=== PATIENT | female | born 1955 | race African-American/Black ===

== ENCOUNTER 2018-01-09 15:57 | Emergency (ER) | payer MEDICARE ==
[2018-01-09] MEDS ORDERED: Oxymetazoline HCl 0.05% ( 15 ML ) ONE (16:37)
[2018-01-09 16:39] LABS: #Basophils 0.1 thou/uL (0.0-0.2); #Eosinphils 0.4 thou/uL (0.0-0.7); #Lymphocytes 4.1 thou/uL (1.20-3.40); #Monocytes 0.5 thou/uL (0.11-0.59); #Neutrophils 3.7 thou/uL (1.40-6.50); %Basophils 1.1 % (0.0-1.0); %Eosinophils 4.6 % (0.0-10.0); %Lymphocytes 46.8 % (21.0-51.0); %Monocytes 5.2 % (0.0-10.0); %Neutrophils 42.4 % (42.0-75.0); Hemoglobin 11.2 g/dL (12.0-16.0); Mean Corpuscular HGB CONC 32.5 g/dL (32.0-36.0); Mean Corpuscular Hemoglobin 26.6 pg (27.0-31.0); Mean Corpuscular Volume 81.9 fL (78.0-98.0); Mean Platelet Volume 8.8 fL (7.4-10.4); Platelet Count 299 thou/uL (130-400); RBC Distribution Width 13.2 % (11.5-14.5); Red Blood Cell (RBC) Count 4.22 mill/uL (4.20-5.40); White Blood Cell (WBC) Count 8.7 thou/uL (4.8-10.8)
[2018-01-09 17:03] LABS: ALT (SGPT) 26 U/L (8-55); AST (SGOT) 17 U/L (5-34); Albumin 4.1 g/dL (3.4-4.8); Alkaline Phosphatase 116 U/L (40-150); Anion Gap 14 mmol/L (10-20); BUN (Urea Nitrogen) 23 mg/dL (9.8-20.1); Bilirubin, Total 0.2 mg/dL (0.2-1.2); Calc. Creatinine Clearance 0 mL/min (70-130); Calcium 9.5 mg/dL (7.8-10.44); Carbon Dioxide 25 mmol/L (23-31); Chloride 104 mmol/L (98-107); Estimated GFR-MDRD 52; Globulin 3.1 g/dL (2.4-3.5); Glucose 126 mg/dL (80-115); Potassium 3.8 mmol/L (3.5-5.1); Protein, Total 7.2 g/dL (6.0-8.3); Sodium 139 mmol/L (136-145)
[2018-01-09 17:04] LABS: CKMB 1.8 ng/mL (0-6.6); Troponin I Less than 0.010 ng/mL (< 0.028)
--- NOTE | 2018-01-09 17:05 | CT ---
CT BRAIN WITHOUT CONTRAST: Date: 01/09/18 HISTORY: Dizziness. FINDINGS: Comparison made with exam dated 07/19/14. No evidence of acute infarct, hemorrhage, midline shift, or abnormal extra-axial fluid collections ar e seen. The ventricular size is normal and the basilar cisterns are patent. The bony calvarium is int act. The visualized paranasal sinuses and mastoid air cells are well aerated. IMPRESSION: No CT evidence of acute intracranial process. POS: [facility]
--- NOTE | 2018-01-13 23:33 | EKG ---
Test Reason : Blood Pressure : / mmHG Vent. Rate : 078 BPM Atrial Rate : 078 BPM P-R Int : 158 ms QRS Dur : 086 ms QT Int : 390 ms P-R-T Axes : 069 -02 022 degrees QTc Int : 444 ms Normal sinus rhythm Normal ECG Confirmed by CAITLYN DOWNS MD ([id number]), editor publications TRESA GUEVARA ([id number]) on 01/13/2018 11:33:33 PM Referred By: Confirmed By:CAITLYN DOWNS MD
== END 2018-01-09 19:55 | disposition home or self-care (01) ==
LOC: ERS 15:57
DX: R42 Dizziness and giddiness (principal); I10 Essential (primary) hypertension; F32.9 Major depressive disorder, single episode, unspecified; Z79.899 Other long term (current) drug therapy
CPT/HCPCS: 70450; 80053; 82553; 84484; 85025; 93005

== ENCOUNTER 2018-01-25 00:02 | Emergency (ER) | payer MEDICARE ==
[2018-01-25 00:35] LABS: #Basophils 0.1 thou/uL (0.0-0.2); #Eosinphils 0.2 thou/uL (0.0-0.7); #Lymphocytes 5.7 thou/uL (1.20-3.40); #Neutrophils 7.4 thou/uL (1.40-6.50); %Basophils 0.8 % (0.0-1.0); %Eosinophils 1.7 % (0.0-10.0); %Lymphocytes 39.3 % (21.0-51.0); %Monocytes 7.2 % (0.0-10.0); %Neutrophils 51.1 % (42.0-75.0); Hemoglobin 11.8 g/dL (12.0-16.0); Mean Corpuscular HGB CONC 32.4 g/dL (32.0-36.0); Mean Corpuscular Hemoglobin 26.4 pg (27.0-31.0); Mean Corpuscular Volume 81.5 fL (78.0-98.0); Mean Platelet Volume 8.2 fL (7.4-10.4); Platelet Count 308 thou/uL (130-400); RBC Distribution Width 13.7 % (11.5-14.5); Red Blood Cell (RBC) Count 4.46 mill/uL (4.20-5.40); White Blood Cell (WBC) Count 14.5 thou/uL (4.8-10.8)
[2018-01-25 00:53] LABS: ALT (SGPT) 40 U/L (8-55); AST (SGOT) 18 U/L (5-34); Albumin 4.2 g/dL (3.4-4.8); Alkaline Phosphatase 123 U/L (40-150); Anion Gap 13 mmol/L (10-20); BUN (Urea Nitrogen) 34 mg/dL (9.8-20.1); Bilirubin, Total 0.3 mg/dL (0.2-1.2); Calc. Creatinine Clearance 0 mL/min (70-130); Carbon Dioxide 24 mmol/L (23-31); Chloride 105 mmol/L (98-107); Estimated GFR-MDRD 47; Globulin 3.1 g/dL (2.4-3.5); Glucose 113 mg/dL (80-115); Potassium 4.1 mmol/L (3.5-5.1); Protein, Total 7.3 g/dL (6.0-8.3); Sodium 138 mmol/L (136-145)
[2018-01-25 00:56] LABS: CKMB 2.6 ng/mL (0-6.6); Troponin I Less than 0.010 ng/mL (< 0.028)
[2018-01-25] MEDS ORDERED: Aspirin 325 MG TAB ONE (01:52)
--- NOTE | 2018-01-25 07:50 | RAD ---
PORTABLE CHEST 1 VIEW: DATE: 01/15/2018. TIME: 12:28 a.m. HISTORY: Chest pain. FINDINGS: Exam is made with the exam of 01/11/2012. The heart size is normal. The aorta is tortuous. The lungs are expanded without focal areas of cons olidation, pneumothorax, or pleural effusions. IMPRESSION: No acute process. POS: [facility]
== END 2018-01-25 01:59 | disposition home or self-care (01) ==
LOC: ERS 00:02
DX: F41.0 Panic disorder [episodic paroxysmal anxiety] (principal); R07.89 Other chest pain; F32.9 Major depressive disorder, single episode, unspecified; I10 Essential (primary) hypertension; Z87.891 Personal history of nicotine dependence; Z79.899 Other long term (current) drug therapy
CPT/HCPCS: 36415; 71045; 80053; 82553; 83880; 84484; 85025; 93005

== ENCOUNTER 2018-07-29 13:09 | Inpatient (IN) | payer MEDICARE ==
[~2018-07-29 13:09] MED LIST: ISOVUE-370 76%-LOCM 1 ML ONE
[2018-07-29] MEDS ORDERED: Fleet Enema 133 ML BOT FS SCH (14:00)
[2018-07-29 14:20] LABS: Bilirubin Small (Negative); Blood, Urine Large (Negative); Clarity CLOUDY (Clear); Glucose, Urine (Dipstick) Negative (Negative); Leukocyte Large (Negative); Nitrite Negative (Negative); Protein, Urine (Dipstick) 100 mg/dL (Neg-Trace); Specific Gravity, Urine 1.025 (1.002-1.036); pH, Urine 5.5 (5.0-9.0)
[2018-07-29 14:23] LABS: Bacteria/HPF None Seen HPF (None Seen); Squamous Epithelial 0-3 HPF (0-3)
[2018-07-29 14:25] LABS: Yeast-AUWi Flag 97.1 (0-25.0)
[2018-07-29 14:36] LABS: RBC/HPF GREATER THAN 50-TNTC HPF (0-3)
[2018-07-29 14:37] LABS: Hyaline Casts/LPF 4-6 HYALINE CAST LPF (0-3 Hyaline); Other Casts/LPF 0-3 COARSE GRAN LPF (0-3 Hyaline); Renal Epithelial 0-3 HPF (0-3); Transitional Epithelial 0-3 HPF (0-3); Yeast-All Forms None Seen HPF (None Seen)
[2018-07-29 15:04] LABS: #Eosinphils 0.2 thou/uL (0.0-0.7); #Lymphocytes 2.5 thou/uL (1.20-3.40); #Monocytes 0.9 thou/uL (0.11-0.59); #Neutrophils 10.4 thou/uL (1.40-6.50); %Basophils 0.2 % (0.0-1.0); %Eosinophils 1.7 % (0.0-10.0); %Lymphocytes 17.6 % (21.0-51.0); %Monocytes 6.4 % (0.0-10.0); Hemoglobin 10.5 g/dL (12.0-16.0); Mean Corpuscular HGB CONC 31.8 g/dL (32.0-36.0); Mean Corpuscular Hemoglobin 24.8 pg (27.0-31.0); Mean Platelet Volume 8.3 fL (7.4-10.4); Platelet Count 291 thou/uL (130-400); Red Blood Cell (RBC) Count 4.25 mill/uL (4.20-5.40)
[2018-07-29 15:26] LABS: ALT (SGPT) 22 U/L (8-55); AST (SGOT) 22 U/L (5-34); Albumin 4.3 g/dL (3.4-4.8); Alkaline Phosphatase 151 U/L (40-150); Anion Gap 20 mmol/L (10-20); BUN (Urea Nitrogen) 30 mg/dL (9.8-20.1); Bilirubin, Total 0.2 mg/dL (0.2-1.2); Calc. Creatinine Clearance 0 mL/min (70-130); Calcium 10.2 mg/dL (7.8-10.44); Carbon Dioxide 21 mmol/L (23-31); Chloride 102 mmol/L (98-107); Estimated GFR-MDRD 34; Globulin 3.9 g/dL (2.4-3.5); Glucose 113 mg/dL (80-115); Lipase 16 U/L (8-78); Potassium 4.5 mmol/L (3.5-5.1); Protein, Total 8.2 g/dL (6.0-8.3); Sodium 138 mmol/L (136-145)
--- NOTE | 2018-07-29 16:00 | CT ---
CT ABDOMEN AND PELVIS WITH IV CONTRAST: Multiple axial tomograms obtained through the abdomen and pelvis with IV enhancement. INDICATION: Abdominal pain. Recently diagnosed with endometrial cancer. FINDINGS: Images through the lung bases reveal numerous pulmonary nodules in both lung bases consistent with me tastatic disease. These nodules measure up to 1 cm and are too numerous to count. The liver and spleen appear unremarkable. The pancreas is unremarkable. There are several large partially calcified gallstones seen in a contracted gallbladder. Evidence of gallbladder wall thickening without significant pericholecystic inflammation. Adrenal glands normal. Review of the kidneys shows a nonobstructing calculus measuring 5 mm in the lower pole collecting str uctures of the left kidney. Kidneys are otherwise unremarkable. No hydronephrosis. Small bowel loops appear normal caliber. The colon is unremarkable. Images through the pelvis reveal a significantly enlarged uterus with very prominent endometrial cavi ty which would correspond to the history of endometrial cancer. The bladder is mostly contracted. H eterogeneity in the uterine fundus suggests a coexisting fibroid as well. There is a 2.6 cm cyst in the left adnexa which appears to be ovarian. There is also 3.8 cm cyst in the right adnexa which appears to be ovarian. Numerous small nonspecific paraaortic lymph nodes. Osseous structures unremarkable. IMPRESSION: 1. Numerous pulmonary nodules seen in the lung bases consistent with metastatic disease. 2. Cholelithiasis with a contracted gallbladder and mildly thickened gallbladder wall. 3. Significantly enlarged uterus with a very pronounced endometrial cavity which corresponds to the known history of endometrial cancer. Probable coexisting uterine fibroid in the fundus. 4. Bilateral ovarian cyst as described. POS: [facility]
[2018-07-29] MEDS ORDERED: cefTRIAXone\\ROCEPHIN 2 GM VIAL ONE (16:01)
--- NOTE | 2018-07-29 16:28 | CT ---
CTA CHEST WITH CONTRAST: Technique: Multiple axial tomograms were obtained through the chest with IV enhancement following an angio protocol. Multiplanar reconstruction and 3D post processing. Indications: Shortness of breath. Recently diagnosed with endometrial cancer. FINDINGS: Pulmonary arteries show adequate opacification. There are numerous pulmonary emboli identified, primarily on the right. Embolus is seen into a right main upper lobe pulmonary artery. Numerous emboli are seen into left lower lobe pulmonary arteries. S mall emboli are seen in distal left lower lobe pulmonary arteries. Thoracic aorta unremarkable. Mediastinum otherwise unremarkable. Review of the lung hicks show numerous bilateral pulmonary nodules which are too numerous to count. These nodules measure up to 1.5 cm but mostly are subcentimeter. No effusion or infiltrate. Interstit ial prominence is seen which is suspicious for interstitial spread of neoplasm. IMPRESSION: 1. Bilateral pulmonary emboli. 2. Numerous bilateral pulmonary nodules consistent with metastatic disease. Findings relayed to refer ring physician. Code CR POS: [facility]
[2018-07-29] MEDS ORDERED: Enoxaparin Sodium 100 MG/ML SYRINGE ONE (16:53)
[2018-07-29] MEDS ORDERED: HYDROcodone/Acetaminophen 5/325 mg Tablet PO PRN ×2 (18:10)
[2018-07-29] MEDS ORDERED: Ondansetron PF 4 MG/2 ML Vial IVP PRN (18:10)
[2018-07-29] MEDS ORDERED: Ondansetron ODT 4 MG TAB SL PRN (18:10)
[2018-07-29] MEDS ORDERED: Sodium Chloride 0.9% 1,000 ML IV SCH (18:10)
[2018-07-29 18:27] VITALS: BMI 23.1
--- NOTE | 2018-07-29 19:19 | ULT ---
GALLBLADDER ULTRASOUND: History: Follow up from CT which demonstrated gallstones. FINDINGS: Gallbladder is contracted and filled with shadowing gallstones which corresponds to the findings on C T. No evidence of pericholecystic edema. Common bile duct is normal. The pancreas is obscured. The liver shows evidence of fatty infiltration. The right kidney is unremarkable. IMPRESSION: Gallbladder is contracted and filled with gallstones which corresponds to CT findings. POS: [facility]
[2018-07-29] MEDS ORDERED: Acetaminophen 325 MG TAB PO PRN (19:49)
[2018-07-29] MEDS ORDERED: hydrALAZINE 20 MG/ML VIAL SLOW IVP PRN (20:07)
--- NOTE | 2018-07-29 20:44 | HP ---
CHIEF COMPLAINT: Sick in nondenominational. HISTORY OF PRESENT ILLNESS: This is a 63-year-old female with recent diagnosis of endometrial cancer, starting the evaluation with MD Mclaughlin/Dr. Hong, hypertension, herniated cervical-spine disks, who presents to the emergency room with the above complaint. The patient reports that she has not been feeling well for at least a few weeks. Today, she specifically states that she had increasing back pain while sitting at nondenominational. She left nondenominational, went out to her car and took a [place] , and then experienced worsening associated with feeling sweaty, anxious, nauseous, and dizzy. She felt unsteady and went to the bathroom floor to lay down on the tile with improvement in her symptoms. She notes 2 other episodes of similar symptoms within the past 8 months. Because of these symptoms, the patient presented to the emergency room. The patient has been undergoing evaluation for abnormal uterine bleeding. She has been having intermittent abdominal cramping, constipation, night sweats, chills , and some intermittent diarrhea. She sees Dr. Mccormack/Driver License Technician at [facility], completed a CT scan and ultrasound which were abnormal. She was referred to MD Mclaughlin/Dr. Hong, and has a plan for evaluation and biopsy. The patient reports onset of menopause at age 51, and onset of abnormal uterine bleeding 3 months ago which she attributed to celebrex use. The patient does note a recent sinus infection and treatment with amoxicillin, and states that she was started on sulfamethoxazole, for what she thinks is a UTI, she has taken 1 dose of that. In the emergency room, the patient was found to have bilateral PE, worsening of her renal function, as well as metastatic disease, and hospitalist called for admission. She received Lovenox 100 mg subcutaneous, 2 g ceftriaxone, 1 L of IV fluids x2 , 1 Fleet enema, and vancomycin 1 g. ALLERGIES: CODEINE. CURRENT MEDICATIONS: Reconciled with the patient. 1. Lasix 20 mg daily. 2. Clonidine 0.1 mg b.i.d. 3. Celebrex 200 mg 1 or 2 times per day. 4. Sulfamethoxazole, she started that yesterday for 1 dose. 5. [place] 5/325 every 6 hours as needed. PAST MEDICAL HISTORY: 1. Hypertension. 2. Chronic back pain. 3. Herniated disks in her neck. PAST SURGICAL HISTORY: 1. Tonsillectomy. 2. Appendectomy. 3. Bilateral shoulders. 4. Tubal ligation. 5. Fistula repair. SOCIAL HISTORY: The patient lives alone, her daughter is her surrogate decision maker, named Thao. She denies any alcohol or tobacco. FAMILY HISTORY: Significant for cancer and heart disease. REVIEW OF SYSTEMS: Notable for constipation, chills, night sweats, intermittent abdominal cramping, abnormal uterine bleeding, nausea and vomiting, and productive cough. She was recently treated for a sinus infection. Negative for any fevers , headache, change in her vision. All remaining review of systems is reviewed and negative. PHYSICAL EXAMINATION: VITAL SIGNS: Blood pressure 173/77, pulse 53, temperature 98.4, respirations 20 , and sats 98% on room air. GENERAL: Awake, alert, responsive, in no apparent distress. Able to speak in full sentences. HEENT: Pupils equal and round. Oral mucosa pink and moist. NECK: Supple, nontender. LYMPHATICS: No palpable cervical or supraclavicular lymphadenopathy. LUNGS: Clear to auscultation bilateral with distant lung sounds on the left lower side. No audible wheezing, rhonchi, or rales. HEART: Normal S1 and S2. Regular rate and rhythm. No audible murmurs. ABDOMEN: Soft with present bowel sounds. No tenderness to palpation. EXTREMITIES: No clubbing, cyanosis, or edema. SKIN: No visible rashes. NEUROLOGIC: Moves arms and legs equally. No focal deficits. PSYCHIATRIC: Euthymic, linear, logical, goal directed thought process. LABORATORY AND DIAGNOSTIC DATA: Labs reviewed. CBC; 14, 10.5, 33.3, 291. Chemistry; 138, 4.5, 102, 21, 30, 1.84, 113. Lactic acid was 2.5, came down to 2.0. Calcium 10.2, total bilirubin 0.2, AST 22, ALT 22, alkaline phosphatase 151, total protein 8.2, and albumin 4.3. Urine shows present protein, trace ketones, large blood, small bilirubin, large leukocyte esterase, greater than 50 red blood cells and white blood cells. Abdominal ultrasound shows gallbladder contracted and filled with gallstones which corresponds to CT findings, fatty liver. CT angiogram of the chest shows numerous PE, primarily on the right; numerous pulmonary nodules consistent with metastatic disease, which are too numerous to count, measuring up to 1.[address] with IV contrast shows numerous pulmonary nodules in the lung bases, consistent with metastatic disease; cholelithiasis with a contracted gallbladder and mildly thickened gallbladder wall; significantly enlarged uterus with a very pronounced endometrial cavity, corresponds to the known history of endometrial cancer; probable coexisting uterine fibroid and bilateral ovarian cysts. EKG, personally reviewed, sinus rhythm, normal axis, QT corrected is 461, no ST changes. IMPRESSION: 1. Pulmonary emboli. 2. Metastatic cancer by history, consistent with endometrial cancer. However, no biopsy has been obtained. 3. Urinary tract infection with hematuria. 4. Cholelithiasis with mild gallbladder wall thickening, uncertain if the patient is symptomatic from this. 5. Chronic kidney disease based on chart review with an acute kidney injury. 6. History of hypertension, unknown control. 7. Anemia, appears chronic. 8. Constipation, likely secondary to uterine enlargement. PLAN: 1. Admission in the hospital. 2. IV fluid hydration as the patient did receive a contrast study and does have an acute kidney injury in the context of chronic kidney disease. 3. Consultation with Nephrology to monitor and manage renal function, as well as Oncology for both the PE as well as this new diagnosis of metastatic disease. 4. Continuing the Rocephin. Because of the renal function, we will hold vancomycin for now and add this if the patient becomes unstable, starts having fevers, or there are any other concerns. 5. Continuing the Lovenox, creatinine clearance is estimated in the 40s (based on weight from the ER), will use the b.i.d. dosing. We will request Pharmacy to follow along and adjust the dosing based on her renal function change. 6. Continuing her home clonidine with hold parameters for bradycardia, we will use p.r.n. hydralazine for significantly elevated blood pressures. 7. Monitoring on telemetry and we will order echocardiogram to evaluate for heart strain. If the patient is to undergo chemotherapy, this will be helpful as well. 8. Follow urine culture. Monitor hematuria, type and screen given that pt is now on full anticoagulation. 9. We will use stool softeners both scheduled and p.r.n. for constipation. 10. GI prophylaxis not indicated, the patient is written for regular diet. 11. Code status is full, and surrogate decision maker is the patient's daughter as noted above. 12. The patient is at high risk given age, comorbidities, and current presentation. 13. Reviewed the plan of care with the patient, who demonstrates understanding. No questions or further needs at the end of evaluation. Job ID: [id number] [facility]
[2018-07-29] MEDS: cloNIDine 0.1 MG TAB PO SCH (21:03)
[2018-07-29] MEDS: Senokot S 8.6-50 MG TAB PO SCH (22:26)
[2018-07-29] MEDS: HYDROcodone/Acetaminophen 5/325 mg Tablet PO PRN (22:26)
[2018-07-29] MEDS: Sodium Chloride 0.9% 1,000 ML IV SCH (22:36)
[2018-07-30] MEDS: Sodium Chloride 0.9% 1,000 ML IV SCH ×2 (05:28→16:48)
[2018-07-30] MEDS: Polyethylene Glycol 3350 17 GM Packet PO SCH ×2 (07:50→09:15)
[2018-07-30] MEDS: Senokot S 8.6-50 MG TAB PO SCH ×3 (07:50→19:38)
[2018-07-30] MEDS: cloNIDine 0.1 MG TAB PO SCH ×2 (07:53→07:55)
[2018-07-30] MEDS: Enoxaparin Sodium 100 MG/ML SYRINGE SC SCH ×2 (07:53→19:38)
[2018-07-30 07:55] LABS: #Eosinphils 0.2 thou/uL (0.0-0.7); #Lymphocytes 3.5 thou/uL (1.20-3.40); #Monocytes 0.7 thou/uL (0.11-0.59); #Neutrophils 5.7 thou/uL (1.40-6.50); %Basophils 0.4 % (0.0-1.0); %Eosinophils 2.4 % (0.0-10.0); %Lymphocytes 33.9 % (21.0-51.0); %Monocytes 7.1 % (0.0-10.0); %Neutrophils 56.1 % (42.0-75.0); Hemoglobin 10.2 g/dL (12.0-16.0); Mean Corpuscular HGB CONC 32.7 g/dL (32.0-36.0); Mean Corpuscular Hemoglobin 25.1 pg (27.0-31.0); Mean Corpuscular Volume 76.8 fL (78.0-98.0); Mean Platelet Volume 8.5 fL (7.4-10.4); Platelet Count 294 thou/uL (130-400); RBC Distribution Width 14.1 % (11.5-14.5); Red Blood Cell (RBC) Count 4.09 mill/uL (4.20-5.40); White Blood Cell (WBC) Count 10.2 thou/uL (4.8-10.8)
[2018-07-30 08:16] LABS: Anion Gap 15 mmol/L (10-20); BUN (Urea Nitrogen) 21 mg/dL (9.8-20.1); Calc. Creatinine Clearance 79 mL/min (70-130); Calcium 9.9 mg/dL (7.8-10.44); Carbon Dioxide 20 mmol/L (23-31); Chloride 108 mmol/L (98-107); Estimated GFR-MDRD 52; Glucose 101 mg/dL (80-115); Potassium 4.3 mmol/L (3.5-5.1); Sodium 139 mmol/L (136-145)
[2018-07-30] MEDS ORDERED: Enoxaparin Sodium 60 MG/0.6 ML SYRINGE SC SCH (09:00)
--- NOTE | 2018-07-30 10:06 | PDOC.PN ---
- Subjective Encounter Start Date: 07/30/18 Encounter Start Time: 10:03 Ms. Farley was seen today in follow-up of PE and metastatic Endometrial cancer. She does not have any chest pain or shortness of breath. - Objective Resuscitation Status - Order Detail: 07/29/18 19:49 Resuscitation Status Routine Resuscitation Status: FULL: Full Resuscitation MAR Reviewed: Yes Vital Signs & Weight: Vital Signs (12 hours) Temp Pulse Resp BP BP Pulse Ox 07/30/18 07:55 154/82 H 07/30/18 07:47 98.3 F 63 20 134/67 98 07/30/18 07:20 98 07/30/18 03:06 98.6 F 61 18 146/68 H 97 Weight Weight 238 lb 6.4 oz I&O: 07/29/18 07/30/18 07/31/18 06:59 06:59 06:59 Intake Total 1800 300 Balance 1800 300 Result Diagrams: 07/30/18 07:22 07/30/18 07:22 Phys Exam - Physical Examination HEENT: PERRLA, sclera anicteric Respiratory: no wheezing, no rales, no rhonchi, clear to auscultation bilateral Cardiovascular: RRR, no significant murmur, no rub Gastrointestinal: soft, non-tender, no distention, positive bowel sounds Musculoskeletal: no edema, pulses present + varicose veins Dx/Plan (1) Pulmonary emboli Code(s): I26.99 - OTHER PULMONARY EMBOLISM WITHOUT ACUTE COR PULMONALE Status : Acute (2) Endometrial cancer Code(s): C54.1 - MALIGNANT NEOPLASM OF ENDOMETRIUM Status: Acute (3) [id number] kidney injury Code(s): N17.9 - ACUTE KIDNEY FAILURE, UNSPECIFIED; N18.9 - CHRONIC KIDNEY DISEASE, UNSPECIFIED Status: Acute (4) Hypertension Code(s): I10 - ESSENTIAL (PRIMARY) HYPERTENSION Status: Chronic - Plan * Bilateral Pulmonary Emboli- Will continue Lovenox for now. She is hemodynamically stable. Echo has been ordered * HTN- blood pressure is stable * Acute on chronic kidney injury- improved with hydration * Endometrial cancer- she has not yet had an endometrial biopsy- will discuss with her Physician at [facility] as to what would be the best approach to her continued care. She may rquire transfer to [facility].
[2018-07-30] MEDS: HYDROcodone/Acetaminophen 5/325 mg Tablet PO PRN ×3 (12:34→21:01)
--- NOTE | 2018-07-30 13:32 | CON ---
DATE OF CONSULTATION: HISTORY OF PRESENT ILLNESS: Ms. Farley is a 63-year-old black female, who was initially admitted due to complains of unwellness. She had a recent diagnosis of pulmonary metastasis secondary to a presumed spread from her underlying endometrial cancer. She actually is supposed to follow up with Dr. Hong today for further evaluation. We are being consulted for acute kidney injury. Please note that her home medications included Celebrex, Bactrim as well as some furosemide. REVIEW OF SYSTEMS: Positive for generalized malaise. Positive for nausea, but no vomiting. Positive for diaphoresis and anxiety. The patient denies any chest pain. No shortness of breath. No gross hematuria. No dysuria or urinary frequency. MEDICATIONS: Her medications include the following; 1. Ceftriaxone 2 g IV q.24 hours. 2. Catapres 0.1 mg p.o. b.i.d. 3. Lovenox 100 mg subcu q.12. 4. Hydralazine 10 mg IV q.4 p.r.n. 5. MiraLAX 17 g daily. 6. Normal saline 100 mL/h. PAST MEDICAL HISTORY: Includes; 1. Endometrial cancer. 2. Recent diagnosis of pulmonary metastasis. 3. Hypertension. 4. DJD. 5. Recent diagnosis of pulmonary embolism. 6. Chronic low back pain. 7. Herniated disk on her neck. PAST SURGICAL HISTORY: Status post tubal ligation, status post fistula repair, status post bilateral shoulder joint repair, status post appendectomy, and status post tonsillectomy. SOCIAL HISTORY: The patient currently lives alone. She is , 2 children. Currently lives in [place], but have another home address in [place]. Did use marijuana for about 10 years. Occasional alcohol. 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 ALLERGIES: CONTRAST, ADVERSE REACTION TO CODEINE. TRAUMA: None. IMMUNIZATIONS: Not up-to-date. HOSPITALIZATIONS: Please see past medical history. FAMILY HISTORY: No family history of ESRD. PHYSICAL EXAMINATION: VITAL SIGNS: Blood pressure is 154/82, heart rate 63, respiratory rate 20, temperature 98.3, and pulse ox 98%. GENERAL: The patient is awake, alert, comfortable, not in overt distress. SKIN: Adequate turgor. HEENT: Pinkish conjunctivae. Anicteric sclerae. NECK: No neck mass. No carotid bruits. No JVD. CHEST: No deformities. LUNGS: Clear breath sounds. No wheezing. No crackles. HEART: Normal sinus rhythm. No murmur. No gallops. No rubs. ABDOMEN: Globular, soft, and nontender. No masses. EXTREMITIES: No edema. No deformities. NEUROLOGICAL: Awake and oriented to 3 spheres. Moving all extremities. No tremors. No asterixis. LABORATORY DATA: Laboratories of July 30, 2018; white count 10.2, hemoglobin 10.2. Sodium 139, potassium 4.3, chloride 108, carbon dioxide 20, BUN 21, creatinine 1.26, glucose 101, and calcium 9.9. Lactic acid is 2.0. Troponin I less than 0.010. On July 29, 2018, creatinine 1.84. On January 25, 2018, creatinine 1.37. Urinalysis of July 29, 2018, specific gravity 1.025, rbc greater than 50, wbc greater than 50, 0 to 3 coarse granular casts. IMAGING DATA: Chest x-ray shows multiple pulmonary nodules. CT of the chest and thorax - pulmonary nodules and bilateral pulmonary emboli. CT scan of the abdomen and pelvis shows the kidney has no obstruction or no masses. finding of cholelithiasis with contracted gallbladder, significantly enlarged uterus with increased endometrial cavity, which corresponds to a known history of endometrial cancer. ASSESSMENT AND PLAN: 1. Acute kidney injury - consider hemodynamically-mediated renal dysfunction. Renal function is improved with IV hydration already. Please note, she did show some activity in the urine sediment suggesting some superimposed mild tubular injury. Agree with current management. Continue current IV hydration. There is no indication for any dialytic intervention. 2. Pulmonary metastasis - Oncology referral will be done. She follows up with an oncologist back at [facility]. Overall agree with current management. Recheck basic metabolic panel and CBC in a.m. Job ID: [id number] [facility]
[2018-07-30] MEDS: cefTRIAXone\\ROCEPHIN 2 GM in Sodium Chloride 0.9% 100 ML IVPB SCH (17:18)
[2018-07-30] MEDS: CLONIDINE 0.1 MG TAB PO SCH (19:37)
[2018-07-31] MEDS: Sodium Chloride 0.9% 1,000 ML IV SCH ×2 (00:46→15:06)
[2018-07-31] MEDS: HYDROcodone/Acetaminophen 5/325 mg Tablet PO PRN ×4 (00:52→17:53)
[2018-07-31 07:00] LABS: #Eosinphils 0.3 thou/uL (0.0-0.7); #Lymphocytes 2.3 thou/uL (1.20-3.40); #Monocytes 0.9 thou/uL (0.11-0.59); #Neutrophils 4.6 thou/uL (1.40-6.50); %Basophils 0.5 % (0.0-1.0); %Eosinophils 3.7 % (0.0-10.0); %Lymphocytes 27.9 % (21.0-51.0); %Monocytes 10.8 % (0.0-10.0); %Neutrophils 57.1 % (42.0-75.0); Hemoglobin 9.2 g/dL (12.0-16.0); Mean Corpuscular Hemoglobin 24.8 pg (27.0-31.0); Mean Corpuscular Volume 77.5 fL (78.0-98.0); Mean Platelet Volume 8.7 fL (7.4-10.4); Platelet Count 265 thou/uL (130-400); RBC Distribution Width 14.2 % (11.5-14.5); White Blood Cell (WBC) Count 8.1 thou/uL (4.8-10.8)
[2018-07-31 07:21] LABS: Anion Gap 13 mmol/L (10-20); BUN (Urea Nitrogen) 15 mg/dL (9.8-20.1); Calc. Creatinine Clearance 102 mL/min (70-130); Calcium 9.2 mg/dL (7.8-10.44); Carbon Dioxide 18 mmol/L (23-31); Chloride 109 mmol/L (98-107); Estimated GFR-MDRD 70; Glucose 95 mg/dL (80-115); Potassium 4.1 mmol/L (3.5-5.1); Sodium 136 mmol/L (136-145)
[2018-07-31] MEDS: Senokot S 8.6-50 MG TAB PO SCH ×2 (09:00→09:01)
[2018-07-31] MEDS: Polyethylene Glycol 3350 17 GM Packet PO SCH (09:01)
[2018-07-31] MEDS: CLONIDINE 0.1 MG TAB PO SCH ×2 (09:01→20:10)
[2018-07-31] MEDS: Enoxaparin Sodium 100 MG/ML SYRINGE SC SCH ×2 (09:21→21:37)
--- NOTE | 2018-07-31 09:51 | PRG ---
DATE OF SERVICE: 07/31/2018 SUBJECTIVE: Ms. Farley is a 63-year-old black female, who was admitted due to a pulmonary mets from a presumptive endometrial cancer. We were consulted for her acute kidney injury. Renal function is much improved with IV hydration and discontinuation of the nephrotoxic drugs-Celebrex, Bactrim, and furosemide. She is feeling better. No new complaints. OBJECTIVE: VITAL SIGNS: Blood pressure is 167/73, heart rate 58, respiratory rate 18, temperature 97.9, and pulse ox 97%. GENERAL: Awake, alert, comfortable, not in distress. SKIN: Adequate turgor. HEENT: She has pinkish conjunctivae. Anicteric sclerae. NECK: No neck mass. No carotid bruits. No JVD. CHEST: No deformities. LUNGS: Clear breath sounds. HEART: Normal sinus rhythm. No murmur. No gallops. No rubs. ABDOMEN: Globular. Soft. Nontender. No masses. EXTREMITIES: No edema. No deformities. MEDICATIONS: Medications of July 31, 2018, reviewed. LABORATORY DATA: On July 31, 2018, white count 8.1, hemoglobin 9.2, sodium 136, potassium 4.1, chloride 109, carbon dioxide 18, BUN 15, creatinine 0.98, glucose 95. GFR 70 mL/minute. Calcium 9.2. ASSESSMENT AND PLAN: 1. Acute kidney injury-much improved renal function with IV hydration. Off furosemide, celecoxib, and Bactrim. Continue current IV hydration for the moment. There is no indication for any dialytic intervention. 2. Pulmonary metastasis secondary from endometrial cancer ?. Plan is for her to eventually have a biopsy of the pulmonary lesions. This will be done at [facility]. Overall, agree with current management. Due to the improved renal function, we will be signing off. Please recall if needed. Job ID: [id number]
--- NOTE | 2018-07-31 10:36 | PDOC.PN ---
- Subjective Encounter Start Date: 07/31/18 Encounter Start Time: 10:33 Ms. Farley was seen today in follow-up of PE and Endometrial cancer. She does not have any chest pain or difficulty breathing. - Objective Resuscitation Status - Order Detail: 07/29/18 19:49 Resuscitation Status Routine Resuscitation Status: FULL: Full Resuscitation MAR Reviewed: Yes Vital Signs & Weight: Vital Signs (12 hours) Temp Pulse Resp BP Pulse Ox 07/31/18 09:01 100 07/31/18 08:58 98.0 F 54 L 18 161/75 H 100 07/31/18 03:11 97.9 F 58 L 18 167/73 H 97 07/31/18 00:02 98.1 F 97 18 148/71 H 97 Weight Weight 238 lb 6.4 oz I&O: 07/30/18 07/31/18 08/01/18 06:59 06:59 06:59 Intake Total 1800 1380 Balance 1800 1380 Result Diagrams: 07/31/18 06:48 07/31/18 06:48 Phys Exam - Physical Examination HEENT: PERRLA Respiratory: no wheezing, no rales, no rhonchi, clear to auscultation bilateral Cardiovascular: RRR, no significant murmur, no rub Gastrointestinal: soft, non-tender, no distention, positive bowel sounds Musculoskeletal: no edema, pulses present Dx/Plan (1) Pulmonary emboli Code(s): I26.99 - OTHER PULMONARY EMBOLISM WITHOUT ACUTE COR PULMONALE Status : Acute (2) Endometrial cancer Code(s): C54.1 - MALIGNANT NEOPLASM OF ENDOMETRIUM Status: Acute (3) Jmjbs-pc-gbswrve kidney injury Code(s): N17.9 - ACUTE KIDNEY FAILURE, UNSPECIFIED; N18.9 - CHRONIC KIDNEY DISEASE, UNSPECIFIED Status: Acute (4) Hypertension Code(s): I10 - ESSENTIAL (PRIMARY) HYPERTENSION Status: Chronic - Plan * PE- continue Lovenox SQ * Endometrial cancer- this is suspected from prior CT scan. She has not yet had a tissue diagnosis. I spoke with IR, and they feels the pulmonary nodules are too small to biopsy. I have explained this to the patient, and will consult the [facility] Hospitalist to see if they are able to get a biopsy * .Acute Kidney injury- renal function is improving * HTN- her blood pressure has been a bit elevated- will add PRN Hydralazine and continue Clonidine
[2018-07-31] MEDS ORDERED: hydrALAZINE 25 MG TAB PO PRN (10:39)
--- NOTE | 2018-07-31 14:48 | CON ---
DATE OF CONSULTATION: 07/30/2018 HISTORY OF PRESENT ILLNESS: Ms. Farley is a 63-year-old female, who recently was diagnosed with an endometrial mass as well as probable pulmonary metastases. She was seen at [facility] and was attempted to be sent to [place], at which time she refused and she was referred to [facility]. She has seen Dr. Hong there and he has recommended a biopsy of the endometrium as well as scheduled a PET scan for later this week. Unfortunately, she got dizzy and somewhat lightheaded following advent on the day of admission and came to the emergency room because of being presyncopal as well as having palpitations. She was found to have not only pulmonary metastases on CT scan, but also a pulmonary embolism. She is now on anticoagulation and is resting more comfortably. She states she has a PET scan scheduled for later this week in [place] and she has not yet had the endometrial biopsy. She does admit to vaginal bleeding, but no other signs of bleeding at this time. Her palpitations have resolved and she denies any pleurisy at this time. PAST MEDICAL HISTORY: 1. Recent diagnosis of endometrial cancer, no pathologic diagnosis yet. 2. Obesity. 3. Hypertension. 4. Chronic back pain secondary to DJD. CURRENT MEDICATIONS: 1. Tylenol p.r.n. 2. [place] p.r.n. 3. Ceftriaxone. 4. Lovenox 100 mg subcu b.i.d. 5. Hydralazine 10 mg IV q.4 hours p.r.n. 6. Lactulose 20 g p.o. daily p.r.n. 7. Clonidine 0.1 mg p.o. b.i.d. 8. MiraLax 17 g p.o. daily p.r.n. 9. Senokot 2 tablets p.o. b.i.d. ALLERGIES: RED DYE AND CODEINE. SOCIAL HISTORY: She lives in [place] and has 2 children and several grandchildren who are quite supportive. She denies excessive tobacco or alcohol use. FAMILY HISTORY: Negative for endometrial cancer or colon cancer. REVIEW OF SYSTEMS: Otherwise, 10-point review of systems is negative. PHYSICAL EXAMINATION: VITAL SIGNS: Temperature 97.9, pulse 58, respirations 16 to 18, O2 saturation 96% on room air, and blood pressure 182/78. GENERAL: She is alert, awake, and oriented x3. She is quite pleasant, in no acute distress, and quite conversant. HEENT: Extraocular muscles are intact. Sclerae are anicteric. NECK: Supple without lymphadenopathy. CARDIOVASCULAR: Regular rhythm. LUNGS: Clear to auscultation bilaterally. ABDOMEN: Obese, nontender, and nondistended. EXTREMITIES: No edema. No petechiae. No ecchymosis. LABORATORY DATA: White blood cell count 10.2, hemoglobin 10.2, and platelets 294. Sodium 139, potassium 4.3, chloride 108, CO2 of 20, BUN 21, creatinine 1.2, glucose 101, calcium 9.9, AST 22, and ALT 22. IMAGING STUDIES: CT angiogram done in the emergency room shows bilateral pulmonary emboli as well as numeral bilateral pulmonary nodules consistent with metastatic disease. ASSESSMENT: Ms. Farley is a 63-year-old female with, 1. Pulmonary embolism. 2. Endometrial mass with likely pulmonary metastases. 3. Hypertension. PLAN: 1. I discussed the case with the patient as well as call Dr. Hong. Obviously, she needs a biopsy of the endometrium for further diagnostic purposes before therapeutic options can be identified. She is amenable to doing this in town if we discuss the case with Dr. Hong. We will get Gynecology involved to see if biopsy is possible here. 2. She is on full dose anticoagulation, which I would recommend at some point transitioning over to oral anticoagulants, we will leave this up to the Hospitalist Service. 3. Further treatment recommendations for the endometrial cancer after we have a biopsy. 4. She is on antihypertensives and these need to be continued. 5. We will collaborate with Dr. Hong and hopefully get a PET scan as an outpatient, but I think it is quite obvious she has metastatic disease to the lungs and this may or may not be necessary prior to starting the treatment. 6. We will follow up as an outpatient. Job ID: [id number]
[2018-07-31] MEDS ORDERED: cloNIDine 0.1 MG TAB PO PRN (16:04)
--- NOTE | 2018-07-31 16:16 | PDOC.EVN ---
Event Note - Event Note Event Note: LIFE ADVISOR hospitalist was consulted, and came to see the patient earlier today. She refused to have the biopsy done at that time because she said she was not ready. She also says she can not take the clonidine that comes from our pharmacy , because it has a tangerine color. She is allergic to red dye. She did not want to take the hydralazine p.o., as it has a orange color as well. The nurse gave her the other option which was the IV hydralazine. She was upset about this because she did not know prn medication was available, and felt like she should have been told on admission that this medication may be given. She also says the Hydralazine made her blood pressure drop " too fast". She also feels she is being rushed to have the biopsy. I listened to her concerns and explained about standing orders for prn medication. I also explained the rationale of using Hydralazine as a prn medication due to concerns for lowering her heart rate if Clonidine is given too often. I also urged her to try to have the biopsy done as her treatment with regards to the presumed endometrial cancer hinges on biopsy results. I also explained this to her daughter as well. I have discontinued the Hydralazine and ordered Clonidine to be given as needed , and this will be requested to be given from her home medication.
[2018-08-01] MEDS: CLONIDINE 0.1 MG TAB PO PRN ×2 (00:19→15:29)
[2018-08-01] MEDS: cefTRIAXone\\ROCEPHIN 2 GM in Sodium Chloride 0.9% 100 ML IVPB SCH ×2 (01:03→15:16)
[2018-08-01] MEDS: Sodium Chloride 0.9% 1,000 ML IV SCH ×4 (01:03→23:29)
[2018-08-01] MEDS: Senokot S 8.6-50 MG TAB PO SCH ×4 (01:51→21:34)
[2018-08-01] MEDS: CLONIDINE 0.1 MG TAB PO SCH ×2 (09:14→21:34)
[2018-08-01] MEDS: Polyethylene Glycol 3350 17 GM Packet PO SCH ×3 (09:15→21:35)
[2018-08-01] MEDS: Enoxaparin Sodium 100 MG/ML SYRINGE SC SCH ×2 (09:15→15:16)
--- NOTE | 2018-08-01 13:15 | PDOC.EVN ---
Event Note - Event Note Event Note: Attempted to perform EMB. Speculem placed but unable to visualize cervix. On palpation, cervix is extremely anteriorly placed. By history, she has had office attempts by both Dr. Turcios and by Dr. Fleming at [facility] here locally. Pt. will clearly need an EUA and EMB vs D&C in ER with Dr. Turcios at [facility] once discharged.
--- NOTE | 2018-08-01 14:10 | CON ---
DATE OF CONSULTATION: 07/31/2018 CHIEF COMPLAINT: Uterine mass and pulmonary nodules with diagnosis of pulmonary embolism concerning for endometrial cancer. HISTORY OF PRESENT ILLNESS: The patient is a 63-year-old female, who has been managed by Dr. Fleming at [facility], and recently was referred to Dr. Hong, an DATA SECURITY COORDINATOR Oncologist in [place] for concerns of endometrial cancer based on ultrasound findings. They have had some difficulty getting a biopsy both by Dr. Fleming and by Dr. Hong' office per the patient's report. She was recently admitted to the hospital here at [facility] with a diagnosis of pulmonary embolism, and given her history, DATA SECURITY COORDINATOR was consulted in an effort to assist with obtaining a biopsy. I spoke with the patient and reviewed with her what she understood about her current condition. We did share the concern for an endometrial cancer, though we do not have a definitive diagnosis. We have also discussed that we have been asked to participate in trying to obtain an endometrial sampling and recognize that this is proven difficult with 2 prior providers. We did agree after some discussion to proceed with a MEDICAL MASSAGE THERAPIST exam just to see the positioning and location of cervix and uterus on physical exam in an effort to plan the best approach for the biopsy. By history, the patient reports the cervix is extremely anterior and high. This may necessitate an unusual position for exam of hands and knees. Again, we have discussed the possibility of trying to obtain an endometrial sampling, which the patient has agreed to attempt. We also discussed the possible need to be placed in the hands and knees position, which may require additional nurses to assist with stability and reduce the risk of fall from the table. The patient has been invited to contact us when she sees DATA SECURITY COORDINATOR when she was ready for the biopsy. I had throughout the day went by the room 2 times as I had not heard from the patient or the nursing staff. The patient reported in the afternoon that she had been experiencing pain and increased blood pressures and did not want to go upstairs until that was under control. I did finally get a phone call at 1:30 in the morning stating the patient was ready for her exam. At that time, I had 2 patients requiring my attention up in Labor and Delivery and was unable to proceed with that evaluation. In reviewing her vital signs, blood pressures through the night have remained in the severe range with a blood pressure this morning being 173/78, temperature of 98.2, pulse of 60, respiratory rate of 18 saturating 97% on room air. We will attempt to obtain a biopsy today or tomorrow at the patient's convenience. Otherwise, the patient have a scheduled procedure with Dr. Hong for this purpose. Dr. Grullon will be coming on duty today and maybe able to proceed with this exam and attempt a biopsy. Otherwise, I will be returning tomorrow and will do so then. Job ID: [id number]
--- NOTE | 2018-08-01 14:43 | PDOC.PN ---
- Subjective Encounter Start Date: 08/01/18 Encounter Start Time: 14:42 Ms. Farley was seen earlier today and again now. She does not have any new complaints. She has returned from the attempt at a Endometrial Biopsy. She denies chest pain or difficulty breathing. - Objective Resuscitation Status - Order Detail: 07/29/18 19:49 Resuscitation Status Routine Resuscitation Status: FULL: Full Resuscitation MAR Reviewed: Yes Vital Signs & Weight: Vital Signs (12 hours) Temp Pulse Resp BP Pulse Ox 08/01/18 11:50 98.0 F 57 L 16 156/70 H 97 08/01/18 08:00 98.2 F 66 17 158/65 H 98 08/01/18 03:58 98.2 F 60 18 173/78 H 97 Weight Weight 239 lb I&O: 07/31/18 08/01/18 08/02/18 06:59 06:59 06:59 Intake Total 1380 960 Output Total 300 Balance 1380 660 Result Diagrams: 07/31/18 06:48 07/31/18 06:48 Phys Exam - Physical Examination HEENT: PERRLA Respiratory: no wheezing, no rales, no rhonchi, clear to auscultation bilateral Cardiovascular: RRR, no significant murmur, no rub Gastrointestinal: soft, non-tender, no distention, positive bowel sounds Musculoskeletal: no edema, pulses present Dx/Plan (1) Pulmonary emboli Code(s): I26.99 - OTHER PULMONARY EMBOLISM WITHOUT ACUTE COR PULMONALE Status : Acute (2) Endometrial cancer Code(s): C54.1 - MALIGNANT NEOPLASM OF ENDOMETRIUM Status: Acute (3) Tcvnf-fi-fggiifh kidney injury Code(s): N17.9 - ACUTE KIDNEY FAILURE, UNSPECIFIED; N18.9 - CHRONIC KIDNEY DISEASE, UNSPECIFIED Status: Acute (4) Hypertension Code(s): I10 - ESSENTIAL (PRIMARY) HYPERTENSION Status: Chronic - Plan * Pulmonary Embolus- re-start Lovenox now, and then will transition to Eliquis in the AM * Acute on chronic kidney injury- renal function has improved * HTN- blood pressure is better * Presumed Endometrial Cancer- unfortunately this is the third attempt at Endometrial biopsy which has been unsuccessful. She has a very anterior uterus and stenotic cervix. I spoke with the OB- Hospitalist and this will need to be done under general anesthesia. * Plan is to discharge home tomorrow on Eliquis, and follow-up at [facility]. I have explained the plan to the patient as well as her daughter and they agree.
[2018-08-01] MEDS: HYDROcodone/Acetaminophen 5/325 mg Tablet PO PRN ×2 (17:55→21:36)
[2018-08-02] MEDS: Enoxaparin Sodium 100 MG/ML SYRINGE SC SCH ×2 (02:51→08:41)
[2018-08-02 05:24] LABS: Hemoglobin 9.4 g/dL (12.0-16.0); Platelet Count 270 thou/uL (130-400)
[2018-08-02] MEDS: Senokot S 8.6-50 MG TAB PO SCH (08:41)
[2018-08-02] MEDS: CLONIDINE 0.1 MG TAB PO SCH (08:49)
[2018-08-02] MEDS: HYDROcodone/Acetaminophen 5/325 mg Tablet PO PRN ×2 (08:52→15:51)
--- NOTE | 2018-08-02 15:25 | DIS ---
DATE OF ADMISSION: 07/29/2018 DATE OF DISCHARGE: 08/02/2018 DISCHARGE DISPOSITION: Home. FOLLOWUP: 1. Follow up with primary care physician, Dr. Soares, in 1 week. 2. Follow up with Dr. Chan as directed. ALLERGIES: THE PATIENT IS ALLERGIC TO CODEINE. DISCHARGE MEDICATIONS: 1. Eliquis 10 mg twice daily for 1 week, then 5 mg twice a day. 2. All other home medications were left unchanged. The patient was seen and examined on the day of discharge. Denies any new complaints. No chest pain, shortness of breath, or palpitations. BRIEF HOSPITAL COURSE: The patient is a 63-year-old female with recent diagnosis of endometrial mass, presented to the hospital with generalized weakness and lightheadedness. Her workup in the emergency room was consistent with bilateral pulmonary emboli. She was started on anticoagulation with Lovenox that has been switched to Eliquis. An echocardiogram was done that showed left ventricular ejection fraction of 55% to 60% without right heart strain. Her troponin was negative. The patient was also found to have acute kidney injury with creatinine 1.84 with lactic acid of 2.5. This improved with IV hydration. Her creatinine on the day of discharge is 0.86. The CT scan of the abdomen and pelvis on admission showed endometrial mass along with bilateral ovarian cyst and cholelithiasis with contracted gallbladder. Right upper quadrant ultrasound was negative for cholecystitis. She was evaluated by RECORD TESTER hospitalist. Endometrial biopsy was attempted; however, this was unsuccessful. She will need endometrial biopsy under general anesthesia as outpatient. She has been cleared by consultants for discharge. The CT scan of the chest also showed numerous bilateral pulmonary nodules consistent with metastatic disease. She will follow up with [facility] as outpatient. FINAL DIAGNOSES: 1. Bilateral pulmonary embolism. 2. Endometrial mass with likely pulmonary metastasis. 3. Hypertension. 4. Acute kidney injury on chronic kidney disease stage 2. 5. Obesity with a BMI of 39.8. 6. Chronic anemia. 7. Recent diagnosis of urinary tract infection, completed antibiotics. 8. Cholelithiasis with contracted gallbladder. 9. Bilateral ovarian cyst. PLAN: Plan of care was discussed with the patient and the family in detail. They stated understanding. Job ID: [id number]
[2018-08-02] MEDS: CLONIDINE 0.1 MG TAB PO PRN (15:40)
[2018-08-02 15:55] VITALS: TEMP 97.8
[2018-08-02] MEDS: Polyethylene Glycol 3350 17 GM Packet PO SCH (15:57)
[2018-08-02 17:49] VITALS: BP 153/73
== END 2018-08-02 18:01 | disposition home or self-care (01) | DRG 682 ==
LOC: ERS 13:09 → 2NO 16:27
PROVIDERS: ADMIT Family Medicine; ATTEND Family Medicine
DX: N17.9 Acute kidney failure, unspecified (principal); I26.99 Other pulmonary embolism without acute cor pulmonale; N39.0 Urinary tract infection, site not specified; C78.00 Secondary malignant neoplasm of unspecified lung; F32.9 Major depressive disorder, single episode, unspecified; K80.20 Calculus of gallbladder without cholecystitis without obstruction; I12.9 Hypertensive chronic kidney disease with stage 1 through stage 4 chronic kidney disease, or unspecified chronic kidney disease; N18.2 Chronic kidney disease, stage 2 (mild); D63.1 Anemia in chronic kidney disease; K59.00 Constipation, unspecified; C54.1 Malignant neoplasm of endometrium; M19.90 Unspecified osteoarthritis, unspecified site; N83.202 Unspecified ovarian cyst, left side; N83.201 Unspecified ovarian cyst, right side; E66.9 Obesity, unspecified; Z90.49 Acquired absence of other specified parts of digestive tract; Z98.51 Tubal ligation status; Z88.5 Allergy status to narcotic agent; Z79.899 Other long term (current) drug therapy; Z68.39 Body mass index [BMI] 39.0-39.9, adult
CPT/HCPCS: 36415; 71275; 74177; 76705; 80048; 80053; 81003; 81015; 82565; 83605; 83690; 84484; 85014; 85018; 85025; 85049; 86850; 86900; 86901; 87077; 87086; 87186; 93005; 93306; 96361; 96365; 96367; 96372; J0360; J0696; J1650; J3370; J3490; Q9966

== ENCOUNTER 2018-08-31 21:48 | Inpatient (IN) | payer MEDICARE ==
--- NOTE | 2018-08-31 22:31 | RAD ---
XR Chest 1 View Portable History: Chest pain Comparison: Radiograph 2018. CT angiogram July 29, 2018 Findings: Innumerable masses throughout the chest. Heart size is normal. No significant pleural effus ion. Impression: Innumerable metastatic disease of the chest.
[2018-08-31 22:51] LABS: #Eosinphils 0.2 thou/uL (0.0-0.7); #Lymphocytes 2.5 thou/uL (1.20-3.40); #Monocytes 0.8 thou/uL (0.11-0.59); #Neutrophils 9.1 thou/uL (1.40-6.50); %Eosinophils 1.4 % (0.0-10.0); %Lymphocytes 19.5 % (21.0-51.0); %Monocytes 6.3 % (0.0-10.0); %Neutrophils 72.8 % (42.0-75.0); ALT (SGPT) 15 U/L (8-55); AST (SGOT) 23 U/L (5-34); Albumin 3.4 g/dL (3.4-4.8); Alkaline Phosphatase 191 U/L (40-150); Anion Gap 17 mmol/L (10-20); Anisocytosis SLIGHT = 6-15 cells (100X) (0-5/hpf); BUN (Urea Nitrogen) 17 mg/dL (9.8-20.1); Bilirubin, Total 0.3 mg/dL (0.2-1.2); Calc. Creatinine Clearance 0 mL/min (70-130); Carbon Dioxide 22 mmol/L (23-31); Chloride 100 mmol/L (98-107); Estimated GFR-MDRD 47; Globulin 3.7 g/dL (2.4-3.5); Glucose 114 mg/dL (80-115); Hemoglobin 9.4 g/dL (12.0-16.0); MDiff Complete? YES; Mean Corpuscular HGB CONC 31.8 g/dL (32.0-36.0); Mean Corpuscular Hemoglobin 23.8 pg (27.0-31.0); Mean Corpuscular Volume 74.9 fL (78.0-98.0); Mean Platelet Volume 8.3 fL (7.4-10.4); Microcytosis SLIGHT = 6-15 cells (100X) (0-5/hpf); Platelet Count 476 thou/uL (130-400); Potassium 4.5 mmol/L (3.5-5.1); Protein, Total 7.1 g/dL (6.0-8.3); RBC Distribution Width 15.2 % (11.5-14.5); Red Blood Cell (RBC) Count 3.94 mill/uL (4.20-5.40); Sodium 134 mmol/L (136-145); White Blood Cell (WBC) Count 12.5 thou/uL (4.8-10.8)
[2018-08-31] MEDS ORDERED: Morphine 10 MG/ML VIAL ONE (23:01)
[2018-08-31] MEDS ORDERED: Morphine 4 MG/ML VIAL ONE (23:48)
[2018-08-31] MEDS ORDERED: Ondansetron PF 4 MG/2 ML Vial ONE (23:48)
[2018-09-01] MEDS ORDERED: Promethazine HCl 25 MG/ML VIAL ONE (01:01)
[2018-09-01] MEDS ORDERED: Fentanyl 100 MCG/2 ML VIAL ONE (01:42)
[2018-09-01] MEDS ORDERED: Metoclopramide HCl 10 MG/2 ML VIAL ONE (03:04)
[2018-09-01] MEDS ORDERED: Ketorolac Tromethamine 30 MG/ML VIAL ONE (03:10)
[2018-09-01] MEDS ORDERED: Ondansetron ODT 4 MG TAB SL PRN (04:30)
[2018-09-01] MEDS ORDERED: Sodium Chloride 0.9% 1,000 ML IV SCH ×2 (04:30→06:15)
[2018-09-01] MEDS ORDERED: Ondansetron PF 4 MG/2 ML Vial IVP PRN ×2 (04:30→06:04)
[2018-09-01] MEDS ORDERED: Fentanyl 100 MCG/2 ML VIAL SLOW IVP PRN ×2 (04:31→06:04)
[2018-09-01] MEDS ORDERED: Promethazine HCl 25 MG/ML VIAL SLOW IVP PRN (06:06)
[2018-09-01] MEDS: Furosemide 20 MG TAB PO SCH ×2 (10:00→13:01)
[2018-09-01] MEDS: Apixaban 5 MG TAB PO SCH ×2 (10:00→13:01)
[2018-09-01] MEDS: CLONIDINE 0.1 MG TAB PO SCH ×3 (10:00→20:31)
[2018-09-01] MEDS: Fluticasone Propionate Nasal Spray 16 gm Bottle NASAL SCH ×2 (10:02→18:40)
[2018-09-01] MEDS ORDERED: Acetaminophen 500 MG TAB PO PRN (11:27)
[2018-09-01] MEDS ORDERED: hydrALAZINE 20 MG/ML VIAL SLOW IVP PRN (11:27)
[2018-09-01] MEDS ORDERED: Ondansetron ODT 4 MG TAB PO PRN (11:27)
[2018-09-01] MEDS: Dextrose 5 % And 0.9 % NaCl 1,000 ML IV SCH ×2 (12:16→21:40)
[2018-09-01] MEDS: fentaNYL 50 mcg/hour Patch TD SCH (12:56)
[2018-09-01] MEDS: Megestrol Acetate 40 MG TAB PO SCH ×3 (14:05→20:41)
[2018-09-01] MEDS ORDERED: Morphine 4 MG/ML VIAL SLOW IVP SCH (14:15)
--- NOTE | 2018-09-01 15:26 | HP ---
PRIMARY CARE PROVIDER: Freddy Burdick DO PRIMARY ONCOLOGIST: Shiloh Chan MD CHIEF COMPLAINT: Nausea and vomiting. HISTORY OF PRESENT ILLNESS: This is a 63-year-old female, who presents to [facility] Emergency Department complaining of persistent nausea and vomiting with associated chest pain. The patient's history is significant for metastatic endometrial carcinoma, pending initiation of chemotherapy after apparently undergoing a second endometrial biopsy at [facility] on 08/27/2018. The patient states she was also evaluated for persistent nausea and vomiting while at [facility], undergoing evaluation to include diagnosis of renal lithiasis. The patient was treated for urinary tract infection and given IV fluids and eventually released home on 08/28/2018. The patient stated she had persistent diffuse abdominal pain, general weakness with nausea and unable to hold down any of her medications or eat regular food. The patient also had multiple bouts of emesis causing chest pain. The patient states she is being evaluated and has followup appointment with her primary oncologist to discuss the results of the biopsy and planning for chemotherapy. In the emergency room, the patient underwent general evaluation including chest imaging showing diffuse metastatic process in the lungs. The patient received multiple medications to include Zofran, Toradol, Reglan, fentanyl, Phenergan, intravenous normal saline, and morphine sulfate. The patient was transferred to the Medical Oncology Unit for observation. PAST MEDICAL HISTORY: 1. Stage 4 endometrial carcinoma, pending initiation of chemotherapy. 2. Chronic back pain with three herniated disks. 3. History of endometriosis. 4. Hypertension. 5. Obesity. 6. Bilateral pulmonary embolus on Eliquis. PAST SURGICAL HISTORY: 1. Status post tonsillectomy. 2. Status post appendectomy. 3. Status post bilateral shoulder repair. 4. Status post bilateral tubal ligation. 5. Status post fistula repair. 6. Status post endometrial biopsy x2. CURRENT MEDICATIONS: 1. Eliquis 5 mg p.o. daily. 2. Clonidine 0.1 mg p.o. b.i.d. 3. Fentanyl patch 50 mcg transdermally q.72 hours. 4. Flonase 2 sprays in each naris daily. 5. Lasix 20 mg p.o. daily. 6. [place] 5/325 mg one tablet p.o. q.6 hours p.r.n. pain. ALLERGIES: TO RED DYE AND CODEINE. FAMILY HISTORY: Positive for cancer and coronary artery disease. SOCIAL HISTORY: The patient lives in the [place], [place] area. No current alcohol, tobacco, or illicit drug use. Functional of all activities of daily living. REVIEW OF SYSTEMS: CONSTITUTIONAL: Negative for weight loss or gain, ability to conduct usual activities. SKIN: Negative for rash, itching. EYES: Negative for double vision, pain. ENT/MOUTH: Negative for nose bleeding, neck stiffness, pain, tenderness. CARDIOVASCULAR: Negative for palpitations, dyspnea on exertion, orthopnea. RESPIRATORY: Negative for shortness of breath, wheezing, cough, hemoptysis, fever or night sweats. GASTROINTESTINAL: Negative for poor appetite, abdominal pain, heartburn, nausea, vomiting, constipation, or diarrhea. GENITOURINARY: Negative for urgency, frequency, dysuria, nocturia. MUSCULOSKELETAL: Negative for pain, swelling. NEUROLOGIC/PSYCHIATRIC: Negative for anxiety, depression. ALLERGY/IMMUNOLOGIC: Negative for skin rash, bleeding tendency. Otherwise, negative except as stated per HPI. PHYSICAL EXAMINATION: VITAL SIGNS: On admission; blood pressure 140/64, pulse 80, respiratory rate 18, temperature 98.2 degrees Fahrenheit, and O2 saturation 95% on room air. GENERAL APPEARANCE: This is a 63-year-old female, alert and responsive, in mild distress. HEENT: Pupils are equal, round, and reactive to light and accommodation. Extraocular muscles are intact. No scleral icterus. No conjunctival injection. Nares patent. OP is clear. Oral mucosa dry. NECK: Supple. No cervical adenopathy. No thyromegaly. No carotid bruits. No JVD appreciated. Cervical spine with full active and passive range of motion. No meningeal signs noted. CHEST: Lungs are clear to auscultation bilaterally. CARDIOVASCULAR: S1 and S2 without noted murmur, rub, or gallop. ABDOMEN: Obese with tenderness to palpation diffusely. No palpable mass. No rebound or guarding noted. EXTREMITIES: Warm and dry with fair turgor. No clubbing, cyanosis, or asymmetric edema appreciated. Pulses palpable distally at the dorsalis pedis, posterior tibial, and popliteal arteries bilaterally. Capillary refill less than 2 seconds. NEUROLOGIC: Cranial nerves 2 through 12 are grossly intact. No focal or lateralizing signs appreciated. PERTINENT LAB AND X-RAY FINDINGS: Sodium 134, potassium 4.5, chloride 100, CO2 of 22, BUN 17, creatinine 1.37, estimated GFR 47, glucose 114, calcium 10.0, and alkaline phosphatase 191. Troponin I negative x1. BNP 19. Albumin 3.4. CBC showed a white blood cell count 12.5, hemoglobin 9.4, hematocrit 30, MCV 75, and platelet count 476 with 73% neutrophils. Portable chest x-ray dated 08/31/2018 showed innumerable metastatic disease of the chest. EKG dated 08/31/2018 by my interpretation shows sinus mechanism with heart rates in the 80s. Normal R-wave progression noted in the precordial leads. Left axis deviation noted. No acute ST-T wave changes appreciated. ASSESSMENT AND PLAN: 1. Nausea and vomiting. Suspect multifactorial given the patient's stage 4 endometrial carcinoma. Continue IV fluids with D5 normal saline at 100 mL/h. Antiemetics with Zofran and Phenergan. Consider scopolamine patch for discharge. Clear liquids as tolerated. 2. Acute kidney injury. Suspect multifactorial including volume depletion. Avoid nephrotoxic agents and limit contrast exposure. Continue intravenous saline and repeat creatinine in the a.m.. 3. Endometrial carcinoma stage 4. We will continue supportive management including pain control. Consult Medical Oncology Service for any further recommendations. The patient pending initiation of chemotherapy. 4. Microcytic anemia. Appears chronic in nature. We will check iron studies, ferritin, reticulocyte count, and stool guaiacs. Repeat CBC in the a.m. 5. Bilateral pulmonary embolus. Continue Eliquis 5 mg p.o. daily. 6. Prophylaxis. Sequential compression devices while in bed. Pepcid 20 mg IV q.12 hours. 7. Code status is full. Surrogate medical decision maker is the patient's daughter. Job ID: [id number]
[2018-09-01 16:43] LABS: Bilirubin Negative (Negative); Blood, Urine Large (Negative); Clarity CLOUDY (Clear); Glucose, Urine (Dipstick) Negative (Negative); Leukocyte Moderate (Negative); Nitrite Negative (Negative); Protein, Urine (Dipstick) 30 mg/dL (Neg-Trace)
[2018-09-01 16:51] LABS: Bacteria/HPF None Seen HPF (None Seen); Hyaline Casts/LPF 4-6 HYALINE CAST LPF (0-3 Hyaline); Pathc Cast-AUWi Flag 1.08 (0-2.49); RBC/HPF GREATER THAN 50-TNTC HPF (0-3); WBC/HPF 21-50 HPF (0-3)
[2018-09-01 16:55] LABS: Renal Epithelial None Seen HPF (0-3); Transitional Epithelial NONE SEEN HPF (0-3)
[2018-09-01] MEDS ORDERED: Methyl Salicylate/Menthol 85 GM TUBE TOP PRN (17:58)
[2018-09-01] MEDS: Ketorolac Tromethamine 30 MG/ML VIAL IVP SCH ×2 (18:07→23:04)
[2018-09-01] MEDS: Famotidine/PF 20 mg/2ml Vial SLOW IVP SCH (20:09)
[2018-09-01] MEDS: cloNIDine 0.1 MG TAB PO SCH ×2 (20:09→21:00)
[2018-09-01] MEDS: Ondansetron PF 4 MG/2 ML Vial IVP PRN (20:13)
[2018-09-01] MEDS ORDERED: Promethazine HCl 25 MG in Sodium Chloride 0.9% 50 ML IVPB PRN (23:24)
[2018-09-02] MEDS: Morphine 4 MG/ML VIAL SLOW IVP PRN ×3 (03:53→23:39)
[2018-09-02] MEDS: Ketorolac Tromethamine 30 MG/ML VIAL IVP SCH ×3 (05:59→17:33)
[2018-09-02 06:12] LABS: Anisocytosis SLIGHT = 6-15 cells (100X) (0-5/hpf); Band 1 % (5-11); Eosinophils 3 % (0-10); Hemoglobin 8.4 g/dL (12.0-16.0); Lymphocytes 16 % (21-51); MDiff Complete? YES; Mean Corpuscular HGB CONC 31.9 g/dL (32.0-36.0); Mean Corpuscular Hemoglobin 24.1 pg (27.0-31.0); Mean Corpuscular Volume 75.5 fL (78.0-98.0); Mean Platelet Volume 8.2 fL (7.4-10.4); Microcytosis SLIGHT = 6-15 cells (100X) (0-5/hpf); Monocytes 7 % (0-10); Neutrophil 73 % (42-75); Platelet Count 407 thou/uL (130-400); Platelet Morphology Comment Appears Adequate; Polychromasia SLIGHT = 2-3 cells (100X) (0-2/hpf); RBC Distribution Width 15.3 % (11.5-14.5); Red Blood Cell (RBC) Count 3.47 mill/uL (4.20-5.40); White Blood Cell (WBC) Count 10.2 thou/uL (4.8-10.8)
[2018-09-02 06:17] LABS: Anion Gap 13 mmol/L (10-20); BUN (Urea Nitrogen) 14 mg/dL (9.8-20.1); Calc. Creatinine Clearance 96 mL/min (70-130); Calcium 9.4 mg/dL (7.8-10.44); Carbon Dioxide 20 mmol/L (23-31); Chloride 108 mmol/L (98-107); Estimated GFR-MDRD 73; Glucose 109 mg/dL (80-115); Iron 17 ug/dL (50-170); Iron Binding Capacity, Total 200 mcg/dL (265-497); Potassium 4.1 mmol/L (3.5-5.1); Sodium 137 mmol/L (136-145)
[2018-09-02] MEDS: Famotidine/PF 20 mg/2ml Vial SLOW IVP SCH ×2 (07:57→21:08)
[2018-09-02] MEDS: Megestrol Acetate 40 MG TAB PO SCH ×3 (08:00→21:08)
[2018-09-02] MEDS: cloNIDine 0.1 MG TAB PO SCH ×2 (08:00→09:16)
[2018-09-02] MEDS: Apixaban 5 MG TAB PO SCH (08:02)
[2018-09-02] MEDS: Dextrose 5 % And 0.9 % NaCl 1,000 ML IV SCH (09:12)
[2018-09-02] MEDS: Fluticasone Propionate Nasal Spray 16 gm Bottle NASAL SCH (09:13)
[2018-09-02] MEDS: CLONIDINE 0.1 MG TAB PO SCH ×2 (09:16→21:09)
[2018-09-02 13:22] VITALS: BMI 32.9
[2018-09-02] MEDS: Ondansetron PF 4 MG/2 ML Vial IVP PRN ×2 (16:07→23:41)
[2018-09-02] MEDS ORDERED: Iron Sucrose Complex 200 MG in Sodium Chloride 0.9% 250 ML 250 ML IVPB SCH (17:00)
--- NOTE | 2018-09-02 17:03 | PDOC.PN ---
- Subjective Encounter Start Date: 09/02/18 Encounter Start Time: 16:45 Subjective: f/u for N/V, ANGELA and metastatic endometrial carcinoma. Feels slightly -: better today but still nauseated intermittently. Tolerating small amount -: of liquid. - Objective Resuscitation Status - Order Detail: 09/01/18 11:21 Resuscitation Status Routine Resuscitation Status: FULL: Full Resuscitation MAR Reviewed: Yes Vital Signs & Weight: Vital Signs (12 hours) Temp Pulse Resp BP BP Pulse Ox 09/02/18 16:15 98.0 F 68 16 149/67 H 94 L 09/02/18 12:35 98.1 F 75 16 129/60 95 09/02/18 09:16 137/64 09/02/18 07:38 98.0 F 79 16 113/53 L 94 L Weight Admit Weight 217 lb 2.485 oz Weight 217 lb 2.485 oz I&O: 09/01/18 09/02/18 09/03/18 06:59 06:59 06:59 Intake Total 0 3603 1000 Balance 0 3603 1000 Result Diagrams: 09/02/18 05:37 09/02/18 05:37 Additional Labs: Laboratory Tests 08/31/18 08/31/18 09/02/18 22:19 22:19 05:37 WBC 12.5 H Hgb 9.4 L Plt Count 476 H Creatinine 1.37 H Iron 17 L TIBC 200 L Ferritin 09/02/18 05:37 WBC Hgb Plt Count Creatinine Iron TIBC Ferritin 215.18 Phys Exam - Physical Examination Constitutional: NAD HEENT: PERRLA, sclera anicteric, oral pharynx no lesions Neck: no nodes, no JVD, supple, full ROM Respiratory: no wheezing, no rales, no rhonchi, clear to auscultation bilateral S1, S2 Cardiovascular: RRR, no significant murmur, no rub, gallop mild TTP diffusely Gastrointestinal: soft, no distention, positive bowel sounds Musculoskeletal: no edema, pulses present Neurological: normal sensation, moves all 4 limbs Psychiatric: A&O x 3 Skin: normal turgor, cap refill <2 seconds Dx/Plan (1) Kvahs-hc-nzbmcfn kidney injury Code(s): N17.9 - ACUTE KIDNEY FAILURE, UNSPECIFIED; N18.9 - CHRONIC KIDNEY DISEASE, UNSPECIFIED Status: Acute Comment: Multifactorial including dehydration and iatrogenic, improving, continue IVF's, avoid nephrotoxic meds and limit contrast exposure (2) Nausea & vomiting Code(s): R11.2 - NAUSEA WITH VOMITING, UNSPECIFIED Status: Acute Comment: Multifactorial, antiemetics, add Scopolamine patch, IVF's, advance diet slowly (3) UTI (urinary tract infection) Status: Acute Comment: Suspected, Levaquin 500mg po daily, await Ucx results (4) Iron deficiency anemia Code(s): D50.9 - IRON DEFICIENCY ANEMIA, UNSPECIFIED Status: Chronic Comment : IV Iron infusion today, serial H/H monitoring (5) Endometrial cancer Code(s): C54.1 - MALIGNANT NEOPLASM OF ENDOMETRIUM Status: Acute Comment: Stage IV process, awaiting initiation of chemotherapy, pain control - Plan continue antibiotics, PT/OT, social services aide, out of bed/ambulate, DVT proph w/ SCDs Stable currently -: Add Scopolamine patch -: Continue IVF's D5NS -: IV Iron infusion today -: Convert to inpt status * AM lab: BMP, H/H
[2018-09-02] MEDS ORDERED: Iron, Sodium Ferric Gluconate 250 MG in Sodium Chloride 0.9% 100 ML IVPB SCH (17:15)
[2018-09-02] MEDS: Scopolamine 1.5 mg/72 hour Patch TD SCH (17:34)
[2018-09-02] MEDS: Dextrose 5 %-0.45 % NaCl 1,000 ML IV SCH (21:08)
[2018-09-03] MEDS: Ketorolac Tromethamine 30 MG/ML VIAL IVP SCH ×5 (01:17→23:14)
[2018-09-03] MEDS: Morphine 4 MG/ML VIAL SLOW IVP PRN ×5 (03:22→20:09)
[2018-09-03 06:11] LABS: Hemoglobin 8.7 g/dL (12.0-16.0); Platelet Count 454 thou/uL (130-400)
[2018-09-03 06:31] LABS: Anion Gap 13 mmol/L (10-20); BUN (Urea Nitrogen) 12 mg/dL (9.8-20.1); Calc. Creatinine Clearance 108 mL/min (70-130); Calcium 9.7 mg/dL (7.8-10.44); Carbon Dioxide 22 mmol/L (23-31); Chloride 106 mmol/L (98-107); Estimated GFR-MDRD 83; Glucose 86 mg/dL (80-115); Potassium 4.3 mmol/L (3.5-5.1); Sodium 137 mmol/L (136-145)
[2018-09-03] MEDS: Famotidine/PF 20 mg/2ml Vial SLOW IVP SCH ×2 (07:53→20:08)
[2018-09-03] MEDS: Megestrol Acetate 40 MG TAB PO SCH ×4 (07:54→20:22)
[2018-09-03] MEDS: Fluticasone Propionate Nasal Spray 16 gm Bottle NASAL SCH (07:54)
[2018-09-03] MEDS: Apixaban 5 MG TAB PO SCH (07:54)
[2018-09-03] MEDS: CLONIDINE 0.1 MG TAB PO SCH ×2 (07:57→20:22)
[2018-09-03] MEDS: Dextrose 5 %-0.45 % NaCl 1,000 ML IV SCH ×2 (10:51→20:46)
[2018-09-03] MEDS: Ondansetron PF 4 MG/2 ML Vial IVP PRN ×2 (12:42→20:27)
--- NOTE | 2018-09-03 17:45 | PDOC.PN ---
- Subjective Encounter Start Date: 09/03/18 Encounter Start Time: 17:30 Subjective: f/u for N/V, ANGELA, UTI with improved appetite. Some intermittent nausea -: and general body pain. - Objective Resuscitation Status - Order Detail: 09/01/18 11:21 Resuscitation Status Routine Resuscitation Status: FULL: Full Resuscitation MAR Reviewed: Yes Vital Signs & Weight: Vital Signs (12 hours) Temp Pulse Resp BP Pulse Ox 09/03/18 08:10 97.9 F 65 18 147/62 H 96 Weight Admit Weight 217 lb 2.485 oz Weight 217 lb 2.485 oz I&O: 09/02/18 09/03/18 09/04/18 06:59 06:59 06:59 Intake Total 3603 2520 1240 Output Total 75 Balance 3603 2520 1165 Result Diagrams: 09/03/18 05:55 09/03/18 05:55 Additional Labs: Laboratory Tests 08/31/18 08/31/18 09/02/18 22:19 22:19 05:37 WBC 12.5 H Hgb 9.4 L Plt Count 476 H Creatinine 1.37 H Iron 17 L TIBC 200 L Ferritin 09/02/18 05:37 WBC Hgb Plt Count Creatinine Iron TIBC Ferritin 215.18 Phys Exam - Physical Examination Constitutional: NAD HEENT: PERRLA, sclera anicteric, oral pharynx no lesions Neck: no nodes, no JVD, supple, full ROM Respiratory: no wheezing, no rales, no rhonchi, clear to auscultation bilateral S1, S2 Cardiovascular: RRR, no significant murmur, no rub, gallop Gastrointestinal: soft, non-tender, no distention, positive bowel sounds Musculoskeletal: no edema, pulses present Neurological: normal sensation, moves all 4 limbs Psychiatric: A&O x 3 Skin: normal turgor, cap refill <2 seconds Dx/Plan (1) [id number] kidney injury Code(s): N17.9 - ACUTE KIDNEY FAILURE, UNSPECIFIED; N18.9 - CHRONIC KIDNEY DISEASE, UNSPECIFIED Status: Acute Comment: Multifactorial including dehydration and iatrogenic, improving, continue IVF's, avoid nephrotoxic meds and limit contrast exposure, improved (2) Nausea & vomiting Code(s): R11.2 - NAUSEA WITH VOMITING, UNSPECIFIED Status: Acute Comment: Multifactorial, antiemetics, add Scopolamine patch, IVF's, advance diet slowly, improved (3) UTI (urinary tract infection) Status: Acute Comment: Suspected, Levaquin 500mg po daily, await Ucx results (4) Iron deficiency anemia Code(s): D50.9 - IRON DEFICIENCY ANEMIA, UNSPECIFIED Status: Chronic Comment : IV Iron infusion today, serial H/H monitoring (5) Endometrial cancer Code(s): C54.1 - MALIGNANT NEOPLASM OF ENDOMETRIUM Status: Acute Comment: Stage IV process, awaiting initiation of chemotherapy, pain control, Med Oncology consulted - Plan continue antibiotics, PT/OT, social worker aide, out of bed/ambulate, DVT proph w/ SCDs Stable currently -: Continue IVF's another 24h then d/c -: Continue Levaquin 500mg daily -: OOB/ambulate -: Likely home in 24-48h * .
[2018-09-04] MEDS: Morphine 4 MG/ML VIAL SLOW IVP PRN ×4 (00:06→12:02)
[2018-09-04] MEDS: Dextrose 5 %-0.45 % NaCl 1,000 ML IV SCH ×2 (00:11→20:47)
[2018-09-04] MEDS ORDERED: Milk Of Magnesia 30 ML UDCUP PO PRN (05:23)
[2018-09-04] MEDS ORDERED: Milk Of Magnesia 30 ML UDCUP PO SCH (05:30)
[2018-09-04] MEDS: Ondansetron PF 4 MG/2 ML Vial IVP PRN ×2 (05:54→17:30)
[2018-09-04] MEDS ORDERED: Fleet Enema 133 ML BOT FS SCH (06:00)
[2018-09-04] MEDS: Ketorolac Tromethamine 30 MG/ML VIAL IVP SCH ×4 (06:13→23:11)
[2018-09-04] MEDS: Docusate 100 MG CAP PO SCH (08:00)
[2018-09-04] MEDS: Apixaban 5 MG TAB PO SCH ×2 (08:00→20:48)
[2018-09-04] MEDS: CLONIDINE 0.1 MG TAB PO SCH ×2 (08:01→20:51)
[2018-09-04] MEDS: Fluticasone Propionate Nasal Spray 16 gm Bottle NASAL SCH (08:01)
[2018-09-04] MEDS: Famotidine/PF 20 mg/2ml Vial SLOW IVP SCH ×2 (08:01→20:50)
[2018-09-04] MEDS: Megestrol Acetate 40 MG TAB PO SCH ×3 (08:01→20:48)
[2018-09-04] MEDS: fentaNYL 50 mcg/hour Patch TD SCH (12:24)
--- NOTE | 2018-09-04 15:54 | PDOC.PN ---
- Subjective Encounter Start Date: 09/04/18 Encounter Start Time: 09:10 Subjective: f/u for metastatic endometrial carcinoma, generalized pain, N/V -: and ANGELA. Feeling better overall and tolerating po intake. - Objective Resuscitation Status - Order Detail: 09/01/18 11:21 Resuscitation Status Routine Resuscitation Status: FULL: Full Resuscitation MAR Reviewed: Yes Vital Signs & Weight: Vital Signs (12 hours) Temp Pulse Resp BP Pulse Ox 09/04/18 08:05 98.0 F 65 16 129/62 95 09/04/18 08:00 95 Weight Admit Weight 217 lb 2.485 oz Weight 217 lb 2.485 oz I&O: 09/03/18 09/04/18 09/05/18 06:59 06:59 06:59 Intake Total 2520 1240 Output Total 75 Balance 2520 1165 Result Diagrams: 09/03/18 05:55 09/03/18 05:55 Additional Labs: Laboratory Tests 08/31/18 08/31/18 09/02/18 22:19 22:19 05:37 WBC 12.5 H Hgb 9.4 L Plt Count 476 H Creatinine 1.37 H Iron 17 L TIBC 200 L Ferritin 09/02/18 05:37 WBC Hgb Plt Count Creatinine Iron TIBC Ferritin 215.18 Phys Exam - Physical Examination Constitutional: NAD HEENT: PERRLA, sclera anicteric, oral pharynx no lesions Neck: no nodes, no JVD, supple, full ROM Respiratory: no wheezing, no rales, no rhonchi, clear to auscultation bilateral Cardiovascular: RRR, no significant murmur, no rub, gallop Gastrointestinal: soft, non-tender, no distention, positive bowel sounds Musculoskeletal: no edema, pulses present Neurological: normal sensation, moves all 4 limbs Psychiatric: A&O x 3 Skin: normal turgor, cap refill <2 seconds Dx/Plan (1) [id number] kidney injury Code(s): N17.9 - ACUTE KIDNEY FAILURE, UNSPECIFIED; N18.9 - CHRONIC KIDNEY DISEASE, UNSPECIFIED Status: Acute Comment: Multifactorial including dehydration and iatrogenic, improving, continue IVF's, avoid nephrotoxic meds and limit contrast exposure, improved (2) Nausea & vomiting Code(s): R11.2 - NAUSEA WITH VOMITING, UNSPECIFIED Status: Acute Comment: Multifactorial, antiemetics, add Scopolamine patch, IVF's, advance diet slowly, improved (3) UTI (urinary tract infection) Status: Acute Comment: Suspected, Levaquin 500mg po daily, await Ucx results (4) Iron deficiency anemia Code(s): D50.9 - IRON DEFICIENCY ANEMIA, UNSPECIFIED Status: Chronic Comment : IV Iron infusion today, serial H/H monitoring (5) Endometrial cancer Code(s): C54.1 - MALIGNANT NEOPLASM OF ENDOMETRIUM Status: Acute Comment: Stage IV process, awaiting initiation of chemotherapy, pain control, Med Oncology consulted (6) Chronic anticoagulation Code(s): Z79.01 - FPC (CURRENT) USE OF ANTICOAGULANTS Status: Acute Comment: Resume Eliquis 5mg BID - Plan continue antibiotics, social service agency director, out of bed/ambulate, DVT proph w/SCDs Stable currently -: Medical oncology meeting today to discuss long range plan -: continue antiemetics prn -: OOB/ambulate -: Likely home this pm * .
--- NOTE | 2018-09-04 16:47 | CON ---
DATE OF CONSULTATION: 09/04/2018 HISTORY OF PRESENT ILLNESS: Ms. Farley is a 63-year-old female, who recently in the last few months has been diagnosed with metastatic uterine cancer. There has been a difficult time getting a diagnosis because of difficulty with a biopsy. She was initially seen at [facility] in early July, at which time biopsy was scheduled, but instead she presented to our facility with a pulmonary embolism and so biopsy was delayed. She was started on anticoagulants and referred back to [facility] for another biopsy. A biopsy of the endometrium was attempted in our facility at that time and was not successful. She had a bone biopsy at [facility], which was also nondiagnostic on August 15, 2018. She was rebiopsied 1 week ago and the biopsy report from that, pelvic lymph node showed high-grade epithelioid neoplasm with further immunohistochemistry stains pending. She presented here in this hospitalization with recurrent pain in the bones as well as in her pelvis. She also has had nausea and vomiting. She has improved as of today and was supposed to see me in the clinic, but is hopefully being discharged over the next several hours. Her pain is better, she states. Her nausea has also improved. She is drinking fluids and feels ready for discharge fairly soon. PAST MEDICAL HISTORY: 1. Recent diagnosis of stage IV carcinoma of the uterus, histopathology has been pending until this hospitalization, but this is likely a high-grade endometrial carcinoma or adenocarcinoma. 2. Chronic back pain with degenerative disk disease. 3. History of endometriosis. 4. Hypertension. 5. Obesity. 6. Bilateral pulmonary embolism, likely secondary to malignancy in July of 2018. CURRENT MEDICATIONS: 1. Tylenol p.r.n. 2. Eliquis 5 mg p.o. daily. 3. Colace 100 mg p.o. daily. 4. Pepcid 20 mg IV q.12 hours. 5. Duragesic 50 mcg transdermal q.3 days. 6. Fluticasone nasal spray. 7. Hydralazine 10 mg IV q.4 hours p.r.n. 8. Toradol 30 mg IV q.6 hours scheduled. 9. Levaquin 500 mg p.o. daily. 10. Milk of magnesia p.r.n. 11. Megace 40 mg p.o. t.i.d. 12. Morphine 4 mg IV q.4 hours p.r.n. 13. Zofran ODT 4 mg p.o. q.6 hours p.r.n. 14. Zofran 8 mg IV q.6 hours p.r.n. 15. Clonidine 0.1 mg p.o. b.i.d. p.r.n. 16. Phenergan 25 mg IV q.6 hours p.r.n. 17. Scopolamine patch. ALLERGIES: RED DYE AND CODEINE. SOCIAL HISTORY: She lives in [place] and has several children and grandchildren, who are all quite supportive. She denies tobacco or alcohol use. REVIEW OF SYSTEMS: Otherwise, 10-point review of systems is negative. PHYSICAL EXAMINATION: VITAL SIGNS: Temperature 98, pulse 65, respirations 16, O2 saturation 95% on room air, and blood pressure 129/62. GENERAL: She is alert, awake, and oriented x3, is in no acute distress. Pleasant. HEENT: Extraocular muscles are intact. Sclerae are anicteric. NECK: Supple without lymphadenopathy. CARDIOVASCULAR: Regular rhythm. LUNGS: Clear to auscultation bilaterally. ABDOMEN: Morbidly obese, soft, nontender, and nondistended. EXTREMITIES: No edema. No clubbing. No cyanosis. LABORATORY DATA: White blood cell count 10.2, hemoglobin 8.7, hematocrit 28, and platelets 454. Creatinine is normal at 0.84, but was elevated on admission at 1.37, ferritin 215, alkaline phosphatase 191. ASSESSMENT: Ms. Farley is a 63-year-old female with; 1. 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 2. Nausea and vomiting, recurrent, but resolved. 3. Pelvic and bone pain, stable on fentanyl. PLAN: 1. We have set her up for followup with me in the clinic in the next few days to hopefully initiate chemotherapy, I will further discuss the case with Dr. Hong at [facility]. 2. She is stable for discharge from my standpoint, as long as the primary team thinks that she is ready. 3. I would continue the fentanyl patch and antiemetics as an outpatient. 4. Continue Eliquis, this may need to be changed to b.i.d. dosing, and I will discuss this with the primary team as well. Job ID: [id number]
[2018-09-04] MEDS ORDERED: Temazepam 15 MG CAP PO SCH (21:00)
[2018-09-05] MEDS: Ketorolac Tromethamine 30 MG/ML VIAL IVP SCH ×2 (05:05→12:00)
[2018-09-05] MEDS: Famotidine/PF 20 mg/2ml Vial SLOW IVP SCH (08:27)
[2018-09-05] MEDS: Docusate 100 MG CAP PO SCH (08:33)
[2018-09-05] MEDS: Apixaban 5 MG TAB PO SCH (08:33)
[2018-09-05] MEDS: CLONIDINE 0.1 MG TAB PO SCH (08:34)
[2018-09-05] MEDS: Fluticasone Propionate Nasal Spray 16 gm Bottle NASAL SCH (08:34)
[2018-09-05] MEDS: Megestrol Acetate 40 MG TAB PO SCH ×2 (08:34→13:04)
[2018-09-05 09:41] VITALS: BP 142/70; TEMP 98.5
[2018-09-05] MEDS ORDERED: Ketorolac Tromethamine 60 MG/2 ML VIAL IM SCH (11:15)
[2018-09-05] MEDS: Scopolamine 1.5 mg/72 hour Patch TD SCH (11:58)
--- NOTE | 2018-09-06 02:21 | DIS ---
DATE OF ADMISSION: 09/01/2018 DATE OF DISCHARGE: 09/05/2018 DISCHARGE DIAGNOSES: 1. Acute on chronic kidney disease, improved. 2. Nausea and vomiting, resolving. 3. Urinary tract infection, organism not identified. 4. Iron-deficiency anemia, stable. 5. Stage IV endometrial cancer with pulmonary metastasis. 6. Chronic anticoagulation with Eliquis. 7. Pulmonary emboli. CONSULTATIONS: Dr. Chan with Medical Oncology Service. PERTINENT LABORATORY AND X-RAY FINDINGS: Creatinine ranged between 0.84 to 1.37. Estimated GFR ranged between 47 to 83. Serum iron level 17, TIBC 200, ferritin 215. Alkaline phosphatase 191. BNP 19. Albumin 3.4. CBC showed hemoglobin ranged between 8.4 to 9.4, MCV 76. Stool Hemoccult dated 09/04/2018, positive. Portable chest x-ray dated 08/31/2018, showed innumerable metastatic lesions in bilateral lung hicks. HOSPITAL COURSE: The patient was initially admitted after presenting with nausea and vomiting in the context of recent diagnosis of endometrial carcinoma with chest imaging confirming metastatic process to bilateral lung hicks. The patient was managed for nausea, vomiting, and acute kidney injury, likely due to poor oral intake and dehydration. The patient received intravenous saline as well as antiemetics for control of symptoms. The patient also was treated with scopolamine patch with excellent results. The patient was evaluated by the Medical Oncology Service due to the recent diagnosis of stage IV endometrial carcinoma with recommendations for outpatient followup to initiate chemotherapy. Overall, the patient did remain clinically stable during the hospital course, tolerating regular oral intake. The patient ambulates with a rolling walker and overall remained clinically stable. I have examined the patient's at time of discharge and discussed followup instructions. The patient verbalized understanding and agreement ready for discharge on 09/05/2018. DISCHARGE MEDICATIONS: 1. Clonidine 0.1 mg p.o. b.i.d. 2. Fentanyl patch 50 mcg transdermally q.72 hours. 3. Flonase 2 sprays inhaled daily. 4. Lasix 20 mg p.o. daily. 5. [place] 5/325 mg 1 tablet p.o. q.6 hours p.r.n. pain. 6. Eliquis 5 mg p.o. b.i.d. 7. Levaquin 500 mg p.o. daily x7 days. 8. Megace 40 mg p.o. t.i.d. 9. Zofran 4 mg ODT q.6 hours p.r.n. nausea and vomiting. 10. Scopolamine patch 1.5 mg transdermally q.72 hours. FOLLOWUP: The patient is to follow up with Dr. Shiloh Chan on 09/07/2018, at 10:30 am. The patient will follow up with her primary care provider, Dr. Garth Burdick and to call his office for appointment time and date. CONDITION ON DISCHARGE: Stable. ACTIVITY: Ad-tamiko. DIET: Regular. CODE STATUS: Full. DISPOSITION: Home on 09/05/2018. Job ID: [id number]
--- NOTE | 2018-09-07 12:38 | EKG ---
Test Reason : CP Blood Pressure : / mmHG Vent. Rate : 085 BPM Atrial Rate : 085 BPM P-R Int : 120 ms QRS Dur : 082 ms QT Int : 366 ms P-R-T Axes : 030 -09 022 degrees QTc Int : 435 ms Normal sinus rhythm Moderate voltage criteria for LVH, may be normal variant Borderline ECG Confirmed by TAJ LERNER ([id number]), story editor GEMMA WELLS ([id number]) on 09/07/2018 12:37:47 PM Referred By: Confirmed By:TAJ LERNER
== END 2018-09-05 13:26 | disposition home or self-care (01) | DRG 683 ==
LOC: ERS 21:48 → ONC 09-01 02:55 → OBSVTOIN 09-01 02:55
PROVIDERS: ADMIT Hospitalist; ATTEND Hospitalist
DX: N17.9 Acute kidney failure, unspecified (principal); N39.0 Urinary tract infection, site not specified; C54.1 Malignant neoplasm of endometrium; E66.9 Obesity, unspecified; N18.9 Chronic kidney disease, unspecified; D50.9 Iron deficiency anemia, unspecified; F32.9 Major depressive disorder, single episode, unspecified; E86.0 Dehydration; I12.9 Hypertensive chronic kidney disease with stage 1 through stage 4 chronic kidney disease, or unspecified chronic kidney disease; Z86.711 Personal history of pulmonary embolism; Z79.01 Long term (current) use of anticoagulants; Z98.51 Tubal ligation status; Z90.49 Acquired absence of other specified parts of digestive tract; Z79.899 Other long term (current) drug therapy; Z88.5 Allergy status to narcotic agent; Z68.32 Body mass index [BMI] 32.0-32.9, adult
CPT/HCPCS: 36415; 71045; 80048; 80053; 81001; 82274; 82728; 83540; 83550; 83880; 84484; 85007; 85014; 85018; 85025; 85027; 85046; 85049; 93005; 96361; 96365; 96375; 96376; J1885; J2270; J2405; J2550; J2765; J2916; J3010; J3490; Q0162; S0028; S0179

== ENCOUNTER 2018-09-06 06:07 | Inpatient (IN) | payer MEDICARE ==
[2018-09-06] MEDS ORDERED: Ketorolac Tromethamine 60 MG/2 ML VIAL ONE (06:29)
[2018-09-06] MEDS ORDERED: Ondansetron ODT 4 MG TAB ONE (06:29)
[2018-09-06 06:52] LABS: #Eosinphils 0.2 thou/uL (0.0-0.7); #Lymphocytes 2.5 thou/uL (1.20-3.40); #Monocytes 0.9 thou/uL (0.11-0.59); #Neutrophils 7.4 thou/uL (1.40-6.50); %Basophils 0.2 % (0.0-1.0); %Eosinophils 1.4 % (0.0-10.0); %Lymphocytes 23.2 % (21.0-51.0); %Monocytes 7.8 % (0.0-10.0); %Neutrophils 67.4 % (42.0-75.0); Hemoglobin 9.9 g/dL (12.0-16.0); Mean Corpuscular HGB CONC 31.9 g/dL (32.0-36.0); Mean Corpuscular Hemoglobin 23.6 pg (27.0-31.0); Mean Corpuscular Volume 73.9 fL (78.0-98.0); Mean Platelet Volume 8.3 fL (7.4-10.4); Platelet Count 414 thou/uL (130-400); Red Blood Cell (RBC) Count 4.18 mill/uL (4.20-5.40)
[2018-09-06 07:11] LABS: ALT (SGPT) 13 U/L (8-55); AST (SGOT) 15 U/L (5-34); Albumin 3.1 g/dL (3.4-4.8); Alkaline Phosphatase 186 U/L (40-150); Anion Gap 19 mmol/L (10-20); BUN (Urea Nitrogen) 13 mg/dL (9.8-20.1); Bilirubin, Total 0.6 mg/dL (0.2-1.2); Calc. Creatinine Clearance 0 mL/min (70-130); Calcium 9.9 mg/dL (7.8-10.44); Carbon Dioxide 19 mmol/L (23-31); Chloride 100 mmol/L (98-107); Estimated GFR-MDRD 78; Glucose 81 mg/dL (80-115); Potassium 4.3 mmol/L (3.5-5.1); Protein, Total 7.1 g/dL (6.0-8.3); Sodium 134 mmol/L (136-145)
[2018-09-06 07:31] LABS: Hypochromia SLIGHT = 6-15 cells (100X) (0-5/hpf); MDiff Complete? YES; Microcytosis SLIGHT = 6-15 cells (100X) (0-5/hpf); Platelet Morphology Comment Appears Increased; Polychromasia SLIGHT = 2-3 cells (100X) (0-2/hpf)
--- NOTE | 2018-09-06 08:00 | RAD ---
EXAM: Single view of the chest HISTORY: Abdominal pain COMPARISON: 08/31/2018 FINDINGS: Single view of the chest shows a normal sized cardiomediastinal silhouette. Innumerable ma sslike opacities are again seen throughout the chest. There appears to be a small right pleural effusion. The bones are unremarkable. IMPRESSION: Stable exam
[2018-09-06] MEDS ORDERED: Morphine 4 MG/ML VIAL ONE (08:13)
[2018-09-06] MEDS ORDERED: Ondansetron PF 4 MG/2 ML Vial ONE (08:14)
[2018-09-06] MEDS ORDERED: Ondansetron PF 4 MG/2 ML Vial IVP PRN (09:49)
[2018-09-06] MEDS ORDERED: HYDROcodone/Acetaminophen 5/325 mg Tablet PO PRN ×2 (09:49)
[2018-09-06] MEDS ORDERED: Metoclopramide HCl 10 MG/2 ML VIAL IVP PRN (09:53)
[2018-09-06] MEDS ORDERED: Promethazine HCl 25 MG/ML VIAL IM/IV PRN (09:53)
[2018-09-06] MEDS ORDERED: Morphine 4 MG/ML VIAL SLOW IVP PRN (09:53)
[2018-09-06] MEDS ORDERED: fentaNYL 50 mcg/hour Patch TD SCH (10:00)
[2018-09-06] MEDS ORDERED: Scopolamine 1.5 mg/72 hour Patch TD SCH (10:00)
[2018-09-06] MEDS ORDERED: Sodium Chloride 0.9% 1,000 ML IV SCH (10:00)
[2018-09-06] MEDS ORDERED: hydrALAZINE 20 MG/ML VIAL SLOW IVP PRN (10:04)
--- NOTE | 2018-09-06 10:47 | HP ---
CHIEF COMPLAINT: Nausea, vomiting. PRIMARY CARE PROVIDER: Dr. Burdick HISTORY OF PRESENT ILLNESS: This is a 63-year-old female, who was hospitalized from September 01 through yesterday for acute on chronic kidney disease, nausea and vomiting in the context of stage IV endometrial cancer with metastasis, who presents back to the emergency room with a complaint of persistent nausea, vomiting, abdominal pain. The patient reports that soon after returning home approximately at 1 p.m. yesterday the symptoms worsened. She has been unable to keep anything down and therefore unable to take her medications. She also reports overnight the onset of vaginal bleeding that is described as heavy, requiring more than a few pads. She complains of a headache today, chills. She denies any chest pain, difficulty breathing, or coughing. In the emergency room, the patient received morphine 4 mg IV, Zofran 4 mg IV, Zofran 4 mg sublingual, 1 L of normal saline, and Toradol 60 mg intramuscular, and hospitalist called for admission. PAST MEDICAL HISTORY: Reviewed and confirmed from her admission on 09/01. 1. Stage IV endometrial carcinoma, has not yet received chemotherapy. 2. Chronic back pain with herniated disk. 3. Endometriosis. 4. Hypertension. 5. Obesity. 6. Bilateral PE on Eliquis. PAST SURGICAL HISTORY: 1. Tonsillectomy. 2. Appendectomy. 3. Bilateral shoulder repair. 4. Bilateral tubal ligation. 5. Fistula repair. 6. Endometrial biopsy. CURRENT MEDICATIONS: Reconciled with her discharge summary, although the patient has not taken them since her discharge. 1. Clonidine 0.1 mg p.o. b.i.d. 2. Fentanyl patch 50 mcg transdermal every 72 hours. 3. Flonase 2 sprays each nostril daily. 4. Lasix 20 mg daily. 5. Irwin 5/325 one tablet every 6 hours as needed. 6. Eliquis 5 mg b.i.d. 7. Levaquin 500 mg daily with a plan for 7 days. 8. Megace 40 mg t.i.d. 9. Zofran 4 mg oral dissolving every 6 hours as needed. 10. Scopolamine patch 1.5 mg transdermal. REVIEW OF SYSTEMS: As noted above is positive for headache and chills, negative for chest pain, difficulty breathing and cough. All remaining review of systems are reviewed and negative. FAMILY HISTORY: Significant for cancer and coronary artery disease. ALLERGIES: RED DYE AND CODEINE. SOCIAL HISTORY: The patient lives in [place], denies alcohol or tobacco. Her surrogate decision maker is her daughter and her code status is full. PHYSICAL EXAMINATION: VITAL SIGNS: Her blood pressure is 138/76, pulse is 80, respirations are 18, saturations are 96% on room air, temperature is 98.9. GENERAL: She is awake and alert. She appears uncomfortable. She is not in extreme distress. HEENT: Her pupils are equal and round. Oral mucosa is pink, appears dry. NECK: Supple, nontender. LYMPHATICS: No palpable cervical or supraclavicular lymphadenopathy. LUNGS: Clear to auscultation. No audible wheezing, rhonchi, or rales. HEART: Normal S1 and S2. Regular rate and rhythm. No audible murmurs. There are no significant murmurs. ABDOMEN: Soft. Tenderness to palpation with mild palpation throughout. No rebound or guarding. Present bowel sounds. EXTREMITIES: No clubbing, cyanosis, or edema. NEURO: No focal deficits. PSYCH: The patient is euthymic. Alert and oriented x4. SKIN: No visible rashes. KAUFFMAN FINDINGS AND TEST RESULTS: CBC; 11, 9.9, 30.9, 414. Chemistry; 134, 4.3, 100, 19, 0.89, 81. LFTs notable for an alkaline phosphatase of 186 and an albumin of 3.1. IMAGING STUDIES: Chest x-ray personally reviewed shows innumerable mass-like opacities with a small right pleural effusion. IMPRESSION: 1. Intractable nausea, vomiting, and abdominal pain secondary to metastatic stage IV endometrial carcinoma. 2. Dehydration secondary to above. 3. Vaginal bleeding secondary to endometrial carcinoma. 4. Bilateral pulmonary embolism on full anticoagulation, although missed doses secondary to no p.o. intake. 5. Anemia, chronic and stable. 6. Mild leukocytosis. 7. Hypoalbuminemia. 8. Mild metabolic acidosis. PLAN: 1. Admission to the hospital. 2. Consultation with Oncology for recommendations given the readmission. 3. Consultation with LIBRARY HELPER for the vaginal bleeding and holding her home Eliquis. 4. Continuing the antibiotics that were initiated with her last discharge, we will order them IV. 5. Managing pain. We will continue the fentanyl patch, use morphine and Irwin as needed. 6. Managing the nausea with Zofran, Phenergan, and Reglan as needed and continuing the scopolamine patch. 7. Holding her home clonidine now. We will monitor her blood pressures and use as needed medication. 8. Anticipated length of stay is 3 to 4 days, will be based on response to therapy and the ability to find medications that work for her. 9. Continuing IV fluids. 10. DVT prophylaxis, on hold for now because of the vaginal bleeding and concern that the leg squeezers may cause increasing discomfort. 11. GI prophylaxis. We will use IV famotidine. 12. Palliative care consult. 13. Code status is full. Surrogate decision maker is her daughter. 14. The patient is at high risk given age, comorbidities, severity of disease and current presentation. 15. Reviewed the plan of care with the patient and her daughter. No questions or further needs at the end of evaluation. Job ID: [id number] MTDD
--- NOTE | 2018-09-06 11:08 | PDOC.EVN ---
Event Note - Event Note Event Note: OBGYN 09/06/18 Requested Animal Researcher Consult by Dr Snow Reason for consult: Stage IV endometrial CA with Vag Bleed on anticoagulation (Admitted by Dr Snow) Discussed with ER provider on the phone and care reviewed. She is being admitted for nausea/vomiting. Her HCT is 30. She requires Animal Researcher Onc care and we do not have GynOnc on staff. All palliative care should be with Animal Researcher Onc. Transfer is in process already. She has been seen by Dr Chan. No Animal Researcher consult required at this time. Being transferred.
--- NOTE | 2018-09-06 11:24 | CON ---
DATE OF CONSULTATION: REASON FOR CONSULT: Uterine cancer. HISTORY OF PRESENT ILLNESS: Ms. Farley is a 63-year-old female, who was recently diagnosed with metastatic uterine cancer. She was initially seen at [facility] in early July and a biopsy was scheduled. Prior to the biopsy, she presented to our facility with pulmonary embolism. She was started on anticoagulation and referred back to [facility]. She had a bone biopsy performed, which was nondiagnostic. She was re-biopsied one week later and that biopsy report showed high-grade epithelioid neoplasm. She presented to this facility on August 31 for intractable pain, nausea, and vomiting. She actually was discharged home in stable condition yesterday. Unfortunately, her nausea came back. She was unable to take pain medicine, so she once again presented here for evaluation. She has been having a large amount of vaginal bleeding over the past several hours. She has been able to eat or drink fluids. She has been given a dose of narcotic pain medicine with improvement in her pain. PAST MEDICAL HISTORY: 1. Stage 4 uterine carcinoma consistent with MMMT. 2. Intractable nausea and vomiting. 3. Chronic back pain with degenerative disk disease. 4. History of endometriosis. 5. Hypertension. 6. Obesity. 7. Bilateral pulmonary embolism on anticoagulation. ALLERGIES: TO DYE AND CODEINE. HOME MEDICATIONS: 1. Clonidine 0.1 mg b.i.d. 2. Fentanyl patch 50 mcg. 3. Flonase daily. 4. Lasix 20 mg daily. 5. Eliquis 5 mg b.i.d. 6. Levaquin daily. 7. Megace 40 mg t.i.d. 8. Zofran p.r.n. 9. Scopolamine patch q.3 days. 10. Restoril p.r.n. FAMILY HISTORY: Noncontributory. SOCIAL HISTORY: Lives in [place] with her daughter. No alcohol, tobacco, or illicit drug use. REVIEW OF SYSTEMS: A 10-point review of systems is negative except for noted in HPI. PHYSICAL EXAMINATION: VITAL SIGNS: The patient is afebrile. Vital signs, per ER record. GENERAL: Well-developed, well-nourished female. She is in no acute distress. HEENT: Normocephalic and atraumatic. NECK: Supple. CV: Regular rate and rhythm. LUNGS: Clear bilaterally. ABDOMEN: Obese and nontender. Bowel sounds are positive. EXTREMITIES: No clubbing, cyanosis, or edema. SKIN: No rash. HEMATOLOGIC: No petechiae or purpura. NEUROLOGIC: Nonfocal. She is alert and oriented. PERTINENT LABS AND X-RAYS: Current WBCs are 11, hemoglobin 9.9, hematocrit 30.9 , and platelet count 414,000. She has 67% neutrophils and 23% lymphocytes. Sodium is 134, potassium is 4.3, chloride is 100, CO2 is 19, BUN is 13, creatinine is 0.89 , calcium is 9.9, bilirubin is 0.6, AST is 15, ALT is 13, alkaline phosphatase is 186, serum total protein is 7.1, albumin is 3.1, and globulin is 4.0. Chest x-ray is normal. ASSESSMENT: 1. Metastatic uterine cancer with lung and bone metastases. 2. Vaginal bleeding secondary to tumor and anticoagulation. 3. History of bilateral pulmonary embolism. 4. Pelvic and bone pain. DISCUSSION: The patient has new vaginal bleeding with intractable abdominal and back pain. She sees Dr. Hong with Production Lapping Machine Operator Onc surgery at [facility]. We will attempt to transfer to their facility for surgical consult. Continue pain medications and antiemetics. Thank you for the consult. Job ID: [id number] MTDD
[2018-09-06] MEDS ORDERED: Famotidine/PF 20 mg/2ml Vial SLOW IVP SCH (21:00)
--- NOTE | 2018-09-07 05:22 | DIS ---
DATE OF ADMISSION: 09/06/2018 DATE OF DISCHARGE: 09/06/2018 Transfer to [facility] for higher level of care to include Manager Language Oncology. MEDICATIONS RECONCILED AT DISCHARGE: 1. Peyton 5/325 one or two tablets every 4 hours as needed. 2. Levaquin 500 mg IV q.24 hours. The plan from discharge yesterday was when patient went home from her last admission for 7-day course. 3. Reglan 10 mg q.6 hours p.r.n. nausea. 4. Morphine 2 or 4 mg IV q.4 hours p.r.n. for pain. 5. Zofran 4 mg IV q.6 hours p.r.n. nausea. 6. Scopolamine patch 1.5 mg every 3 days. 7. Normal saline 75 mL an hour. 8. Fentanyl patch 50 mcg every 3 days, which patient currently has on. HOME MEDICINES: Discontinued. HISTORY OF PRESENT ILLNESS: Ms. Farley is a 63-year-old female with endometrial cancer metastatic to the lungs, who was hospitalized here from the through the 05 of September for intractable nausea, vomiting, and abdominal pain. She was discharged from our facility yesterday and within an hour, developed return of the same symptoms. She re-presented to the emergency room and hospitalist called for admission. HOSPITAL COURSE: The patient was seen in the emergency room and both Oncology and Gynecology were consulted due to the intractable symptoms, as well as new onset vaginal bleeding. The recommendations from both are transfer to [facility]. This was initiated and improved. The patient has been hemodynamically normal. She has received medicine for both pain and nausea by IV, and she does agree with transfer. Because of the vaginal bleeding, the patient has not been on Eliquis here, and she was unable to tolerate her medications at home, so she missed at least two doses of this. Upton findings and test results here. CBC 11.0, 9.9, 30.9, 414. Renal panel 134, 4.3, 119, 13, 0.89, 81. LFTs; T bilirubin 0.6, AST 15, ALT 13, alkaline phosphatase 186, total protein 7.1, albumin 3.1. Chest x-ray performed today shows stable exam, innumerable masslike opacities throughout the chest and a small right pleural effusion. FINAL DIAGNOSES: 1. 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 2. Vaginal bleeding secondary to endometrial cancer. 3. Urinary tract infection on last admission to this hospitalization. 4. Iron deficiency anemia. 5. Bilateral pulmonary embolism on chronic anticoagulation with Eliquis. 6. Hypertension. 7. Chronic back pain. DIET: The patient is n.p.o. now just due to her symptoms. TIME SPENT: Total time coordinating discharge is less than 30 minutes. Job ID: [id number] MTDD
--- NOTE | 2018-09-07 08:49 | EKG ---
Test Reason : Blood Pressure : / mmHG Vent. Rate : 081 BPM Atrial Rate : 081 BPM P-R Int : 138 ms QRS Dur : 070 ms QT Int : 358 ms P-R-T Axes : 049 010 029 degrees QTc Int : 415 ms Normal sinus rhythm Normal ECG Confirmed by FLAVIA XIAO MD ([id number]), managing editor GEMMA WELLS ([id number]) on 09/07/2018 8:42:34 AM Also confirmed by FLAVIA XIAO MD ([id number]), managing editor GEMMA WELLS ([id number]) on 09/07/2018 8:49:14 AM Referred By: ARMIN Confirmed By:FLAVIA XIAO MD
== END 2018-09-06 13:52 | disposition short-term general hospital (02) | DRG 755 ==
LOC: ERS 06:07 → ERHOLD 07:44
PROVIDERS: ADMIT Family Medicine; ATTEND Family Medicine
DX: C54.1 Malignant neoplasm of endometrium (principal); C78.00 Secondary malignant neoplasm of unspecified lung; C79.51 Secondary malignant neoplasm of bone; E87.2 Acidosis; N93.8 Other specified abnormal uterine and vaginal bleeding; G89.3 Neoplasm related pain (acute) (chronic); I10 Essential (primary) hypertension; E66.9 Obesity, unspecified; E86.0 Dehydration; D64.9 Anemia, unspecified; E88.09 Other disorders of plasma-protein metabolism, not elsewhere classified; Z88.5 Allergy status to narcotic agent; Z79.899 Other long term (current) drug therapy; Z79.01 Long term (current) use of anticoagulants; Z86.711 Personal history of pulmonary embolism; Z90.49 Acquired absence of other specified parts of digestive tract; Z98.51 Tubal ligation status
CPT/HCPCS: 36415; 71045; 80053; 85025; 93005; 96361; 96372; 96374; 96375; J1885; J2270; J2405; Q0162

== ENCOUNTER 2018-09-15 19:58 | Inpatient (IN) | payer MEDICARE ==
[2018-09-15 22:30] LABS: PTT 34.4 SEC (22.9-36.1); Prothrombin Time 22.2 SEC (12.0-14.7)
[2018-09-15 22:42] LABS: #Eosinphils 0.1 thou/uL (0.0-0.7); #Lymphocytes 2.1 thou/uL (1.20-3.40); #Monocytes 0.8 thou/uL (0.11-0.59); #Neutrophils 7.9 thou/uL (1.40-6.50); %Eosinophils 1.2 % (0.0-10.0); %Lymphocytes 18.8 % (21.0-51.0); %Monocytes 7.6 % (0.0-10.0); %Neutrophils 72.4 % (42.0-75.0); Anisocytosis SLIGHT = 6-15 cells (100X) (0-5/hpf); Hemoglobin 9.3 g/dL (12.0-16.0); MDiff Complete? YES; Mean Corpuscular HGB CONC 31.7 g/dL (32.0-36.0); Mean Corpuscular Hemoglobin 23.5 pg (27.0-31.0); Mean Platelet Volume 8.4 fL (7.4-10.4); Platelet Count 420 thou/uL (130-400); Platelet Morphology Comment Appears Increased; RBC Distribution Width 17.4 % (11.5-14.5); Red Blood Cell (RBC) Count 3.97 mill/uL (4.20-5.40); White Blood Cell (WBC) Count 10.9 thou/uL (4.8-10.8)
[2018-09-15 22:46] LABS: ALT (SGPT) 11 U/L (8-55); AST (SGOT) 14 U/L (5-34); Albumin 3.2 g/dL (3.4-4.8); Alkaline Phosphatase 127 U/L (40-150); Anion Gap 17 mmol/L (10-20); BUN (Urea Nitrogen) 12 mg/dL (9.8-20.1); Bilirubin, Total 0.4 mg/dL (0.2-1.2); Calc. Creatinine Clearance 0 mL/min (70-130); Calcium 8.6 mg/dL (7.8-10.44); Carbon Dioxide 21 mmol/L (23-31); Chloride 102 mmol/L (98-107); Estimated GFR-MDRD Greater than 90; Globulin 3.9 g/dL (2.4-3.5); Glucose 105 mg/dL (80-115); Potassium 4.6 mmol/L (3.5-5.1); Protein, Total 7.1 g/dL (6.0-8.3); Sodium 135 mmol/L (136-145)
[2018-09-15] MEDS ORDERED: Lorazepam 2 MG/ML VIAL ONE (23:18)
[2018-09-15] MEDS ORDERED: Fentanyl 100 MCG/2 ML VIAL ONE (23:54)
[2018-09-16] MEDS ORDERED: Sodium Chloride 0.9% 1,000 ML IV SCH (02:30)
[2018-09-16 02:52] VITALS: BMI 34.3
[2018-09-16] MEDS ORDERED: Morphine IR Tab 15 MG TAB PO SCH (03:45)
[2018-09-16] MEDS ORDERED: Bisacodyl 10 MG SUPP PR PRN (04:49)
[2018-09-16] MEDS ORDERED: Polyethylene Glycol 3350 17 GM Packet PO PRN (04:49)
[2018-09-16 05:05] LABS: Hemoglobin 9.1 g/dL (12.0-16.0); Platelet Count 415 thou/uL (130-400)
[2018-09-16 05:18] LABS: Troponin I 0.018 ng/mL (< 0.028)
[2018-09-16] MEDS ORDERED: Ondansetron ODT 4 MG TAB PO PRN (05:43)
[2018-09-16] MEDS ORDERED: Ondansetron PF 4 MG/2 ML Vial IVP PRN (05:43)
[2018-09-16 07:04] LABS: Troponin I Less than 0.010 ng/mL (< 0.028)
[2018-09-16] MEDS ORDERED: OLANZapine 2.5 MG TAB PO PRN (08:20)
[2018-09-16] MEDS ORDERED: hydrALAZINE 20 MG/ML VIAL SLOW IVP PRN (08:20)
[2018-09-16] MEDS ORDERED: Acetaminophen 325 MG TAB PO PRN (08:20)
[2018-09-16] MEDS ORDERED: Hyoscyamine Sulfate SL 0.125 mg Tablet SL PRN (09:00)
[2018-09-16] MEDS ORDERED: Senokot S 8.6-50 MG TAB PO SCH (09:00)
--- NOTE | 2018-09-16 09:00 | HP ---
PRIMARY CARE PHYSICIAN: Freddy Burdick DO CHIEF COMPLAINT: Shortness of breath. HISTORY OF PRESENT ILLNESS: Ms. Farley is a pleasant 63-year-old female, who has a history of metastatic endometrial cancer. She was recently treated in our facility for a diagnosis of pulmonary embolism. She has since been treated at [facility]. She tells me she did finally get the biopsy performed and was in the process of being scheduled to start chemotherapy; however, she has not started this yet. She says that she had made a back home and then says that suddenly she got really hot and then started feeling like she could not catch her breath. She said this started over the past 3 days. She says she may have had a little bit of a wheeze, and she does admit to an occasional cough with some white to green phlegm. She also notes that she has felt a bit feverish off and on as well, and because of these symptoms, she came to the ER for evaluation. She has been admitted for further treatment. REVIEW OF SYSTEMS: CONSTITUTIONAL: The patient admits to some subjective fever, but no chills. No night sweats. No weight loss. HEENT: No headaches. No dizziness. No visual changes. No sore throat, rhinorrhea, or neck pain. No adenopathy. PULMONARY: As the history of present illness. She denies any hemoptysis. CARDIOVASCULAR: She does admit to some pain, little bit on the left side, but as well as some dyspnea, but no PND, no orthopnea, no lower extremity edema. GASTROINTESTINAL: No abdominal pain. No nausea. No vomiting. No change in bowels. GENITOURINARY: No urinary frequency or hematuria. No hesitancy. NEUROLOGIC: No focal weakness or numbness. No seizures. PSYCHIATRIC: No symptoms of anxiety or depression. SKIN AND INTEGUMENT: No skin changes. No rash. ENDOCRINE: No heat or cold intolerance. PAST MEDICAL HISTORY: Significant for endometrial carcinoma, chronic low back pain, hypertension, obesity, pulmonary embolism, and metastatic endometrial cancer. PAST SURGICAL HISTORY: She has had a tonsillectomy, appendectomy, bilateral shoulder repair, bilateral tubal ligation, fistula repair, and endometrial biopsy. ALLERGIES: TO RED DYE AND CODEINE. SOCIAL HISTORY: She resides in [place]. She is a full code. She is a nonsmoker and nondrinker. Her daughter is her surrogate decision maker. FAMILY HISTORY: Significant for cancer and heart disease. CURRENT MEDICATIONS: Include, 1. Eliquis 5 mg twice daily. 2. Calcium plus vitamin D 1 tablet daily. 3. Clonidine 0.1 mg twice daily. 4. Flonase nasal spray daily. 5. Anaspaz or hyoscyamine 0.125 mg q.4 p.r.n. 6. Reglan 10 mg q.6 as needed. 7. Mirtazapine 15 mg at bedtime. 8. Morphine immediate release 15 mg q.4 as needed as well as morphine sulfate or MS Contin 60 mg twice daily. 9. Olanzapine 2.5 mg t.i.d. 10. Zofran 4 mg sublingual p.r.n. 11. Senna 4 mg twice daily. 12. Flomax 0.4 mg daily. PHYSICAL EXAMINATION: GENERAL: She is alert and oriented. She appears to be in no acute distress. She is well developed and well nourished. VITAL SIGNS: Blood pressure is 133/64, heart rate is 94, respiratory rate of 22, temperature is 99.7. HEENT: Pupils are equal, round, and reactive to light. Extraocular muscles are intact. Her sclerae are anicteric. Throat, there is no erythema, no exudates. NECK: No adenopathy. No bruits. LUNGS: She has some rales in the left side, very faint in the upper lobe area. No rhonchi. CARDIOVASCULAR: She has normal S1 and S2. There is no S3 or S4. No murmurs, clicks, or rubs. ABDOMEN: Obese, soft, nontender, and nondistended. Positive for bowel sounds. She did have some mild pelvic tenderness. EXTREMITIES: There is no edema. No calf tenderness. NEUROLOGIC: Her cranial nerves 2 through 12 are intact. Her muscle strength is 5/5 in both her upper and lower extremities. SKIN AND INTEGUMENT: There are no skin changes. No rash. LABORATORY RESULTS: The white blood cell count is 10.9, hemoglobin is 9.3, hematocrit is 29.4, and platelet count is 420. INR is 2.0. Sodium is 135, potassium is 4.6, chloride is 102, CO2 is 21, BUN of 12, creatinine is 0.69, glucose is 105. Troponin is less than 0.010. ASSESSMENT: 1. This is a pleasant 63-year-old female, who presents with a sensation of dyspnea. She did have some rales on exam in the area where she is complaining of some chest discomfort. She has been in and out of the hospital. Therefore, she is at risk for potential hospital-acquired pneumonia. I do not see a chest x-ray. Therefore, we will go ahead and get an x-ray of her chest to rule out infiltrate, and obtain blood cultures as well as sputum if she is able to produce this. We will also get an echocardiogram to see if there is any new wall motion abnormality as compared to her previous echo a few months ago. It is unlikely that this is pulmonary embolism and that she is already on treatment for this. 2. Endometrial cancer. This is being followed, she says locally, by Dr. Chan. 3. Hypertension. Currently, her blood pressure is controlled. We will restart and reconcile her home medications and p.r.n. medicines as needed. 4. Pulmonary embolism. We will continue Eliquis and given her current status with regard to her metastatic cancer, we will consider Palliative Care consult as well. Job ID: [id number]
[2018-09-16] MEDS: Fluticasone Propionate Nasal Spray 16 gm Bottle NASAL SCH (09:12)
[2018-09-16] MEDS: Senokot S 8.6-50 MG TAB PO SCH ×3 (09:13→20:43)
[2018-09-16] MEDS: Calcium Carbonate + Vit D 1 TAB PO SCH (09:13)
[2018-09-16] MEDS: Tamsulosin HCl 0.4 MG CAP PO SCH (09:14)
[2018-09-16] MEDS: Apixaban 5 MG TAB PO SCH ×2 (09:14→20:38)
[2018-09-16] MEDS: Polyethylene Glycol 3350 17 GM Packet PO SCH (09:15)
[2018-09-16] MEDS: Morphine ER 30 MG TAB PO SCH ×2 (09:16→20:37)
--- NOTE | 2018-09-16 10:41 | RAD ---
XR Abdomen 1 View/KUB History: Abdominal pain Comparison: None. Findings: Cholelithiasis is present. There are phleboliths in the pelvis. No dilated air-filled loops of large or small bowel. No air-fluid levels. Mild facet arthrosis and SI joint degeneration. Impression: No acute intra-abdominal abnormality.
--- NOTE | 2018-09-16 10:43 | RAD ---
XR Chest Pa Lat STANDARD History: Chest pain Comparison: Radiograph September 06, 2018 Findings: Similar appearance of the extensive nodules present throughout the lungs. Moderate effusion s have slightly increased in size. Heart size is enlarged. No pneumothorax. No acute osseous abnormality. Impression: Enlarging pleural effusions with diffuse metastatic disease.
[2018-09-16] MEDS: cloNIDine 0.1 MG TAB PO SCH ×2 (11:11→20:38)
[2018-09-16] MEDS: Metoclopramide HCl 10 MG TAB PO SCH ×3 (11:15→23:54)
[2018-09-16] MEDS ORDERED: Furosemide 40 MG/4 ML VIAL SLOW IVP SCH (18:15)
[2018-09-16] MEDS: Mirtazapine 15 MG Soltab PO SCH (20:39)
[2018-09-17] MEDS ORDERED: Morphine 4 MG/ML VIAL SLOW IVP SCH (00:15)
[2018-09-17] MEDS: Metoclopramide HCl 10 MG TAB PO SCH ×2 (06:05→12:48)
[2018-09-17 06:22] LABS: Anion Gap 17 mmol/L (10-20); BUN (Urea Nitrogen) 17 mg/dL (9.8-20.1); Calc. Creatinine Clearance 125 mL/min (70-130); Calcium 8.2 mg/dL (7.8-10.44); Carbon Dioxide 20 mmol/L (23-31); Chloride 103 mmol/L (98-107); Estimated GFR-MDRD Greater than 90; Glucose 95 mg/dL (80-115); Potassium 4.5 mmol/L (3.5-5.1); Sodium 135 mmol/L (136-145)
[2018-09-17 06:25] LABS: #Eosinphils 0.1 thou/uL (0.0-0.7); #Monocytes 1.4 thou/uL (0.11-0.59); #Neutrophils 5.7 thou/uL (1.40-6.50); %Basophils 0.3 % (0.0-1.0); %Eosinophils 1.3 % (0.0-10.0); %Lymphocytes 29.1 % (21.0-51.0); %Monocytes 13.8 % (0.0-10.0); %Neutrophils 55.5 % (42.0-75.0); Hemoglobin 9.1 g/dL (12.0-16.0); Mean Corpuscular HGB CONC 32.3 g/dL (32.0-36.0); Mean Corpuscular Hemoglobin 24.1 pg (27.0-31.0); Mean Corpuscular Volume 74.7 fL (78.0-98.0); Mean Platelet Volume 8.5 fL (7.4-10.4); Platelet Count 413 thou/uL (130-400); RBC Distribution Width 17.3 % (11.5-14.5); Red Blood Cell (RBC) Count 3.77 mill/uL (4.20-5.40); White Blood Cell (WBC) Count 10.3 thou/uL (4.8-10.8)
[2018-09-17] MEDS: Morphine ER 30 MG TAB PO SCH ×2 (08:51→22:02)
[2018-09-17] MEDS: cloNIDine 0.1 MG TAB PO SCH ×2 (08:54→22:09)
[2018-09-17] MEDS: Apixaban 5 MG TAB PO SCH ×2 (08:54→22:09)
[2018-09-17] MEDS: Fluticasone Propionate Nasal Spray 16 gm Bottle NASAL SCH (08:59)
[2018-09-17] MEDS: Senokot S 8.6-50 MG TAB PO SCH ×2 (10:39→22:09)
[2018-09-17] MEDS: Polyethylene Glycol 3350 17 GM Packet PO SCH (10:39)
[2018-09-17] MEDS: Calcium Carbonate + Vit D 1 TAB PO SCH (10:40)
[2018-09-17] MEDS: Tamsulosin HCl 0.4 MG CAP PO SCH (10:40)
[2018-09-17] MEDS ORDERED: ISOVUE-370 76%-LOCM 1 ML ONE (12:09)
[2018-09-17 12:44] LABS: INR-International Normal Ratio 2.2; Prothrombin Time 23.9 SEC (12.0-14.7)
[2018-09-17] MEDS ORDERED: Ondansetron ODT 4 MG TAB PO PRN (13:27)
--- NOTE | 2018-09-17 14:53 | PDOC.PN ---
- Subjective Encounter Start Date: 09/17/18 Encounter Start Time: 14:51 Ms. Farley was seen today in follow-up of respiratory failure. She says she was in pain all night. She says it is from the lower abdomen. She also says she has been nauseated and vomiting most of the day. She says she even has not been able to keep her medications down. - Objective Resuscitation Status - Order Detail: 09/16/18 08:14 Resuscitation Status Routine Resuscitation Status: FULL: Full Resuscitation MAR Reviewed: Yes Vital Signs & Weight: Vital Signs (12 hours) Temp Pulse Resp BP BP Pulse Ox 09/17/18 12:30 97.8 F 84 20 116/56 L 94 L 09/17/18 08:54 134/67 09/17/18 07:32 97.7 F 97 18 131/64 95 09/17/18 07:30 95 09/17/18 04:00 98.4 F 93 21 H 137/64 97 Weight Weight 212 lb 12.8 oz I&O: 09/16/18 09/17/18 09/18/18 06:59 06:59 06:59 Intake Total 480 Output Total 950 Balance -470 Result Diagrams: 09/17/18 05:46 09/17/18 05:46 Phys Exam - Physical Examination HEENT: PERRLA + rales bilaterally, no wheezing or rhonchi Cardiovascular: RRR, no significant murmur, no rub Gastrointestinal: soft, no distention, positive bowel sounds + mild lower abdominal tenderness no rebound or guarding Musculoskeletal: no edema, pulses present Dx/Plan (1) Acute respiratory failure with hypoxia Code(s): J96.01 - ACUTE RESPIRATORY FAILURE WITH HYPOXIA Status: Acute (2) Pleural effusion Code(s): J90 - PLEURAL EFFUSION, NOT ELSEWHERE CLASSIFIED Status: Acute (3) Endometrial cancer Code(s): C54.1 - MALIGNANT NEOPLASM OF ENDOMETRIUM Status: Acute Comment: Stage IV process, awaiting initiation of chemotherapy, pain control, Med Oncology consulted (4) Nausea & vomiting Code(s): R11.2 - NAUSEA WITH VOMITING, UNSPECIFIED Status: Acute Comment: Multifactorial, antiemetics, add Scopolamine patch, IVF's, advance diet slowly, improved (5) Pulmonary emboli Code(s): I26.99 - OTHER PULMONARY EMBOLISM WITHOUT ACUTE COR PULMONALE Status : Acute (6) Hypertension Code(s): I10 - ESSENTIAL (PRIMARY) HYPERTENSION Status: Chronic - Plan * Acute respiratory failure- I suspect this may be due to the bilateral pleural effusions- she was given Lasix with not much improvement. and her Echo did not demonstrate any significant failure- will consult Pulmonology to see if she would benefit from a therapeutic thorocentesis * Abdominal pain and nausea and vomiting- concern that this may be at least in part to gallbladder disease- she has documented gallstones on CT scan during her prior admission- can check a HIDA scan to see if these are causing her problems * Metastatic Endometrial Cancer- her work-up is in progress- she has not yet started chemotherapy * HTN- blood pressure is stable * DM- blood glucose is stable * PE- continue coumadin. INR is 2.2 today
[2018-09-17] MEDS: Metoclopramide HCl 10 MG/2 ML VIAL IVP SCH ×2 (18:47→22:10)
--- NOTE | 2018-09-17 19:57 | CT ---
CT CHEST WITH CONTRAST: HISTORY: Endometrial cancer. Evaluate for metastatic disease. COMPARISON: None. TECHNIQUE: Multiple contiguous axial images were obtained in a CT of the chest with contrast. Coronal reformats were performed. FINDINGS: There are [id number] cannonball metastases scattered throughout the lungs, consistent with diffuse metastatic disease. There are small bilateral pleural effusions with adjacent atelectasis. The heart is normal in size. No hilar or mediastinal lymphadenopathy is seen. The visualized subdiaphragmatic structures are unremarkable. The chest wall soft tissues are unremar kable. Degenerative changes are seen in the spine. No suspicious osseous lesions are identified. IMPRESSION: 1. Diffuse pulmonary metastatic disease. 2. Bilateral pleural effusions with adjacent atelectasis. POS: C
--- NOTE | 2018-09-17 22:03 | CON ---
DATE OF CONSULTATION: 09/17/2018 CONSULTING PHYSICIAN: Dr. Alcaraz. REASON FOR CONSULTATION: Pleural effusion. Following encompassed 70 minutes time, of that time, greater than 50% spent with the patient and/or the patient's unit in the hospital. HISTORY OF PRESENT ILLNESS: Ms. Farley is a 63-year-old who was hospitalized for the 4th time in recent history for continued shortness of breath and failure to thrive. She has a history of metastatic endometrial cancer to the lungs, to this point, she has not started chemotherapy, but she had plans to start that this week. Back in July, she was diagnosed with pulmonary emboli at [facility] and she has been on Eliquis for treatment of that. She has no previous history of asthma or COPD. I was asked to see her in regard to potential pleural effusion. I reviewed her x-rays and her previous CT scans. Most notable finding included diffuse bilateral nodular disease. It now looks like she has probably developed some lymphangitic spread and I question how much pleural fluid is actually present. PAST MEDICAL HISTORY: 1. Endometrial cancer. 2. Chronic back pain. 3. Hypertension. 4. Pulmonary emboli. PAST SURGICAL HISTORY: 1. Tonsillectomy. 2. Appendectomy. 3. Bilateral shoulder repair. 4. Bilateral tubal ligation. 5. Endometrial biopsy. ALLERGIES: RED DYE AND CODEINE. 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 Does not smoke. Does not consume alcohol. Does not use illicit drugs. FAMILY MEDICAL HISTORY: Remarkable for cancer and heart disease. MEDICATIONS: Prior to admission: 1. Eliquis 5 mg twice daily. 2. Calcium plus D 1 tablet daily. 3. Clonidine 0.1 mg twice daily. 4. Flonase nasal spray as needed. 5. Anaspaz 0.125 mg every 4 hours as needed. 6. Reglan 10 mg every 6 hours as needed. 7. Mirtazapine 50 mg nightly. 8. Morphine immediate release 50 mg every 4 hours as needed. 9. MS Contin 60 mg twice daily. 10. Olanzapine 2.5 mg t.i.d. 11. Zofran 4 mg sublingually as needed. 12. Senna 4 mg twice daily. 13. Flomax 0.4 mg daily. REVIEW OF SYSTEMS: She has had decreased appetite. She has severe nausea with medications. She has severe pain throughout. Otherwise, review of systems is negative. PHYSICAL EXAMINATION: VITAL SIGNS: Temperature is 97.8, pulse 84 respirations 20, sat 94% on room air, blood pressure 116/56. The patient is 5 feet 6, weighs 212 pounds. GENERAL: She is sitting in bed, is in no distress. HEENT: Pupils reactive. Sclerae icteric. Oropharynx clear. NECK: No palpable adenopathy or JVD. LUNGS: She has some inspiratory crackles heard bilaterally. She is not dull at either base to percussion. CARDIAC: S1, S2 regular. No audible murmur. ABDOMEN: Soft, nontender to palpation. EXTREMITIES: No clubbing, cyanosis, or edema. LABORATORY DATA: Sodium 135, potassium 4.5, chloride 103, CO2 20, BUN 17, creatinine 0.7, glucose 95. White blood cell count 10.3, hematocrit 28.2, and platelet count 413. INR is 2.2. IMAGING: I reviewed her CT scan in detail, also reviewed current x-ray. ASSESSMENT: Increased dyspnea. I think the most likely scenario is her extensive tumor metastasis to her lung hicks are making her symptomatic. She may also have lymphangitic spread from this. On top of this, she has pulmonary emboli. I was not impressed by the amount of pleural fluid by the x-rays, but this is sometimes difficult to tell. PLAN: I will proceed with a CT scan with contrast to further evaluate. Further disposition to follow. Agree with current interventions including the oxygen. This patient needs oncology referral and to start chemotherapy as soon as possible. Job ID: [id number]
[2018-09-17] MEDS: Mirtazapine 15 MG Soltab PO SCH (22:09)
[2018-09-17] MEDS: Ondansetron PF 4 MG/2 ML Vial IVP PRN (23:13)
[2018-09-18] MEDS: Senokot S 8.6-50 MG TAB PO SCH ×3 (00:06→21:19)
[2018-09-18] MEDS ORDERED: Morphine 4 MG/ML VIAL SLOW IVP SCH (00:15)
[2018-09-18] MEDS: Morphine ER 30 MG TAB PO SCH ×3 (00:39→20:59)
[2018-09-18] MEDS ORDERED: Morphine IR Tab 15 MG TAB PO SCH (03:00)
[2018-09-18] MEDS: Metoclopramide HCl 10 MG/2 ML VIAL IVP SCH ×5 (04:06→23:55)
[2018-09-18 04:38] LABS: INR-International Normal Ratio 2.3; Prothrombin Time 25.1 SEC (12.0-14.7)
--- NOTE | 2018-09-18 09:39 | PRG ---
DATE OF SERVICE: 09/18/2018 SUBJECTIVE: The patient is not having as much shortness of breath today. She has some complaints about nursing care last night. OBJECTIVE: VITAL SIGNS: On exam, temperature 98.1, pulse 87, respirations 18, sat 98% on 2 L, and blood pressure 127/61. HEENT: Unremarkable. NECK: No JVD. LUNGS: Few diminished breath sounds in both bases. CARDIAC: S1, S2. Regular. ABDOMEN: Soft. EXTREMITIES: No edema. DIAGNOSTIC DATA: I reviewed her CT scan. She has mild bilateral pleural effusions as well as extensive nodular metastasis in both lungs. ASSESSMENT: The patient has metastatic endometrial cancer. She has mild bilateral pleural effusions. RECOMMENDATIONS: Basically, this lady needs chemotherapy. There is a little point in the intervening with thoracentesis given the mild effusion at this time. If she has no response to chemotherapy, then it is reasonable to assume these effusions will increase in size and will have to be addressed. I will leave it up to the hospitalist. Either local Oncology needs to be involved or she needs to be transferred to [facility] for further therapy. Job ID: [id number]
[2018-09-18] MEDS: Polyethylene Glycol 3350 17 GM Packet PO SCH (10:22)
[2018-09-18] MEDS: cloNIDine 0.1 MG TAB PO SCH ×2 (10:23→20:59)
[2018-09-18] MEDS: Calcium Carbonate + Vit D 1 TAB PO SCH ×2 (10:24→10:42)
[2018-09-18] MEDS: Fluticasone Propionate Nasal Spray 16 gm Bottle NASAL SCH (10:26)
[2018-09-18] MEDS: Tamsulosin HCl 0.4 MG CAP PO SCH (10:27)
[2018-09-18] MEDS: Apixaban 5 MG TAB PO SCH ×2 (10:27→21:19)
--- NOTE | 2018-09-18 11:15 | PDOC.PN ---
- Subjective Encounter Start Date: 09/18/18 Encounter Start Time: 11:13 Subjective: 63 y/o female with metastatic endometrial ca admitted with SOB. -: Alsohaving nausea, vomyting and pelvic and low back pain. -: No fever. - Objective Resuscitation Status - Order Detail: 09/16/18 08:14 Resuscitation Status Routine Resuscitation Status: FULL: Full Resuscitation Vital Signs & Weight: Vital Signs (12 hours) Temp Pulse Resp BP Pulse Ox 09/18/18 08:00 98.1 F 99 18 141/63 H 98 09/18/18 04:31 98.1 F 87 18 127/61 98 Weight Weight 212 lb 12.8 oz I&O: 09/17/18 09/18/18 09/19/18 06:59 06:59 06:59 Intake Total 480 Output Total 950 Balance -470 Result Diagrams: 09/17/18 05:46 09/17/18 05:46 Phys Exam - Physical Examination anxious with mild painful distress HEENT: PERRLA, moist MMs Neck: no JVD Respiratory: no rhonchi fair air entry with some transmitted sound. Cardiovascular: RRR Gastrointestinal: soft, no distention, positive bowel sounds lowe abdominal tenderness noted Musculoskeletal: no edema, pulses present Neurological: non-focal, moves all 4 limbs Psychiatric: normal affect, A&O x 3 Dx/Plan (1) Acute respiratory failure with hypoxia Code(s): J96.01 - ACUTE RESPIRATORY FAILURE WITH HYPOXIA Status: Acute (2) Pleural effusion Code(s): J90 - PLEURAL EFFUSION, NOT ELSEWHERE CLASSIFIED Status: Acute (3) Chronic anticoagulation Code(s): Z79.01 - THERMOSTAT MAKER (CURRENT) USE OF ANTICOAGULANTS Status: Acute Comment: Resume Eliquis 5mg BID (4) Endometrial cancer Code(s): C54.1 - MALIGNANT NEOPLASM OF ENDOMETRIUM Status: Acute Comment: Stage IV process, awaiting initiation of chemotherapy, (5) Nausea & vomiting Code(s): R11.2 - NAUSEA WITH VOMITING, UNSPECIFIED Status: Acute Comment: Multifactorial, antiemetics, add Scopolamine patch, IVF's, advance diet slowly, improved (6) Pulmonary emboli Code(s): I26.99 - OTHER PULMONARY EMBOLISM WITHOUT ACUTE COR PULMONALE Status : Acute (7) Hypertension Code(s): I10 - ESSENTIAL (PRIMARY) HYPERTENSION Status: Chronic - Plan Continue symptom control with anxiolytoc, antiemetics and analgesic -: Consult Oncology for possible chemotherapy initiation -: oxygen as needed. -: Continue dietary supplement -: Consult palliative care. * .
[2018-09-18] MEDS: Ondansetron PF 4 MG/2 ML Vial IVP PRN (21:05)
[2018-09-18] MEDS: Mirtazapine 15 MG Soltab PO SCH (21:19)
--- NOTE | 2018-09-18 21:42 | CON ---
DATE OF CONSULTATION: REASON FOR CONSULT: High-grade uterine carcinoma. HISTORY OF PRESENT ILLNESS: Ms. 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 She was initially seen at [facility], where a biopsy was scheduled. Unfortunately, she had a pulmonary embolism prior to biopsy. She was started on anticoagulation. She eventually did have a lymph node biopsy, which returned a high-grade carcinoma suggestive of Mullerian origin. Prior to starting any chemotherapy, she was hospitalized for shortness of breath and pain. She was treated and discharged home and returned within 24 hours for a new onset vaginal bleeding. At that point, she was transferred to [facility]. She was just discharged from their facility on September 15. She returned to this ER on September 16 with shortness of breath. She does have multiple lung nodules consistent with metastatic disease. She also had mild bilateral pleural effusion. She was seen by Dr. Taylor, but no thoracentesis was recommended at this time. We are seeing the patient to initiate palliative chemotherapy. Currently, she complains of mild abdominal discomfort and pelvic pain. She does continued to have vaginal bleeding, but she says that this is extremely light. She remains on anticoagulation for her pulmonary embolism. PAST MEDICAL HISTORY: 1. Stage IV high-grade carcinoma Mullerian tumor. 2. Bilateral pulmonary emboli. 3. Chronic back pain with degenerative disk disease. 4. Hypertension. 5. Obesity. 6. History of endometriosis. PAST SURGICAL HISTORY: 1. Tonsillectomy. 2. Appendectomy. 3. Bilateral shoulder repair. 4. Bilateral tubal ligation. 5. Fistula repair. 6. Lymph node biopsy. ALLERGIES: TO DYE AND CODEINE. HOME MEDICATIONS: 1. Eliquis 5 mg b.i.d. 2. Vitamin D daily. 3. Catapres 0.1 mg b.i.d. 4. Reglan 10 mg q.6 h. 5. Mirtazapine 15 mg daily. 6. MS Contin 60 mg q.12 h. 7. MS-IR 15 mg q.4 h. p.r.n. 8. Zofran p.r.n. 9. Senokot b.i.d. FAMILY HISTORY: No significant cancer. SOCIAL HISTORY: , lives in [place] with her daughter. No alcohol, tobacco , or illicit drug use. REVIEW OF SYSTEMS: A 10-point review of systems is negative except for noted in HPI. PHYSICAL EXAMINATION: VITAL SIGNS: Temperature is 98.1, pulse is 99, respiratory rate 18, BP is 141/ 63, and she is 98% on 3.5 L. GENERAL: An ill-appearing female, in no acute distress. HEENT: Normocephalic and atraumatic. Pupils are equal and reactive to light. NECK: Supple. CV: Regular rate and rhythm. LUNGS: Clear anterior. ABDOMEN: Obese, mildly tender to palpation in the lower quadrants. EXTREMITIES: 1+ bilateral lower extremity edema. SKIN: No rash. HEMATOLOGIC: No petechiae or purpura. NEUROLOGIC: Nonfocal. PSYCH: She is alert, oriented, and appropriate. PERTINENT LABS AND X-RAYS: Current WBCs are 10.3, hemoglobin 9.1, hematocrit 28.2, and platelet count 413,000. She has 55% neutrophils, 29% lymphocytes, and 13% monocytes. PT is 25.1. INR is 2.3. Sodium 135, potassium 4.5, chloride 103, CO2 is 20, BUN is 17, creatinine 0.71, magnesium 1.7, and calcium 8.2. Troponin is negative. Total bilirubin is 0.4, AST is 14, ALT is 11, and alkaline phosphatase is 127. Serum total protein 7.1, albumin 3.2, and globulin 3.9. Chest CT shows mild bilateral pleural effusions and diffuse pulmonary metastatic disease. ASSESSMENT: 1. High-grade carcinoma consistent with Mullerian origin. 2. Recent bilateral pulmonary emboli. DISCUSSION: The patient has been discussed with Dr. Chan. The plan is to transfer her to the Oncology floor and to begin palliative chemotherapy tomorrow. We would continue pain medicine for pain. Hopefully, she will improve in the next few days and can go home to follow up in the outpatient setting to continue treatment. Thank you for the consult. Job ID: [id number] [facility]ITALChuy
[2018-09-18] MEDS: Morphine IR Tab 15 MG TAB PO PRN (23:59)
[2018-09-19] MEDS: Morphine IR Tab 15 MG TAB PO PRN ×3 (03:39→12:13)
[2018-09-19 04:50] LABS: INR-International Normal Ratio 2.3; Prothrombin Time 25.5 SEC (12.0-14.7)
[2018-09-19] MEDS: Metoclopramide HCl 10 MG/2 ML VIAL IVP SCH ×3 (05:28→17:18)
[2018-09-19] MEDS ORDERED: Famotidine/PF 20 MG in Sodium Chloride 0.9% 50 ML IVPB SCH (06:00)
[2018-09-19] MEDS ORDERED: SODIUM CHLORIDE 0.9% IVPB SCH (06:00)
[2018-09-19] MEDS ORDERED: Dexamethasone 12 MG in Sodium Chloride 0.9% 50 ML IVPB SCH (06:00)
[2018-09-19] MEDS ORDERED: diphenhydrAMINE 50 MG in Sodium Chloride 0.9% 50 ML IVPB SCH (06:00)
[2018-09-19] MEDS ORDERED: Palonosetron HCl 0.25 MG in Sodium Chloride 0.9% 50 ML IVPB SCH (06:00)
[2018-09-19] MEDS ORDERED: Dexamethasone 20 MG in Sodium Chloride 0.9% 50 ML IVPB SCH (06:00)
[2018-09-19] MEDS ORDERED: PEGFILGRASTIM-JMDB 6 MG/0.6 ML SYRINGE SQ SCH ×2 (06:00→08:15)
[2018-09-19] MEDS ORDERED: CARBOPLATIN IVPB SCH (06:00)
[2018-09-19] MEDS: Senokot S 8.6-50 MG TAB PO SCH ×3 (08:11→20:54)
[2018-09-19] MEDS: cloNIDine 0.1 MG TAB PO SCH ×2 (08:14→20:57)
[2018-09-19] MEDS: Tamsulosin HCl 0.4 MG CAP PO SCH (08:14)
[2018-09-19] MEDS: Morphine ER 30 MG TAB PO SCH ×2 (08:15→20:47)
[2018-09-19] MEDS: Calcium Carbonate + Vit D 1 TAB PO SCH (08:16)
[2018-09-19] MEDS: Apixaban 5 MG TAB PO SCH ×2 (08:16→20:50)
[2018-09-19] MEDS: Polyethylene Glycol 3350 17 GM Packet PO SCH (08:17)
[2018-09-19] MEDS: Fluticasone Propionate Nasal Spray 16 gm Bottle NASAL SCH (08:17)
[2018-09-19] MEDS: Ondansetron PF 4 MG/2 ML Vial IVP PRN (08:35)
[2018-09-19 08:42] LABS: #Eosinphils 0.2 thou/uL (0.0-0.7); #Monocytes 1.2 thou/uL (0.11-0.59); #Neutrophils 6.2 thou/uL (1.40-6.50); %Basophils 0.1 % (0.0-1.0); %Eosinophils 1.7 % (0.0-10.0); %Lymphocytes 28.2 % (21.0-51.0); %Monocytes 11.3 % (0.0-10.0); %Neutrophils 58.8 % (42.0-75.0); Hemoglobin 9.3 g/dL (12.0-16.0); Mean Corpuscular HGB CONC 31.6 g/dL (32.0-36.0); Mean Corpuscular Hemoglobin 23.4 pg (27.0-31.0); Mean Corpuscular Volume 74.1 fL (78.0-98.0); Mean Platelet Volume 8.3 fL (7.4-10.4); Platelet Count 402 thou/uL (130-400); RBC Distribution Width 17.7 % (11.5-14.5); Red Blood Cell (RBC) Count 3.95 mill/uL (4.20-5.40); White Blood Cell (WBC) Count 10.5 thou/uL (4.8-10.8)
[2018-09-19 09:00] LABS: ALT (SGPT) 10 U/L (8-55); AST (SGOT) 13 U/L (5-34); Albumin 3.3 g/dL (3.4-4.8); Alkaline Phosphatase 131 U/L (40-150); Anion Gap 17 mmol/L (10-20); BUN (Urea Nitrogen) 20 mg/dL (9.8-20.1); Bilirubin, Total 0.4 mg/dL (0.2-1.2); Calc. Creatinine Clearance 123 mL/min (70-130); Calcium 8.6 mg/dL (7.8-10.44); Carbon Dioxide 24 mmol/L (23-31); Chloride 105 mmol/L (98-107); Estimated GFR-MDRD Greater than 90; Globulin 3.8 g/dL (2.4-3.5); Glucose 105 mg/dL (80-115); Potassium 4.6 mmol/L (3.5-5.1); Protein, Total 7.1 g/dL (6.0-8.3); Sodium 141 mmol/L (136-145)
[2018-09-19 09:01] LABS: Iron 38 ug/dL (50-170); Iron Binding Capacity, Total 233 mcg/dL (265-497)
--- NOTE | 2018-09-19 09:05 | PDOC.PN ---
- Subjective Encounter Start Date: 09/19/18 Encounter Start Time: 09:03 Subjective: Seen and examined. -: Feeling better and more comfortable. -: Awaiting chemotherapy initiation. Still having mild pelvic pain. - Objective Resuscitation Status - Order Detail: 09/16/18 08:14 Resuscitation Status Routine Resuscitation Status: FULL: Full Resuscitation Vital Signs & Weight: Vital Signs (12 hours) Temp Pulse Resp BP Pulse Ox 09/19/18 08:00 98.2 F 95 16 123/61 96 09/19/18 03:45 98.0 F 99 16 144/78 H 97 09/18/18 23:59 98.1 F 98 16 141/70 H 98 Weight Weight 212 lb 12.8 oz I&O: 09/18/18 09/19/18 09/20/18 06:59 06:59 06:59 Intake Total 500 Balance 500 Result Diagrams: 09/19/18 08:26 09/19/18 08:26 Phys Exam - Physical Examination Constitutional: NAD HEENT: moist MMs Neck: no JVD, supple Respiratory: no rhonchi, clear to auscultation bilateral Few crackles noted on the right side. No distress Cardiovascular: RRR Gastrointestinal: soft, no distention, positive bowel sounds Musculoskeletal: no edema, pulses present Neurological: non-focal, moves all 4 limbs Psychiatric: normal affect, A&O x 3 Dx/Plan (1) Acute respiratory failure with hypoxia Code(s): J96.01 - ACUTE RESPIRATORY FAILURE WITH HYPOXIA Status: Acute Comment: Due Pulmonary metastasis superimposed on PE (2) Pleural effusion Code(s): J90 - PLEURAL EFFUSION, NOT ELSEWHERE CLASSIFIED Status: Acute (3) Chronic anticoagulation Code(s): Z79.01 - USP (CURRENT) USE OF ANTICOAGULANTS Status: Acute Comment: Resume Eliquis 5mg BID (4) Endometrial cancer Code(s): C54.1 - MALIGNANT NEOPLASM OF ENDOMETRIUM Status: Acute Comment: Stage IV process, awaiting initiation of chemotherapy, (5) Nausea & vomiting Code(s): R11.2 - NAUSEA WITH VOMITING, UNSPECIFIED Status: Acute Comment: Multifactorial, antiemetics, add Scopolamine patch, IVF's, advance diet slowly, improved (6) Pulmonary emboli Code(s): I26.99 - OTHER PULMONARY EMBOLISM WITHOUT ACUTE COR PULMONALE Status : Acute (7) Hypertension Code(s): I10 - ESSENTIAL (PRIMARY) HYPERTENSION Status: Chronic - Plan Get iron chemistry -: Continue supportive care -: Get repeat CBC and CMP in preparation for Chemo initiation. -: For chemotherapy today. * .
[2018-09-19 09:35] LABS: Hypochromia SLIGHT = 6-15 cells (100X) (0-5/hpf); MDiff Complete? YES; Microcytosis MODERATE=15-30 cells (100X) (0-5/hpf); Platelet Morphology Comment Appears Increased; Polychromasia SLIGHT = 2-3 cells (100X) (0-2/hpf)
--- NOTE | 2018-09-19 09:39 | PRG ---
DATE OF SERVICE: 09/19/2018 SUBJECTIVE: She is feeling well, has no complaints, but short of breath. She is anticipating chemo starting later today. OBJECTIVE: VITAL SIGNS: Temperature is 98.2, pulse 95, respirations 16, O2 saturations 96% on 2 L, and blood pressure 123/61. HEENT: Unremarkable. NECK: No adenopathy or JVD. CHEST: Clear to auscultation anteriorly. CARDIAC: S1, S2. Regular. ABDOMEN: Soft. EXTREMITIES: No edema. ASSESSMENT: Metastatic endometrial cancer with small bilateral pleural effusions. PLAN: I would really like to see how she responds to chemo before deciding any further events on the pleural effusions. She can follow up with me a few weeks after hospital discharge. No further recommendations at this time. Job ID: [id number]
--- NOTE | 2018-09-19 15:07 | PDOC.PALCO ---
Palliative Care Consult - Consult Details Requesting Physician: Dr Cunningham Reason for Consult: symptom management, assistance with communication prognosis/ disease - Pertinent HPI Patient with metastatic endometrial cancer. Presenting with acute reps failure and hypoxia. Found to have pulmonary metastasis with pleural effusion. Admitted , receiving palliative chemo. Consult by Dr Cunningham for symptom management secondary to pain and nausea as well as discussion with disease progression. - Pertinent PMH Endometrial cancer with mets to lung. Pulmonary metastasis, pulmonary emboli, HTN, Obesity, - Social History Smoking Status: Never smoker Smoking: no tobacco exposure Alcohol Use: none Drug Use History: none - Medications MAR Reviewed: Yes - Allergies Allergies/Adverse Reactions: Allergies Allergy/AdvReac Type Severity Reaction Status Date / Time red dye Allergy Verified 09/16/18 02:34 codeine AdvReac Hives Verified 09/16/18 02:34 - Subjective Chronically ill appearing, weakness. O2 via NC. Patient states her 7 grandchildren do not know the extent of her cancer, discussed possibility to letting them know. Patient asked if we could see if the medications she has for home are a possibility to use at discharge for management of symptoms. Will identify what these are and share with primary care. States pain is worse 10pm- 6 am and nausea is more pronounced with movement. - Objective Vital Signs: Vital Signs - Most Recent Temp Pulse Resp BP Pulse Ox 97.5 F L 90 18 140/70 98 09/19/18 12:00 09/19/18 12:00 09/19/18 12:00 09/19/18 12:00 09/19/18 12:00 Palliative Performance Scale: 30 - Physical Exam Deviation from normal: Oriented with slight lethargy, pain a 6 on 1-10 HEENT: moist MMs, EOMI Deviation from normal: Slight accessory muscle use with speech Gastrointestinal: soft Deviation from normal: generalized tenderness with palpation Neurological: moves all 4 limbs Psychiatric: normal affect - Problem List (1) Palliative care encounter Code(s): Z51.5 - ENCOUNTER FOR PALLIATIVE CARE Current Visit: Yes Status: Acute Assessment: Chronic pain with difficulty managing. Allergy to red as well as nausea/ vomiting impair oral medications. Difficult to address nausea/vomiting secondary to palliative chemo initiated today. Patient states correlation between pain and nausea is also noted - Plan/Recommendations Plan: *Transition back to Fentanyl Patch (Patient has tried in the past, has some at home. States eh is unsure if this was therapeutic in managing as she did not use long.) *Continue Morphine IR for breakthrough pain as previously ordered. *Assess Nausea tomorrow and consider Scopolamine patch *Monitor therapeutic response to pain after 48 hours of use of Fentanyl Patch *Follow up tomorrow for discussion in relation to Cancer/Metastasis and understanding impact in goals of care. [75] minutes spent on this encounter with >50% of the time in counseling and coordination of care. Thank you for this very appropriate consult.
[2018-09-19] MEDS ORDERED: fentaNYL 50 mcg/hour Patch TD SCH (15:30)
[2018-09-19] MEDS: Mirtazapine 15 MG Soltab PO SCH (20:50)
[2018-09-20] MEDS: Morphine IR Tab 15 MG TAB PO PRN ×2 (00:21→13:11)
[2018-09-20] MEDS: Metoclopramide HCl 10 MG/2 ML VIAL IVP SCH ×4 (00:45→18:42)
[2018-09-20 04:47] LABS: INR-International Normal Ratio 2.5; Prothrombin Time 26.6 SEC (12.0-14.7)
[2018-09-20] MEDS: Apixaban 5 MG TAB PO SCH ×2 (09:13→22:12)
[2018-09-20] MEDS: Polyethylene Glycol 3350 17 GM Packet PO SCH (09:16)
[2018-09-20] MEDS: Morphine ER 30 MG TAB PO SCH (09:17)
[2018-09-20] MEDS: Tamsulosin HCl 0.4 MG CAP PO SCH (09:17)
[2018-09-20] MEDS: cloNIDine 0.1 MG TAB PO SCH ×2 (09:19→22:11)
[2018-09-20] MEDS: Senokot S 8.6-50 MG TAB PO SCH ×2 (09:20→22:15)
[2018-09-20] MEDS: Fluticasone Propionate Nasal Spray 16 gm Bottle NASAL SCH (09:20)
[2018-09-20] MEDS: Calcium Carbonate + Vit D 1 TAB PO SCH (09:26)
[2018-09-20] MEDS ORDERED: PEGFILGRASTIM-JMDB 6 MG/0.6 ML SYRINGE SQ SCH ×2 (11:15→21:00)
--- NOTE | 2018-09-20 13:53 | PDOC.PN ---
- Subjective Encounter Start Date: 09/20/18 Encounter Start Time: 13:52 Subjective: S/p chemotherapy on 09/19/2018 -: No new problem -: still weak. - Objective Resuscitation Status - Order Detail: 09/16/18 08:14 Resuscitation Status Routine Resuscitation Status: FULL: Full Resuscitation Vital Signs & Weight: Vital Signs (12 hours) Temp Pulse Resp BP Pulse Ox Pulse Ox Pulse Ox 09/20/18 10:00 97 94 L 09/20/18 08:00 96 09/20/18 07:59 97.7 F 96 18 127/88 96 09/20/18 07:31 96 09/20/18 04:00 97.8 F 100 20 140/64 96 Weight Admit Weight 212 lb 12.8 oz Weight 212 lb 12.8 oz I&O: 09/19/18 09/20/18 09/21/18 06:59 06:59 06:59 Intake Total 500 1220 Balance 500 1220 Result Diagrams: 09/19/18 08:26 09/19/18 08:26 Phys Exam - Physical Examination Constitutional: NAD fatigued HEENT: moist MMs Neck: no JVD, supple Respiratory: no rhonchi fair air entry bilaterally Cardiovascular: RRR Gastrointestinal: soft, no distention, positive bowel sounds Musculoskeletal: no edema Neurological: non-focal, moves all 4 limbs Psychiatric: A&O x 3 Dx/Plan (1) Acute respiratory failure with hypoxia Code(s): J96.01 - ACUTE RESPIRATORY FAILURE WITH HYPOXIA Status: Acute Comment: Due Pulmonary metastasis superimposed on PE (2) Pleural effusion Code(s): J90 - PLEURAL EFFUSION, NOT ELSEWHERE CLASSIFIED Status: Acute (3) Chronic anticoagulation Code(s): Z79.01 - ALF (CURRENT) USE OF ANTICOAGULANTS Status: Acute Comment: Resume Eliquis 5mg BID (4) Endometrial cancer Code(s): C54.1 - MALIGNANT NEOPLASM OF ENDOMETRIUM Status: Acute Comment: Stage IV process, awaiting initiation of chemotherapy, (5) Nausea & vomiting Code(s): R11.2 - NAUSEA WITH VOMITING, UNSPECIFIED Status: Acute Comment: Multifactorial, antiemetics, add Scopolamine patch, IVF's, advance diet slowly, improved (6) Pulmonary emboli Code(s): I26.99 - OTHER PULMONARY EMBOLISM WITHOUT ACUTE COR PULMONALE Status : Acute (7) Hypertension Code(s): I10 - ESSENTIAL (PRIMARY) HYPERTENSION Status: Chronic (8) Physical deconditioning Code(s): R53.81 - OTHER MALAISE Status: Acute - Plan Continue supportive care -: Start oral supplement. -: PT/OT to continue -: get rehab screening -: get repeat CBC, CMP and magnesium in the am in view of chemo * .
[2018-09-20] MEDS: Morphine ER 15 MG TAB PO SCH (22:10)
[2018-09-20] MEDS: Mirtazapine 15 MG Soltab PO SCH (22:13)
[2018-09-21] MEDS: Morphine IR Tab 15 MG TAB PO PRN ×2 (00:54→04:54)
[2018-09-21] MEDS: Metoclopramide HCl 10 MG/2 ML VIAL IVP SCH ×4 (01:00→17:34)
[2018-09-21] MEDS ORDERED: Morphine 4 MG/ML VIAL SLOW IVP SCH (01:45)
[2018-09-21] MEDS ORDERED: Lorazepam 2 MG/ML VIAL SLOW IVP SCH (01:45)
[2018-09-21 06:22] LABS: ALT (SGPT) 9 U/L (8-55); AST (SGOT) 20 U/L (5-34); Albumin 3.2 g/dL (3.4-4.8); Alkaline Phosphatase 130 U/L (40-150); Anion Gap 18 mmol/L (10-20); BUN (Urea Nitrogen) 24 mg/dL (9.8-20.1); Bilirubin, Total 0.4 mg/dL (0.2-1.2); Calc. Creatinine Clearance 123 mL/min (70-130); Calcium 8.4 mg/dL (7.8-10.44); Carbon Dioxide 20 mmol/L (23-31); Chloride 107 mmol/L (98-107); Estimated GFR-MDRD Greater than 90; Globulin 3.6 g/dL (2.4-3.5); Glucose 96 mg/dL (80-115); Potassium 4.2 mmol/L (3.5-5.1); Protein, Total 6.8 g/dL (6.0-8.3); Sodium 141 mmol/L (136-145)
[2018-09-21 06:28] LABS: Band 7 % (5-11); Hypochromia SLIGHT = 6-15 cells (100X) (0-5/hpf); Lymphocytes 7 % (21-51); MDiff Complete? YES; Mean Corpuscular Hemoglobin 23.1 pg (27.0-31.0); Mean Corpuscular Volume 74.3 fL (78.0-98.0); Mean Platelet Volume 9.4 fL (7.4-10.4); Microcytosis SLIGHT = 6-15 cells (100X) (0-5/hpf); Monocytes 4 % (0-10); Neutrophil 82 % (42-75); Nucleated RBC 1 % (0); Platelet Count 351 thou/uL (130-400); Platelet Morphology Comment Appears Adequate; RBC Distribution Width 18.1 % (11.5-14.5); Red Blood Cell (RBC) Count 3.92 mill/uL (4.20-5.40); White Blood Cell (WBC) Count 15.6 thou/uL (4.8-10.8)
[2018-09-21] MEDS: Calcium Carbonate + Vit D 1 TAB PO SCH (11:56)
[2018-09-21] MEDS: cloNIDine 0.1 MG TAB PO SCH ×2 (11:57→22:41)
[2018-09-21] MEDS: Tamsulosin HCl 0.4 MG CAP PO SCH (11:57)
[2018-09-21] MEDS: Fluticasone Propionate Nasal Spray 16 gm Bottle NASAL SCH (11:57)
[2018-09-21] MEDS: Senokot S 8.6-50 MG TAB PO SCH ×2 (11:57→22:42)
[2018-09-21] MEDS: Apixaban 5 MG TAB PO SCH ×2 (12:01→22:42)
[2018-09-21] MEDS: Polyethylene Glycol 3350 17 GM Packet PO SCH (12:01)
[2018-09-21] MEDS: Morphine ER 15 MG TAB PO SCH ×2 (12:09→22:35)
[2018-09-21] MEDS: Ondansetron PF 4 MG/2 ML Vial IVP PRN (18:11)
--- NOTE | 2018-09-21 20:03 | PDOC.PN ---
- Subjective Encounter Start Date: 09/21/18 Encounter Start Time: 19:20 Subjective: f/u for metastatic endometrial carcinoma s/p initiation of chemo. -: Remains confused and requiring narcotic pain medications and -: antiemetics for relief. - Objective Resuscitation Status - Order Detail: 09/16/18 08:14 Resuscitation Status Routine Resuscitation Status: FULL: Full Resuscitation MAR Reviewed: Yes Vital Signs & Weight: Vital Signs (12 hours) Temp Pulse Resp BP BP BP Pulse Ox 09/21/18 19:59 98.3 F 118 H 16 163/72 H 97 09/21/18 18:17 117 H 18 94 L 09/21/18 15:40 97.3 F L 116 H 18 140/76 97 09/21/18 11:50 97.9 F 109 H 18 135/72 94 L 09/21/18 10:28 113 H 18 127/72 Weight Admit Weight 212 lb 12.8 oz Weight 212 lb 12.8 oz I&O: 09/20/18 09/21/18 09/22/18 06:59 06:59 06:59 Intake Total 1220 520 500 Balance 1220 520 500 Result Diagrams: 09/21/18 05:26 09/21/18 05:26 Additional Labs: Accuchecks 09/21/18 15:51 POC Glucose 94 Microbiology 09/16/18 11:59 Venous blood - Left Hand Blood Culture - Final NO GROWTH IN 5 DAYS 09/16/18 11:59 Venous blood - Left Arm Blood Culture - Final NO GROWTH IN 5 DAYS Laboratory Tests 08/31/18 08/31/18 09/02/18 22:19 22:19 05:37 WBC 12.5 H Hgb 9.4 L Plt Count 476 H INR Creatinine 1.37 H Iron 17 L TIBC 200 L % Saturation Ferritin 09/02/18 09/15/18 09/15/18 05:37 22:14 22:14 WBC 10.9 H Hgb 9.3 L Plt Count INR 2.0 Creatinine Iron TIBC % Saturation Ferritin 215.18 09/16/18 09/17/18 09/17/18 04:32 05:46 12:32 WBC 10.3 Hgb 9.1 L 9.1 L Plt Count INR 2.2 Creatinine Iron TIBC % Saturation Ferritin 09/18/18 09/19/18 09/19/18 04:08 04:13 08:26 WBC 10.5 Hgb 9.3 L Plt Count INR 2.3 2.3 Creatinine Iron TIBC % Saturation Ferritin 09/19/18 09/19/18 09/20/18 08:26 08:26 04:30 WBC Hgb Plt Count INR 2.5 Creatinine Iron 38 L TIBC 233 L % Saturation 16 Ferritin 347.69 H Phys Exam - Physical Examination lethargic, mumbles HEENT: PERRLA, sclera anicteric, oral pharynx no lesions Neck: no nodes, no JVD, supple, full ROM diminished in basilar segments Respiratory: no wheezing tachycardic S1, S2 Cardiovascular: no significant murmur, no rub, gallop mild TTP diffusely Gastrointestinal: no distention, positive bowel sounds Musculoskeletal: no edema, pulses present Neurological: normal sensation, moves all 4 limbs Skin: normal turgor, cap refill <2 seconds Dx/Plan (1) Acute respiratory failure with hypoxia Code(s): J96.01 - ACUTE RESPIRATORY FAILURE WITH HYPOXIA Status: Acute Comment: Due Pulmonary metastasis superimposed on PE, continue Eliquis 5mg BID, O2 prn (2) Endometrial cancer Code(s): C54.1 - MALIGNANT NEOPLASM OF ENDOMETRIUM Status: Acute Comment: Stage IV process, palliative chemo initiated, poor prognosis, appreciate palliative care assistance (3) Nausea & vomiting Code(s): R11.2 - NAUSEA WITH VOMITING, UNSPECIFIED Status: Acute Comment: Multifactorial, antiemetics, add Scopolamine patch, IVF's (4) Physical deconditioning Code(s): R53.81 - OTHER MALAISE Status: Chronic (5) Pulmonary emboli Code(s): I26.99 - OTHER PULMONARY EMBOLISM WITHOUT ACUTE COR PULMONALE Status : Acute Comment: Continue Eliquis - Plan social media director, DVT proph w/SCDs Continue supportive mgmt -: Pain mgmt -: Add Scopolamine patch for nausea -: Palliative care appreciated -: AM lab: PT/INR * .
[2018-09-21] MEDS: Scopolamine 1.5 mg/72 hour Patch TD SCH (21:10)
[2018-09-21] MEDS: Mirtazapine 15 MG Soltab PO SCH (22:41)
[2018-09-22] MEDS ORDERED: Sterile Water 10 ML VIAL FS PRN (01:11)
[2018-09-22] MEDS ORDERED: Ziprasidone 20 MG VIAL IM SCH (01:30)
[2018-09-22] MEDS: Metoclopramide HCl 10 MG/2 ML VIAL IVP SCH ×4 (02:13→17:27)
[2018-09-22] MEDS: Morphine IR Tab 15 MG TAB PO PRN (03:13)
[2018-09-22] MEDS: Calcium Carbonate + Vit D 1 TAB PO SCH (09:12)
[2018-09-22] MEDS: Fluticasone Propionate Nasal Spray 16 gm Bottle NASAL SCH (09:13)
[2018-09-22] MEDS: cloNIDine 0.1 MG TAB PO SCH ×2 (09:13→22:36)
[2018-09-22] MEDS: Senokot S 8.6-50 MG TAB PO SCH ×2 (09:14→22:36)
[2018-09-22] MEDS: Morphine ER 15 MG TAB PO SCH ×2 (11:04→22:18)
[2018-09-22] MEDS: Polyethylene Glycol 3350 17 GM Packet PO SCH (11:05)
[2018-09-22] MEDS: Tamsulosin HCl 0.4 MG CAP PO SCH (11:05)
[2018-09-22] MEDS: Apixaban 5 MG TAB PO SCH ×2 (11:05→22:34)
[2018-09-22] MEDS: Dextrose 5 % And 0.9 % NaCl 1,000 ML IV SCH ×2 (12:17→22:03)
--- NOTE | 2018-09-22 16:17 | PDOC.PN ---
- Subjective Encounter Start Date: 09/22/18 Encounter Start Time: 14:05 Subjective: f/u for metastatic endometrial carcinoma initiated on palliative -: chemo, managed for pain control. Became combative overnight requiring -: Geodon. Minimal po intake today. - Objective Resuscitation Status - Order Detail: 09/16/18 08:14 Resuscitation Status Routine Resuscitation Status: FULL: Full Resuscitation MAR Reviewed: Yes Vital Signs & Weight: Vital Signs (12 hours) Temp Pulse Resp BP Pulse Ox 09/22/18 08:00 97.7 F 111 H 18 134/64 97 09/22/18 07:58 97 Weight Admit Weight 212 lb 12.8 oz Weight 212 lb 12.8 oz I&O: 09/21/18 09/22/18 09/23/18 06:59 06:59 06:59 Intake Total 520 500 Balance 520 500 Result Diagrams: 09/21/18 05:26 09/21/18 05:26 Additional Labs: Accuchecks 09/21/18 15:51 POC Glucose 94 Microbiology 09/16/18 11:59 Venous blood - Left Hand Blood Culture - Final NO GROWTH IN 5 DAYS 09/16/18 11:59 Venous blood - Left Arm Blood Culture - Final NO GROWTH IN 5 DAYS Laboratory Tests 08/31/18 08/31/18 09/02/18 22:19 22:19 05:37 WBC 12.5 H Hgb 9.4 L Plt Count 476 H INR Creatinine 1.37 H Iron 17 L TIBC 200 L % Saturation Ferritin 09/02/18 09/15/18 09/15/18 05:37 22:14 22:14 WBC 10.9 H Hgb 9.3 L Plt Count INR 2.0 Creatinine Iron TIBC % Saturation Ferritin 215.18 09/16/18 09/17/18 09/17/18 04:32 05:46 12:32 WBC 10.3 Hgb 9.1 L 9.1 L Plt Count INR 2.2 Creatinine Iron TIBC % Saturation Ferritin 09/18/18 09/19/18 09/19/18 04:08 04:13 08:26 WBC 10.5 Hgb 9.3 L Plt Count INR 2.3 2.3 Creatinine Iron TIBC % Saturation Ferritin 09/19/18 09/19/18 09/20/18 08:26 08:26 04:30 WBC Hgb Plt Count INR 2.5 Creatinine Iron 38 L TIBC 233 L % Saturation 16 Ferritin 347.69 H Phys Exam - Physical Examination opens eyes, states a few words to name HEENT: PERRLA, sclera anicteric, oral pharynx no lesions Neck: no nodes, no JVD, supple, full ROM Respiratory: no wheezing, no rales, no rhonchi, clear to auscultation bilateral tachycardic S1, S2 Cardiovascular: no significant murmur, no rub, gallop Gastrointestinal: soft, no distention, positive bowel sounds Musculoskeletal: no edema, pulses present Neurological: normal sensation, moves all 4 limbs Skin: normal turgor, cap refill <2 seconds Dx/Plan (1) Acute respiratory failure with hypoxia Code(s): J96.01 - ACUTE RESPIRATORY FAILURE WITH HYPOXIA Status: Acute Comment: Due Pulmonary metastasis superimposed on PE, continue Eliquis 5mg BID, O2 prn (2) Endometrial cancer Code(s): C54.1 - MALIGNANT NEOPLASM OF ENDOMETRIUM Status: Acute Comment: Stage IV process, palliative chemo initiated, poor prognosis, appreciate palliative care assistance (3) Nausea & vomiting Code(s): R11.2 - NAUSEA WITH VOMITING, UNSPECIFIED Status: Acute Comment: Multifactorial, antiemetics, add Scopolamine patch, IVF's (4) Physical deconditioning Code(s): R53.81 - OTHER MALAISE Status: Chronic (5) Pulmonary emboli Code(s): I26.99 - OTHER PULMONARY EMBOLISM WITHOUT ACUTE COR PULMONALE Status : Acute Comment: Continue Eliquis - Plan vp digital marketing social media and crm, DVT proph w/SCDs Continue supportive mgmt -: Palliative chemo initiated -: Pain control as clinically indicated -: Continue Eliquis 5mg BID -: Start D5NS @ 100ml/h * .
[2018-09-22] MEDS: Mirtazapine 15 MG Soltab PO SCH (22:36)
[2018-09-23] MEDS: Metoclopramide HCl 10 MG/2 ML VIAL IVP SCH ×5 (00:10→21:00)
[2018-09-23] MEDS: Ondansetron PF 4 MG/2 ML Vial IVP PRN (08:26)
[2018-09-23] MEDS: Fluticasone Propionate Nasal Spray 16 gm Bottle NASAL SCH (08:29)
[2018-09-23] MEDS: Morphine ER 30 MG TAB PO SCH ×3 (10:06→21:00)
[2018-09-23] MEDS: Apixaban 5 MG TAB PO SCH ×2 (10:06→21:00)
[2018-09-23] MEDS: cloNIDine 0.1 MG TAB PO SCH ×2 (10:08→21:00)
[2018-09-23] MEDS: Senokot S 8.6-50 MG TAB PO SCH ×2 (10:09→21:00)
[2018-09-23] MEDS: Polyethylene Glycol 3350 17 GM Packet PO SCH (10:09)
[2018-09-23] MEDS: Calcium Carbonate + Vit D 1 TAB PO SCH (10:09)
[2018-09-23] MEDS: Tamsulosin HCl 0.4 MG CAP PO SCH (10:10)
[2018-09-23] MEDS ORDERED: Promethazine HCl 25 MG in Sodium Chloride 0.9% 50 ML IVPB PRN (10:27)
--- NOTE | 2018-09-23 16:10 | PDOC.PN ---
- Subjective Encounter Start Date: 09/23/18 Encounter Start Time: 16:10 Subjective: f/u for metastatic endometrial carcinoma initiated on palliative chemo. -: Pt reports N/V and intermittent abd cramping. Poor po intake and minimally -: mobile. - Objective Resuscitation Status - Order Detail: 09/16/18 08:14 Resuscitation Status Routine Resuscitation Status: FULL: Full Resuscitation MAR Reviewed: Yes Vital Signs & Weight: Vital Signs (12 hours) Temp Pulse Resp BP Pulse Ox 09/23/18 08:00 97.8 F 104 H 18 133/62 93 L 09/23/18 07:53 97 09/23/18 07:48 93 L Weight Admit Weight 212 lb 12.8 oz Weight 212 lb 12.8 oz I&O: 09/22/18 09/23/18 09/24/18 06:59 06:59 06:59 Intake Total 500 900 Balance 500 900 Result Diagrams: 09/21/18 05:26 09/21/18 05:26 Additional Labs: Microbiology 09/16/18 11:59 Venous blood - Left Hand Blood Culture - Final NO GROWTH IN 5 DAYS 09/16/18 11:59 Venous blood - Left Arm Blood Culture - Final NO GROWTH IN 5 DAYS Laboratory Tests 08/31/18 08/31/18 09/02/18 22:19 22:19 05:37 WBC 12.5 H Hgb 9.4 L Plt Count 476 H INR Creatinine 1.37 H Iron 17 L TIBC 200 L % Saturation Ferritin 09/02/18 09/15/18 09/15/18 05:37 22:14 22:14 WBC 10.9 H Hgb 9.3 L Plt Count INR 2.0 Creatinine Iron TIBC % Saturation Ferritin 215.18 09/16/18 09/17/18 09/17/18 04:32 05:46 12:32 WBC 10.3 Hgb 9.1 L 9.1 L Plt Count INR 2.2 Creatinine Iron TIBC % Saturation Ferritin 09/18/18 09/19/18 09/19/18 04:08 04:13 08:26 WBC 10.5 Hgb 9.3 L Plt Count INR 2.3 2.3 Creatinine Iron TIBC % Saturation Ferritin 09/19/18 09/19/18 09/20/18 08:26 08:26 04:30 WBC Hgb Plt Count INR 2.5 Creatinine Iron 38 L TIBC 233 L % Saturation 16 Ferritin 347.69 H Phys Exam - Physical Examination alert, responsive HEENT: PERRLA, sclera anicteric, oral pharynx no lesions Neck: no nodes, no JVD, supple, full ROM Respiratory: no wheezing, no rales, no rhonchi, clear to auscultation bilateral tachycardic S1, S2 Cardiovascular: no significant murmur, no rub, gallop mild TTP diffusely Gastrointestinal: soft, positive bowel sounds Musculoskeletal: no edema, pulses present Neurological: normal sensation, moves all 4 limbs Skin: normal turgor, cap refill <2 seconds Dx/Plan (1) Acute respiratory failure with hypoxia Code(s): J96.01 - ACUTE RESPIRATORY FAILURE WITH HYPOXIA Status: Acute Comment: Due to Pulmonary metastasis superimposed on PE, continue Eliquis 5mg BID, O2 prn (2) Endometrial cancer Code(s): C54.1 - MALIGNANT NEOPLASM OF ENDOMETRIUM Status: Acute Comment: Stage IV process, palliative chemo initiated, poor prognosis, appreciate palliative care assistance (3) Nausea & vomiting Code(s): R11.2 - NAUSEA WITH VOMITING, UNSPECIFIED Status: Acute Comment: Persistent, Multifactorial, antiemetics, add Scopolamine patch, IVF's (4) Physical deconditioning Code(s): R53.81 - OTHER MALAISE Status: Chronic (5) Pulmonary emboli Code(s): I26.99 - OTHER PULMONARY EMBOLISM WITHOUT ACUTE COR PULMONALE Status : Acute Comment: Continue Eliquis - Plan PT/OT, social media director, out of bed/ambulate Continue supportive mgmt -: Continue IVF's -: Trial Phenergan 25mg IV q6h prn -: OOB/chair -: Continue Scopolamine patch * AM lab: BMP, CBC
[2018-09-23] MEDS: Mirtazapine 15 MG Soltab PO SCH (21:00)
[2018-09-24] MEDS: Metoclopramide HCl 10 MG/2 ML VIAL IVP SCH ×3 (06:37→17:17)
[2018-09-24 06:56] LABS: Hemoglobin 8.8 g/dL (12.0-16.0); Mean Corpuscular HGB CONC 31.3 g/dL (32.0-36.0); Mean Corpuscular Hemoglobin 23.4 pg (27.0-31.0); Mean Corpuscular Volume 74.9 fL (78.0-98.0); Mean Platelet Volume 11.4 fL (7.4-10.4); Platelet Count 211 thou/uL (130-400); RBC Distribution Width 18.8 % (11.5-14.5); Red Blood Cell (RBC) Count 3.78 mill/uL (4.20-5.40); White Blood Cell (WBC) Count 18.9 thou/uL (4.8-10.8)
[2018-09-24] MEDS ORDERED: Morphine 2 MG/ML SYRINGE SLOW IVP SCH (07:00)
--- NOTE | 2018-09-24 07:19 | PDOC.PN ---
- Subjective Encounter Start Date: 09/24/18 Encounter Start Time: 07:17 Subjective: severe pelvic pain. nausea vomiting - Objective Resuscitation Status - Order Detail: 09/16/18 08:14 Resuscitation Status Routine Resuscitation Status: FULL: Full Resuscitation MAR Reviewed: Yes Vital Signs & Weight: Vital Signs (12 hours) Temp Pulse Resp BP Pulse Ox 09/23/18 20:00 97.6 F 101 H 20 131/68 94 L Weight Admit Weight 212 lb 12.8 oz Weight 212 lb 12.8 oz I&O: 09/23/18 09/24/18 09/25/18 06:59 06:59 06:59 Intake Total 900 1320 Balance 900 1320 Result Diagrams: 09/24/18 06:30 09/21/18 05:26 Phys Exam - Physical Examination Neck: no JVD Respiratory: clear to auscultation bilateral Cardiovascular: RRR, no significant murmur Gastrointestinal: soft, non-tender Musculoskeletal: edema present Dx/Plan (1) Acute respiratory failure with hypoxia Code(s): J96.01 - ACUTE RESPIRATORY FAILURE WITH HYPOXIA Status: Resolved Comment: Due to Pulmonary metastasis superimposed on PE, continue Eliquis 5mg BID, O2 prn (2) Palliative care encounter Code(s): Z51.5 - ENCOUNTER FOR PALLIATIVE CARE Status: Acute (3) Pleural effusion Code(s): J90 - PLEURAL EFFUSION, NOT ELSEWHERE CLASSIFIED Status: Acute (4) Chronic anticoagulation Code(s): Z79.01 - [employer] (CURRENT) USE OF ANTICOAGULANTS Status: Acute Comment: Resume Eliquis 5mg BID (5) Endometrial cancer Code(s): C54.1 - MALIGNANT NEOPLASM OF ENDOMETRIUM Status: Acute Comment: Stage IV process, palliative chemo initiated, poor prognosis, appreciate palliative care assistance (6) Nausea & vomiting Code(s): R11.2 - NAUSEA WITH VOMITING, UNSPECIFIED Status: Acute Qualifiers: Vomiting type: unspecified Vomiting Intractability: unspecified Qualified Code(s): R11.2 - Nausea with vomiting, unspecified Comment: Persistent, Multifactorial, antiemetics, add Scopolamine patch, IVF's (7) Pulmonary emboli Code(s): I26.99 - OTHER PULMONARY EMBOLISM WITHOUT ACUTE COR PULMONALE Status : Acute Qualifiers: Pulmonary embolism type: unspecified Chronicity: acute Acute cor pulmonale presence: without acute cor pulmonale Qualified Code(s): I26.99 - Other pulmonary embolism without acute cor pulmonale Comment: Continue Eliquis (8) Hypertension Code(s): I10 - ESSENTIAL (PRIMARY) HYPERTENSION Status: Chronic Qualifiers: Hypertension type: essential hypertension Qualified Code(s): I10 - Essential (primary) hypertension - Plan unfortunate and difficult situation. unrelieved paln complicated with N/V -: rpt 2v abd. cont reglan, etc -: cont eliquis -: IV morphine for breakthru pain * .
[2018-09-24 07:22] LABS: Anion Gap 20 mmol/L (10-20); BUN (Urea Nitrogen) 20 mg/dL (9.8-20.1); Calc. Creatinine Clearance 113 mL/min (70-130); Calcium 8.5 mg/dL (7.8-10.44); Carbon Dioxide 20 mmol/L (23-31); Chloride 116 mmol/L (98-107); Estimated GFR-MDRD 89; Glucose 104 mg/dL (80-115); Potassium 4.3 mmol/L (3.5-5.1); Sodium 152 mmol/L (136-145)
[2018-09-24 08:27] LABS: Band 7 % (5-11); Hypochromia SLIGHT = 6-15 cells (100X) (0-5/hpf); Lymphocytes 9 % (21-51); MDiff Complete? YES; Microcytosis SLIGHT = 6-15 cells (100X) (0-5/hpf); Monocytes 2 % (0-10); Neutrophil 82 % (42-75); Polychromasia SLIGHT = 2-3 cells (100X) (0-2/hpf)
[2018-09-24 08:28] LABS: Ovalocytes SLIGHT = 2-5 cells (100X) (0-1/hpf)
[2018-09-24] MEDS: Fluticasone Propionate Nasal Spray 16 gm Bottle NASAL SCH (09:00)
[2018-09-24] MEDS: Senokot S 8.6-50 MG TAB PO SCH ×2 (09:02→21:00)
[2018-09-24] MEDS: Polyethylene Glycol 3350 17 GM Packet PO SCH (09:02)
[2018-09-24] MEDS: cloNIDine 0.1 MG TAB PO SCH ×2 (09:03→21:00)
[2018-09-24] MEDS: Sodium Chloride 0.9% 1,000 ML IV SCH ×2 (09:13→18:55)
[2018-09-24] MEDS ORDERED: Prochlorperazine 10 MG/2 ML VIAL IVP PRN (09:49)
[2018-09-24] MEDS ORDERED: Ondansetron HCl/PF 10 MG in Sodium Chloride 0.9% 50 ML IVPB PRN (09:50)
--- NOTE | 2018-09-24 11:07 | RAD ---
XR Abdomen 2 View 2 view abdomen series CLINICAL INDICATION: Pain, ileus FINDINGS: Lung bases reveal multifocal nodular opacities. No free air. Calcifications of the right abdomen indicate cholelithiasis There is a nonspecific bowel gas pattern, with a paucity of bowel gas demonstrated. No acute osseous pathology. IMPRESSION: Nonspecific bowel gas pattern. Cholelithiasis. Pulmonary metastatic disease.
--- NOTE | 2018-09-24 13:23 | PDOC.EVN ---
Event Note - Event Note Event Note: 2 view abd unrevealing. oncology note apprciated, cont iv fk\luiids, antiemetics
[2018-09-24] MEDS: Apixaban 5 MG TAB PO SCH ×2 (13:59→20:49)
[2018-09-24] MEDS: Calcium Carbonate + Vit D 1 TAB PO SCH (14:00)
[2018-09-24] MEDS: Tamsulosin HCl 0.4 MG CAP PO SCH (14:01)
[2018-09-24] MEDS: Morphine ER 30 MG TAB PO SCH ×2 (14:01→21:00)
[2018-09-24] MEDS: Morphine 4 MG/ML VIAL SLOW IVP PRN ×2 (17:12→22:22)
[2018-09-24] MEDS: Scopolamine 1.5 mg/72 hour Patch TD SCH (20:49)
[2018-09-24] MEDS: Mirtazapine 15 MG Soltab PO SCH (21:00)
[2018-09-24] MEDS: Ondansetron PF 4 MG/2 ML Vial IVP PRN (22:22)
[2018-09-25] MEDS: Metoclopramide HCl 10 MG/2 ML VIAL IVP SCH ×4 (00:19→17:44)
[2018-09-25] MEDS: Morphine 4 MG/ML VIAL SLOW IVP PRN ×4 (02:36→19:49)
[2018-09-25 05:12] LABS: Anion Gap 14 mmol/L (10-20); BUN (Urea Nitrogen) 22 mg/dL (9.8-20.1); Calc. Creatinine Clearance 120 mL/min (70-130); Calcium 7.9 mg/dL (7.8-10.44); Carbon Dioxide 20 mmol/L (23-31); Chloride 124 mmol/L (98-107); Estimated GFR-MDRD Greater than 90; Glucose 103 mg/dL (80-115); Potassium 3.8 mmol/L (3.5-5.1); Sodium 154 mmol/L (136-145)
--- NOTE | 2018-09-25 10:08 | PDOC.PN ---
- Subjective Encounter Start Date: 09/25/18 Encounter Start Time: 10:06 Subjective: rates pain as 10 - Objective Resuscitation Status - Order Detail: 09/16/18 08:14 Resuscitation Status Routine Resuscitation Status: FULL: Full Resuscitation MAR Reviewed: Yes Vital Signs & Weight: Vital Signs (12 hours) Temp Pulse Resp BP Pulse Ox 09/25/18 08:33 97.6 F 95 18 134/64 93 L Weight Admit Weight 212 lb 12.8 oz Weight 212 lb 12.8 oz I&O: 09/24/18 09/25/18 09/26/18 06:59 06:59 06:59 Intake Total 1320 1300 Output Total 400 Balance 1320 900 Result Diagrams: 09/24/18 06:30 09/25/18 04:20 Phys Exam - Physical Examination Constitutional: NAD Neck: no JVD Respiratory: clear to auscultation bilateral Cardiovascular: RRR, no significant murmur Gastrointestinal: soft, positive bowel sounds Musculoskeletal: edema present Dx/Plan (1) Acute respiratory failure with hypoxia Code(s): J96.01 - ACUTE RESPIRATORY FAILURE WITH HYPOXIA Status: Resolved Comment: Due to Pulmonary metastasis superimposed on PE, continue Eliquis 5mg BID, O2 prn (2) Palliative care encounter Code(s): Z51.5 - ENCOUNTER FOR PALLIATIVE CARE Status: Acute (3) Pleural effusion Code(s): J90 - PLEURAL EFFUSION, NOT ELSEWHERE CLASSIFIED Status: Acute (4) Chronic anticoagulation Code(s): Z79.01 - [facility] (CURRENT) USE OF ANTICOAGULANTS Status: Acute Comment: Resume Eliquis 5mg BID (5) Endometrial cancer Code(s): C54.1 - MALIGNANT NEOPLASM OF ENDOMETRIUM Status: Acute Comment: Stage IV process, palliative chemo initiated, poor prognosis, appreciate palliative care assistance (6) Nausea & vomiting Code(s): R11.2 - NAUSEA WITH VOMITING, UNSPECIFIED Status: Acute Qualifiers: Vomiting type: unspecified Vomiting Intractability: unspecified Qualified Code(s): R11.2 - Nausea with vomiting, unspecified Comment: Persistent, Multifactorial, antiemetics, add Scopolamine patch, IVF's (7) Pulmonary emboli Code(s): I26.99 - OTHER PULMONARY EMBOLISM WITHOUT ACUTE COR PULMONALE Status : Acute Qualifiers: Pulmonary embolism type: unspecified Chronicity: acute Acute cor pulmonale presence: without acute cor pulmonale Qualified Code(s): I26.99 - Other pulmonary embolism without acute cor pulmonale Comment: Continue Eliquis (8) Hypertension Code(s): I10 - ESSENTIAL (PRIMARY) HYPERTENSION Status: Chronic Qualifiers: Hypertension type: essential hypertension Qualified Code(s): I10 - Essential (primary) hypertension (9) Hypernatremia Code(s): E87.0 - HYPEROSMOLALITY AND HYPERNATREMIA Status: Acute - Plan change iv fluids to D5 1/4 NS. -: placement -: cont po/ IV MS for now * .
[2018-09-25] MEDS: Apixaban 5 MG TAB PO SCH ×2 (10:14→10:22)
[2018-09-25] MEDS: cloNIDine 0.1 MG TAB PO SCH ×2 (10:15→20:29)
[2018-09-25] MEDS: Calcium Carbonate + Vit D 1 TAB PO SCH (10:15)
[2018-09-25] MEDS: Senokot S 8.6-50 MG TAB PO SCH ×2 (10:16→20:30)
[2018-09-25] MEDS: Morphine ER 30 MG TAB PO SCH ×2 (10:16→20:29)
[2018-09-25] MEDS: Tamsulosin HCl 0.4 MG CAP PO SCH (10:16)
[2018-09-25] MEDS: Polyethylene Glycol 3350 17 GM Packet PO SCH (10:16)
[2018-09-25] MEDS: Fluticasone Propionate Nasal Spray 16 gm Bottle NASAL SCH (10:20)
[2018-09-25] MEDS: D5 1/4 NS 1,000 ML IV SCH ×2 (11:05→19:48)
[2018-09-25] MEDS: Mirtazapine 15 MG Soltab PO SCH (20:29)
[2018-09-26] MEDS: Morphine 4 MG/ML VIAL SLOW IVP PRN ×5 (00:14→20:06)
[2018-09-26] MEDS: Metoclopramide HCl 10 MG/2 ML VIAL IVP SCH ×4 (00:14→17:57)
[2018-09-26] MEDS: D5 1/4 NS 1,000 ML IV SCH ×2 (04:53→16:12)
[2018-09-26] MEDS ORDERED: Morphine IR Tab 15 MG TAB PO PRN (08:02)
[2018-09-26] MEDS: Enoxaparin Sodium 100 MG/ML SYRINGE SC SCH (08:50)
[2018-09-26] MEDS ORDERED: Enoxaparin Sodium 80 MG/0.8 ML SYRINGE SC SCH (09:00)
[2018-09-26] MEDS ORDERED: Aluminum & Magnesium Hydroxide 60 ML, diphenhydrAMINE 150 MG, Lidocaine 2% Viscous Solu... SSW PRN (11:24)
--- NOTE | 2018-09-26 11:26 | PDOC.PN ---
- Subjective Encounter Start Date: 09/26/18 Encounter Start Time: 11:25 Subjective: sore throat, severe pelvic pain, poor intake - Objective Resuscitation Status - Order Detail: 09/16/18 08:14 Resuscitation Status Routine Resuscitation Status: FULL: Full Resuscitation Vital Signs & Weight: Vital Signs (12 hours) Temp Pulse Resp BP Pulse Ox 09/26/18 08:07 97.5 F L 110 H 18 136/78 98 Weight Admit Weight 212 lb 12.8 oz Weight 212 lb 12.8 oz I&O: 09/25/18 09/26/18 09/27/18 06:59 06:59 06:59 Intake Total 1300 2150 Output Total 400 Balance 900 2150 Result Diagrams: 09/24/18 06:30 09/25/18 04:20 Phys Exam - Physical Examination pos thrush Neck: no JVD Respiratory: clear to auscultation bilateral Cardiovascular: RRR, no significant murmur Gastrointestinal: soft, positive bowel sounds Musculoskeletal: edema present Dx/Plan (1) Acute respiratory failure with hypoxia Code(s): J96.01 - ACUTE RESPIRATORY FAILURE WITH HYPOXIA Status: Resolved Comment: Due to Pulmonary metastasis superimposed on PE, continue Eliquis 5mg BID, O2 prn (2) Palliative care encounter Code(s): Z51.5 - ENCOUNTER FOR PALLIATIVE CARE Status: Acute (3) Pleural effusion Code(s): J90 - PLEURAL EFFUSION, NOT ELSEWHERE CLASSIFIED Status: Acute (4) Chronic anticoagulation Code(s): Z79.01 - [facility] (CURRENT) USE OF ANTICOAGULANTS Status: Acute Comment: Resume Eliquis 5mg BID (5) Endometrial cancer Code(s): C54.1 - MALIGNANT NEOPLASM OF ENDOMETRIUM Status: Acute Comment: Stage IV process, palliative chemo initiated, poor prognosis, appreciate palliative care assistance (6) Nausea & vomiting Code(s): R11.2 - NAUSEA WITH VOMITING, UNSPECIFIED Status: Acute Qualifiers: Vomiting type: unspecified Vomiting Intractability: unspecified Qualified Code(s): R11.2 - Nausea with vomiting, unspecified Comment: Persistent, Multifactorial, antiemetics, add Scopolamine patch, IVF's (7) Pulmonary emboli Code(s): I26.99 - OTHER PULMONARY EMBOLISM WITHOUT ACUTE COR PULMONALE Status : Acute Qualifiers: Pulmonary embolism type: unspecified Chronicity: acute Acute cor pulmonale presence: without acute cor pulmonale Qualified Code(s): I26.99 - Other pulmonary embolism without acute cor pulmonale Comment: Continue Eliquis (8) Hypertension Code(s): I10 - ESSENTIAL (PRIMARY) HYPERTENSION Status: Chronic Qualifiers: Hypertension type: essential hypertension Qualified Code(s): I10 - Essential (primary) hypertension (9) Hypernatremia Code(s): E87.0 - HYPEROSMOLALITY AND HYPERNATREMIA Status: Acute - Plan speech tx pending -: [facility] [employer] [facility] -: post chemotx -: patient and family express non-acceptance of pronosis, patient denies failu -: to cooperate with PT despite observations of staff.difficult care situation * .
[2018-09-26] MEDS: Fluticasone Propionate Nasal Spray 16 gm Bottle NASAL SCH (12:24)
[2018-09-26] MEDS: Polyethylene Glycol 3350 17 GM Packet PO SCH (12:24)
[2018-09-26] MEDS: cloNIDine 0.1 MG TAB PO SCH ×2 (12:24→20:12)
[2018-09-26] MEDS: Morphine ER 30 MG TAB PO SCH ×2 (12:24→20:12)
[2018-09-26] MEDS: Calcium Carbonate + Vit D 1 TAB PO SCH (12:24)
[2018-09-26] MEDS: Tamsulosin HCl 0.4 MG CAP PO SCH (12:25)
[2018-09-26] MEDS: Senokot S 8.6-50 MG TAB PO SCH ×2 (12:25→20:12)
[2018-09-26] MEDS: Mirtazapine 15 MG Soltab PO SCH (20:12)
[2018-09-27] MEDS: D5 1/4 NS 1,000 ML IV SCH ×3 (00:02→23:11)
[2018-09-27] MEDS: Morphine 4 MG/ML VIAL SLOW IVP PRN ×5 (00:02→21:20)
[2018-09-27] MEDS: Metoclopramide HCl 10 MG/2 ML VIAL IVP SCH ×4 (00:06→18:17)
--- NOTE | 2018-09-27 08:58 | PDOC.PN ---
- Subjective Encounter Start Date: 09/27/18 Encounter Start Time: 08:56 Subjective: sleepy, post morphine - Objective Resuscitation Status - Order Detail: 09/16/18 08:14 Resuscitation Status Routine Resuscitation Status: FULL: Full Resuscitation MAR Reviewed: Yes Vital Signs & Weight: Vital Signs (12 hours) Temp Pulse Resp BP Pulse Ox 09/27/18 07:23 98.3 F 117 H 16 168/78 H 92 L Weight Admit Weight 212 lb 12.8 oz Weight 212 lb 12.8 oz I&O: 09/26/18 09/27/18 09/28/18 06:59 06:59 06:59 Intake Total 2149 1899 Balance 2149 1899 Result Diagrams: 09/24/18 06:30 09/25/18 04:20 Phys Exam - Physical Examination Neck: no JVD Respiratory: clear to auscultation bilateral Cardiovascular: RRR, no significant murmur Gastrointestinal: soft, positive bowel sounds Musculoskeletal: edema present Dx/Plan (1) Acute respiratory failure with hypoxia Code(s): J96.01 - ACUTE RESPIRATORY FAILURE WITH HYPOXIA Status: Resolved Comment: Due to Pulmonary metastasis superimposed on PE, continue Eliquis 5mg BID, O2 prn (2) Palliative care encounter Code(s): Z51.5 - ENCOUNTER FOR PALLIATIVE CARE Status: Acute (3) Pleural effusion Code(s): J90 - PLEURAL EFFUSION, NOT ELSEWHERE CLASSIFIED Status: Acute (4) Chronic anticoagulation Code(s): Z79.01 - [facility] (CURRENT) USE OF ANTICOAGULANTS Status: Acute Comment: Resume Eliquis 5mg BID (5) Endometrial cancer Code(s): C54.1 - MALIGNANT NEOPLASM OF ENDOMETRIUM Status: Acute Comment: Stage IV process, palliative chemo initiated, poor prognosis, appreciate palliative care assistance (6) Nausea & vomiting Code(s): R11.2 - NAUSEA WITH VOMITING, UNSPECIFIED Status: Acute Qualifiers: Vomiting type: unspecified Vomiting Intractability: unspecified Qualified Code(s): R11.2 - Nausea with vomiting, unspecified Comment: Persistent, Multifactorial, antiemetics, add Scopolamine patch, IVF's (7) Pulmonary emboli Code(s): I26.99 - OTHER PULMONARY EMBOLISM WITHOUT ACUTE COR PULMONALE Status : Acute Qualifiers: Pulmonary embolism type: unspecified Chronicity: acute Acute cor pulmonale presence: without acute cor pulmonale Qualified Code(s): I26.99 - Other pulmonary embolism without acute cor pulmonale Comment: Continue Eliquis (8) Hypertension Code(s): I10 - ESSENTIAL (PRIMARY) HYPERTENSION Status: Chronic Qualifiers: Hypertension type: essential hypertension Qualified Code(s): I10 - Essential (primary) hypertension (9) Hypernatremia Code(s): E87.0 - HYPEROSMOLALITY AND HYPERNATREMIA Status: Acute - Plan discussion with family. again declines hospice. want patient to have feedin -: tube. in conversation with speech tx , pt did not attempt to swallow during -: testing. will start with dobhoff and enteral nutrition. difficult situation -: with patient with terminal illness and family and patient reluctant to -: accept situation. cont MS for pain * .
[2018-09-27 09:39] LABS: ALT (SGPT) 32 U/L (8-55); AST (SGOT) 35 U/L (5-34); Albumin 3.1 g/dL (3.4-4.8); Alkaline Phosphatase 140 U/L (40-150); Anion Gap 18 mmol/L (10-20); BUN (Urea Nitrogen) 18 mg/dL (9.8-20.1); Bilirubin, Total 0.8 mg/dL (0.2-1.2); Calc. Creatinine Clearance 110 mL/min (70-130); Calcium 8.4 mg/dL (7.8-10.44); Carbon Dioxide 15 mmol/L (23-31); Chloride 118 mmol/L (98-107); Estimated GFR-MDRD 87; Globulin 3.1 g/dL (2.4-3.5); Glucose 117 mg/dL (80-115); Potassium 3.6 mmol/L (3.5-5.1); Protein, Total 6.2 g/dL (6.0-8.3); Sodium 147 mmol/L (136-145)
[2018-09-27] MEDS: Enoxaparin Sodium 100 MG/ML SYRINGE SC SCH (11:47)
[2018-09-27] MEDS: Tamsulosin HCl 0.4 MG CAP PO SCH (11:49)
[2018-09-27] MEDS: Polyethylene Glycol 3350 17 GM Packet PO SCH (11:50)
[2018-09-27] MEDS: Senokot S 8.6-50 MG TAB PO SCH ×2 (11:50→19:53)
[2018-09-27] MEDS: cloNIDine 0.1 MG TAB PO SCH ×2 (11:50→19:52)
[2018-09-27] MEDS: Fluticasone Propionate Nasal Spray 16 gm Bottle NASAL SCH (11:50)
[2018-09-27] MEDS: Calcium Carbonate + Vit D 1 TAB PO SCH (11:51)
--- NOTE | 2018-09-27 11:52 | RAD ---
ABDOMEN 1 VIEW: HISTORY: Dobbhoff tube placement evaluation. FINDINGS: Dobbhoff tube is noted in place with the tip extending into the region of the antrum body of the stom ach. Multiple pulmonary metastases. Bilateral pleural effusions. IMPRESSION: Dobbhoff tube in place. Bilateral pleural effusions and pulmonary metastases. POS: C
[2018-09-27] MEDS: Morphine ER 30 MG TAB PO SCH ×2 (11:53→19:53)
--- NOTE | 2018-09-27 16:56 | RAD ---
EXAM: XR Chest 1 View Portable PROVIDED CLINICAL HISTORY: Shortness of breath COMPARISON: 09/16/2018 FINDINGS: Cardiac and mediastinal silhouette is unchanged in appearance. Diffuse bilateral pulmonary nodules ap pear similar. Blunting of each costophrenic angle may reflect pleural fluid. There is no evidence for pneumothorax. Enteric catheter is noted, the tip of which is below the diaphragm and likely overl ies the right mid abdomen. IMPRESSION: Diffuse bilateral pulmonary nodules and blunting of each costophrenic angle, appearing similar to the prior study.
--- NOTE | 2018-09-27 17:37 | PDOC.EVN ---
Event Note - Event Note Event Note: no real change, feeding tube started. CXR basically unchanged, ABG mild metabolic acidosis, no CO2 retention. . will do blood c&S, urine C&S- start broad spectrum antibx. family steadfast on full code status.
[2018-09-27 17:38] LABS: Actual Bicarbonate (HCO3a) 14.3 mEq/L (22-28); Base Excess (BEa) -10.5 mEq/L (-2.0 to +3.0); CO2 Tension 27.8 mmHg (35.0-45.0); Hemoglobin (Hb) 8.4 g/dL (12.0-16.0); O2 Tension (PaO2) 77.2 mmHg (> 80.0); pH, Arterial 7.33 (7.35-7.45)
[2018-09-27 17:39] LABS: Analyzer IN Cardio OR; Carboxyhemoglobin (COHb) 0.4 gm% (0.0-3.0); Puncture Site RRA
[2018-09-27] MEDS: Mirtazapine 15 MG Soltab PO SCH (19:53)
[2018-09-27] MEDS: Scopolamine 1.5 mg/72 hour Patch TD SCH (20:22)
[2018-09-27] MEDS: Cefepime 2 GM in Sodium Chloride 0.9% 100 ML IVPB SCH (22:54)
[2018-09-28] MEDS: Morphine 4 MG/ML VIAL SLOW IVP PRN ×5 (02:06→16:49)
[2018-09-28] MEDS: Metoclopramide HCl 10 MG/2 ML VIAL IVP SCH ×4 (02:11→16:53)
[2018-09-28 08:22] VITALS: BP 88/50; TEMP 97.9
[2018-09-28] MEDS: Fluticasone Propionate Nasal Spray 16 gm Bottle NASAL SCH (10:43)
[2018-09-28] MEDS: Senokot S 8.6-50 MG TAB PO SCH (10:44)
[2018-09-28] MEDS: Tamsulosin HCl 0.4 MG CAP PO SCH (10:44)
[2018-09-28] MEDS: Polyethylene Glycol 3350 17 GM Packet PO SCH (10:45)
[2018-09-28] MEDS: Calcium Carbonate + Vit D 1 TAB PO SCH (10:48)
[2018-09-28] MEDS: cloNIDine 0.1 MG TAB PO SCH (10:48)
[2018-09-28] MEDS: D5 1/4 NS 1,000 ML IV SCH (13:22)
[2018-09-28] MEDS: Lorazepam 2 MG/ML VIAL SLOW IVP PRN ×2 (13:22→16:49)
[2018-09-28] MEDS: Enoxaparin Sodium 100 MG/ML SYRINGE SC SCH (13:26)
--- NOTE | 2018-09-28 13:27 | PDOC.PN ---
- Subjective Encounter Start Date: 09/28/18 Encounter Start Time: 13:24 Subjective: pt asleep and no family at bedside -: chart reviewed and care discussed w RN -: Pt made DNR last night & comfort care only this morning - Objective Resuscitation Status - Order Detail: 09/16/18 08:14 Resuscitation Status Routine Resuscitation Status: DNAR: NO Resuscitation Discussed with: as per POA and family decision MAR Reviewed: Yes Vital Signs & Weight: Vital Signs (12 hours) Temp Pulse Resp BP Pulse Ox 09/28/18 08:00 97.9 F 115 H 22 H 88/50 L 96 09/28/18 04:05 94 L 09/28/18 03:37 97.7 F 119 H 28 H 119/59 L 94 L Weight Admit Weight 212 lb 12.8 oz Weight 212 lb 12.8 oz I&O: 09/27/18 09/28/18 09/29/18 06:59 06:59 06:59 Intake Total 1900 1045 Balance 1900 1045 Result Diagrams: 09/24/18 06:30 09/27/18 09:09 Additional Labs: Microbiology 09/16/18 11:59 Venous blood - Left Hand Blood Culture - Final NO GROWTH IN 5 DAYS 09/16/18 11:59 Venous blood - Left Arm Blood Culture - Final NO GROWTH IN 5 DAYS 09/27/18 18:46 Venous blood - Left Hand Blood Culture - Preliminary Specimen has been received and culture in progress. No Growth to date. 09/27/18 18:07 Venous blood - Left Hand Blood Culture - Preliminary Specimen has been received and culture in progress. No Growth to date. Phys Exam - Physical Examination Constitutional: NAD sleeping peacefully HEENT: moist MMs Dobhoff in place Neck: no nodes, no JVD, supple, full ROM Respiratory: no wheezing, no rales, no rhonchi, clear to auscultation bilateral Cardiovascular: RRR, no significant murmur Gastrointestinal: soft Musculoskeletal: no edema, pulses present Skin: no rash Dx/Plan (1) Acute respiratory failure with hypoxia Code(s): J96.01 - ACUTE RESPIRATORY FAILURE WITH HYPOXIA Status: Resolved Comment: Due to Pulmonary metastasis superimposed on PE, continue Eliquis 5mg BID, O2 prn (2) Hypotension Status: Acute Comment: Comfort care only. Empiric ABx and Cx taken but do not suspect infectious etiology. cont IVF and supportive care (3) Pleural effusion due to another disorder Code(s): J90 - PLEURAL EFFUSION, NOT ELSEWHERE CLASSIFIED Status: Acute Comment: Malignant suspected due to lung mets from Endometrial CA (4) Hypernatremia Code(s): E87.0 - HYPEROSMOLALITY AND HYPERNATREMIA Status: Acute (5) Chronic anticoagulation Code(s): Z79.01 - [facility] (CURRENT) USE OF ANTICOAGULANTS Status: Acute Comment: was on Eliquis 5mg BID (6) Endometrial cancer Code(s): C54.1 - MALIGNANT NEOPLASM OF ENDOMETRIUM Status: Acute Comment: Stage IV process, palliative chemo initiated but now made Comfort care only poor prognosis, appreciate palliative care assistance (7) Pulmonary emboli Code(s): I26.99 - OTHER PULMONARY EMBOLISM WITHOUT ACUTE COR PULMONALE Status : Acute Qualifiers: Pulmonary embolism type: unspecified Chronicity: acute Acute cor pulmonale presence: without acute cor pulmonale Qualified Code(s): I26.99 - Other pulmonary embolism without acute cor pulmonale Comment: off of Eliquis - Plan DVT proph w/SCDs comfort care measures * . Review of Systems - Medications/Allergies Allergies/Adverse Reactions: Allergies Allergy/AdvReac Type Severity Reaction Status Date / Time red dye Allergy Verified 09/16/18 02:34 codeine AdvReac Hives Verified 09/16/18 02:34 Medications: Current Medications Albuterol/Ipratropium (Duoneb) 3 ml NEB H5PP-LP PRN PRN Reason: SOB &/or Wheezing Enoxaparin Sodium (Lovenox) 100 mg SC 0900 VANESA Last Admin: 09/27/18 11:47 Dose: 100 mg Fluticasone Propionate (Flonase Nasal Tiger) 0 gm NASAL DAILY VANESA Last Admin: 09/28/18 10:43 Dose: Not Given Hydralazine HCl (Apresoline) 10 mg SLOW IVP Q4H PRN PRN Reason: SBP > 180 and HR < 70 Ondansetron HCl 10 mg/ Sodium (Chloride) 55 mls @ 220 mls/hr IVPB Q6H PRN PRN Reason: Nausea Last Admin: 09/24/18 13:21 Dose: 55 mls Dextrose/Sodium Chloride (D5 1/4 Ns) 1,000 mls @ 100 mls/hr IV .Q10H [facility] Last Admin: 09/28/18 13:22 Dose: 1,000 mls Cefepime HCl 2 gm/ Sodium (Chloride) 100 mls @ 200 mls/hr IVPB Q12HR [facility] Last Admin: 09/27/18 22:54 Dose: 100 mls Levofloxacin 750 mg/ Device 150 mls @ 100 mls/hr IVPB Q24HR [facility] Last Admin: 09/27/18 20:24 Dose: 150 mls Lorazepam (Ativan) 2 mg SLOW IVP Q4H PRN PRN Reason: Anxiety/Agitation Last Admin: 09/28/18 13:22 Dose: 2 mg Metoclopramide HCl (Reglan) 10 mg IVP Q6HR [facility] Last Admin: 09/28/18 05:42 Dose: Not Given Morphine Sulfate (Morphine) 4 mg SLOW IVP Q2H PRN PRN Reason: Pain Last Admin: 09/28/18 12:24 Dose: 4 mg Ondansetron HCl (Zofran) 4 mg IVP Q6H PRN PRN Reason: Nausea/Vomiting Last Admin: 09/24/18 22:22 Dose: 4 mg Prochlorperazine Edisylate (Compazine) 10 mg IVP Q6H PRN PRN Reason: Nausea/Vomiting Scopolamine (Transderm Scop) 1.5 mg TD Q3D [facility] Last Admin: 09/27/18 20:22 Dose: 1.5 mg
[2018-09-28] MEDS: Cefepime 2 GM in Sodium Chloride 0.9% 100 ML IVPB SCH (13:28)
[2018-09-28] MEDS: Morphine ER 30 MG TAB PO SCH (16:50)
--- NOTE | 2018-09-28 17:10 | EKG ---
Test Reason : Blood Pressure : / mmHG Vent. Rate : 130 BPM Atrial Rate : 130 BPM P-R Int : 126 ms QRS Dur : 068 ms QT Int : 304 ms P-R-T Axes : 049 024 003 degrees QTc Int : 447 ms Sinus tachycardia with Premature atrial complexes Cannot rule out Anterior infarct , age undetermined Abnormal ECG When compared with ECG of 16-SEP-2018 00:40, (Unconfirmed) No significant change was found Confirmed by DR. Jj TUTTLE ([id number]) on 09/28/2018 5:09:44 PM Referred By: WILBERT Confirmed By:DR. Jj TUTTLE
--- NOTE | 2018-10-01 10:22 | DIS ---
DATE OF ADMISSION: 09/16/2018 DATE OF DISCHARGE: 09/28/2018 DATE OF : 09/28/2018. DIAGNOSES AT THE TIME OF : 1. Acute respiratory hypoxic failure. 2. Hypotension. 3. Malignant pleural effusion. 4. Hyponatremia. 5. Chronic anticoagulation. 6. Metastatic endometrial cancer with metastasis to lungs. 7. Recent pulmonary embolism, on anticoagulation. IN-HOUSE CONSULTATION: 1. Palliative Care Team. 2. Oncology, Dr. Chan. 3. Pulmonary Medicine, Dr. Taylor. PROCEDURES DONE IN THE HOSPITAL: 1. Abdominal x-ray on 09/16/2018, which does not show any acute intraabdominal abnormality. 2. Transthoracic echocardiogram on 09/16/2018, which is a suboptimal exam, but shows EF of 55% to 60%. 3. CT scan of the chest on 09/17/2018, which shows diffuse pulmonary metastatic disease and bilateral pleural effusion with adjacent atelectasis. 4. Repeat abdominal x-rays on 09/27/2018, which shows Dobhoff tube in place. 5. Repeat chest x-ray on 09/27/2018, which shows diffuse bilateral pulmonary nodules and blunting of each costophrenic angle similar to prior study. HISTORY OF PRESENTING ILLNESS: Ms. Farley was a 63-year-old female with known history of metastatic endometrial cancer to lung and a recent diagnosis of pulmonary embolism, who presented to the emergency room with complaints of shortness of breath. She was recently seen and treated at [facility] and was started on Eliquis for her pulmonary embolism. Upon presentation, she was hemodynamically stable with a blood pressure of 133/64, heart rate of 94, respirations of 22. She was empirically started on antibiotics for possible healthcare associated pneumonia. Chest x-ray and echocardiogram were ordered, and Oncology was consulted given her history of endometrial cancer. Please see admission history and physical dictated by Dr. Carrillo Alcaraz on 09/16/2018 for full details. Please note that I have seen this patient only on her last day of hospitalization, the day she . HOSPITAL COURSE: Pulmonary Medicine was consulted as the chest x-ray suggested pleural effusion. Dr. Taylor saw the patient. A CT scan was done which once again confirmed the finding of known metastatic endometrial cancer to the lungs with pleural effusions. Supportive and symptomatic care was recommended. 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 The patient continued to, however, decline day-by-day and Palliative Care Team needed to be involved. Eventually, she was made a DNR given her poor response and poor tolerance to chemotherapy and worsening symptoms. Dr. Chan had long discussions with the family earlier yesterday morning, and the patient was made comfort care. I was called later by the RN when the patient . Her time of is 1846. I have seen and examined the patient early in the morning. Please see hospitalist progress note dated from the day of for full details. Job ID: [id number]
== END 2018-09-28 20:30 | disposition expired | DRG 180 ==
LOC: ERS 19:58 → 2NO 09-16 00:10 → ONC 09-18 20:52
PROVIDERS: ADMIT Internal Medicine; ATTEND Internal Medicine
DX: C78.00 Secondary malignant neoplasm of unspecified lung (principal); J96.01 Acute respiratory failure with hypoxia; I26.99 Other pulmonary embolism without acute cor pulmonale; E87.0 Hyperosmolality and hypernatremia; E87.2 Acidosis; J91.0 Malignant pleural effusion; Z66 Do not resuscitate; Z51.5 Encounter for palliative care; I95.9 Hypotension, unspecified; C54.1 Malignant neoplasm of endometrium; G89.29 Other chronic pain; Z96.612 Presence of left artificial shoulder joint; R11.2 Nausea with vomiting, unspecified; F32.9 Major depressive disorder, single episode, unspecified; Z96.611 Presence of right artificial shoulder joint; D64.9 Anemia, unspecified; E66.9 Obesity, unspecified; E11.9 Type 2 diabetes mellitus without complications; Z98.51 Tubal ligation status; Z79.01 Long term (current) use of anticoagulants; Z90.49 Acquired absence of other specified parts of digestive tract; Z87.891 Personal history of nicotine dependence; Z68.34 Body mass index [BMI] 34.0-34.9, adult
CPT/HCPCS: 36415; 36416; 71045; 71046; 71260; 74018; 74019; 80048; 80053; 82728; 82805; 83540; 83550; 83735; 84443; 84484; 85007; 85014; 85018; 85025; 85027; 85049; 85610; 85730; 86850; 86900; 86901; 87040; 87086; 93005; 93010; 93306; 96374; 96375; J0692; J0780; J1100; J1200; J1650; J1940; J1956; J2060; J2270; J2405; J2469; J2550; J2765; J3010; J3486; J3490; J7042; J7050; J8597; J9045; J9267; Q0163; Q5108; Q9966; S0028